=== PATIENT | female | born 1970 | race Caucasian/White ===

== ENCOUNTER 2016-10-04 16:19 | Emergency (ER) | payer OTHER ==
[2016-10-04 16:46] VITALS: BP 120/93
[2016-10-04] MEDS ORDERED: Ondansetron ODT TAB* 4 MG PO ONE (17:01)
--- NOTE | 2016-10-04 18:20 | UC ---
Aleksandar Henao Benjamin, scribed for Ian Salcedo MD on 10/04/16 at 1706 . Abdominal Pain Female HPI - HPI Summary HPI Summary: 45yo female c/o abdominal pain, vomiting, and diarrhea since 2 days ago. Pt reports symptoms initially starting as indigestion kind of pain, then pt started to diarrhea and vomiting. Pt describes having green BM and green vomits. Pt has hx of GERD but hasnt been taking his GERD meds in the last few days due to vomiting. Also reports diaphoresis, but denies any urinary symptoms. Abdominal surgical hx includes cholecystectomy. - History of Current Complaint Chief Complaint: UCAbdominalPain Stated Complaint: VOMITING/DIARRHEA Time Seen by Provider: 10/04/16 16:48 Hx Obtained From: Patient Hx Last Menstrual Period: now Onset/Duration: Lasting Days, Still Present Timing: Constant Severity Initially: Moderate Severity Currently: Moderate Pain Intensity: 6 Pain Scale Used: 0-10 Numeric Location: Diffuse Radiates: No Character: Other - indigestion like Aggravating Factor(s): Nothing Alleviating Factor(s): Nothing Associated Signs and Symptoms: Positive: Diaphoresis, Vomiting, Diarrhea. Negative: Blood in Stool, Urinary Symptoms Allergies/Adverse Reactions: Allergies Allergy/AdvReac Type Severity Reaction Status Date / Time No Known Allergies Allergy Verified 10/04/16 16:47 PMH/Surg Hx/FS Hx/Imm Hx GI/ History: Gastroesophageal Reflux Psychological History: Depression Other History Of: Negative For: Anticoagulant Therapy - Surgical History Surgical History: Yes Surgery Procedure, Year, and Place[place] [place] 16 [place] [facility] [place] [place] [place] - Family History Known Family History: Positive: Hypertension, Diabetes - Social History Occupation: Employed Full-time Lives: With Family Alcohol Use: Occasionally Substance Use Type: Prescribed Smoking Status (MU): Light Every Day Tobacco Smoker Type: Cigarettes Amount Used/How Often: 1/4-1/2 ppd X 20 YEARS Have You Smoked in the Last Year: Yes - Immunization History Most Recent Influenza Vaccination: unknown Most Recent Tetanus Shot: unknown Most Recent Pneumonia Vaccination: never Review of Systems Constitutional: Other - diaphoresis Skin: Negative Eyes: Negative ENT: Negative Respiratory: Negative Cardiovascular: Negative Gastrointestinal: Abdominal Pain, Vomiting, Diarrhea Genitourinary: Negative Motor: Negative Neurovascular: Negative Musculoskeletal: Negative Neurological: Negative Psychological: Negative All Other Systems Reviewed And Are Negative: Yes Physical Exam Triage Information Reviewed: Yes Appearance: Ill-Appearing - mildly Vital Signs: Initial Vital Signs Temp 99.1 F 10/04/16 16:43 Pulse 88 10/04/16 16:43 Resp 12 10/04/16 16:43 BP 120/93 10/04/16 16:43 Pulse Ox 97 10/04/16 16:43 Eyes: Positive: Conjunctiva Clear ENT: Positive: Normal ENT inspection, Hearing grossly normal Neck: Positive: Supple, Nontender Respiratory: Positive: Lungs clear, Normal breath sounds, No respiratory distress Cardiovascular: Positive: RRR, No Murmur Abdomen Description: Positive: No Organomegaly, Soft, Other: - mild gastric tenderess. Negative: CVA Tenderness (R), CVA Tenderness (L) Bowel Sounds: Positive: Present Musculoskeletal: Positive: Strength Intact, ROM Intact Psychological: Positive: Age Appropriate Behavior Skin: Negative: rashes Re-Evaluation - Re-Evaluation First Eval Re-Evaluation Time: 17:49 Change: Improved Comment: Rechecked pt's contidion. Pt states feeling better. She would like to be discharged now. Abd Pain Female Course/Dx - Course Course Of Treatment: Reviewed pts medication and allergy lists. Blood pressure noted. PATIENT IMPROVED IN THE CLINIC AFTER ZOFRAN 4MG PO. PATIENT IS NOT CLINICALLY OBSTRUCTED. ABD PAIN IS UPPER ABD AND MILD. PT HAS ALREADY HAS HER GALLBLADDER OUT. PATIENT TOLERATED WATER IN CLINIC AND WISHES TO GO HOME WITH ZOFRAN RX. I DISCUSSED GETTING TREATMENT IN THE EMERGENCY DEPARTMENT IF YOU DOES NOT FULLY IMPROVE OR SHE GETS WORSE; SHE AND HER AGREED. - Differential Dx/Diagnosis Provider Diagnoses: DEHYDRATION, NAUSEA, VOMITING AND ABDOMINAL PAIN. Discharge - Discharge Plan Condition: Stable Disposition: HOME Prescriptions: Ondansetron ODT TAB* [Zofran 4 MG Odt TAB*] 4 mg PO Q6H PRN #10 tab.odt PRN Reason: Nausea Patient Education Materials: Dehydration (ED), Acute Nausea and Vomiting (ED), Abdominal Pain (ED) Referrals: Lorenza Wheeler NP [Primary Care Provider] - Additional Instructions: FOLLOW UP WITH YOUR DOCTOR. GO TO THE EMERGENCY DEPARTMENT FOR ANY WORSENING OF YOUR CONDITION: PAIN, FEVER , DEHYDRATION, BLOOD IN YOUR STOOL, YOU DO NOT IMPROVE OR QUESTIONS OR CONCERNS. The documentation as recorded by the scribAleksandar garcia Benjamin accurately reflects the service I personally performed and the decisions made by me, Ian Salcedo MD.
== END 2016-10-04 17:57 | disposition home or self-care (01) ==
LOC: UCEAST 16:19
DX: E86.0 Dehydration (principal); R11.2 Nausea with vomiting, unspecified; R10.84 Generalized abdominal pain; K21.9 Gastro-esophageal reflux disease without esophagitis; F32.9 Major depressive disorder, single episode, unspecified; Z90.49 Acquired absence of other specified parts of digestive tract; F17.210 Nicotine dependence, cigarettes, uncomplicated
CPT/HCPCS: 99212; A9270-GY; G0463

== ENCOUNTER 2016-10-05 09:01 | Emergency (ER) | payer OTHER ==
[2016-10-05] MEDS ORDERED: NS 0.9% 1000 ML* 1,000 ML IV ONE ×2 (09:20→10:26)
[2016-10-05] MEDS ORDERED: Ondansetron INJ* 2 MG/ML VIAL IV ONE (09:20)
[2016-10-05] MEDS ORDERED: Ondansetron INJ* 2 MG/ML VIAL ONE (09:23)
[2016-10-05 09:54] LABS: Hematocrit 53 % (35-47); Hemoglobin 18.5 g/dl (12.0-16.0); Mean Corpuscular HGB Conc 35 g/dl (31-36); Mean Corpuscular Hemoglobin 31 pg (27-31); Mean Corpuscular Volume 87 fL (80-97); Mean Platelet Volume 8 um3 (7.4-10.4); Red Blood Count 6.07 10^6/ul (4.0-5.4); Red Cell Distribution Width 14 % (10.5-15); White Blood Count 8.1 10^3/ul (3.5-10.8)
[2016-10-05 09:55] LABS: Comments Flag Yes
[2016-10-05 09:56] LABS: Add Diff/Slide Review? Slide Review Added
[2016-10-05 10:10] LABS: Albumin 4.7 g/dL (3.2-5.2); Anion Gap 10 mmol/L (2-11); BUN/Creatinine Ratio 12.2 (8-20); Blood Urea Nitrogen 14 mg/dL (6-24); CO2 Carbon Dioxide 22 mmol/L (22-32); Calcium 8.8 mg/dL (8.6-10.3); Chloride 100 mmol/L (101-111); EGFR African American 65.6 (>60); Glucose 142 mg/dL (70-100); Potassium 3.1 mmol/L (3.5-5.0); Sodium 132 mmol/L (133-145); Total Protein 8.1 g/dL (6.4-8.9)
[2016-10-05 10:11] LABS: ALT 18 U/L (7-52); AST 21 U/L (13-39); Alkaline Phosphatase 80 U/L (34-104); C Reactive Protein 8.19 mg/L (< 5.00); Globulin 3.4 g/dL (2-4); Lipase 17 U/L (11.0-82.0)
[2016-10-05] MEDS ORDERED: NS 0.9% 1000 ML* 2,000 ML IV ONE (10:27)
[2016-10-05] MEDS ORDERED: Al Hydrox/Mg Hydrox/Simet LIQ* 30 ML UDC PO ONE (10:28)
[2016-10-05] MEDS ORDERED: PROCHLORPERAZINE INJ 5 MG/ML 2 ML VIAL IV ONE (10:29)
[2016-10-05] MEDS ORDERED: Lidocaine 2% VISCOUS* 15 ML UDC PO ONE (10:29)
[2016-10-05 10:41] LABS: Urine Bacteria Absent (Absent); Urine Bilirubin Negative (Negative); Urine Glucose Negative (Negative); Urine Nitrite Negative (Negative)
--- NOTE | 2016-10-05 10:51 | ED ---
Abdominal Pain/Female - HPI Summary HPI Summary: Patient presents with epigastric abdominal discomfort, N/V, diarrhea x 3 days. She was seen at yesterday and given Zofran. She has relief for short periods of time, then will return shortly before she is due for another dose. She ate some [employer] on Tuesday, but denies eating anything new. Denies allergies, takes no medications and is otherwise healthy. PSHx includes cholecystectomy. Diarrhea and emesis are both yellowish green in color. Raphael antibiotic use. She states she has not been able to keep any food or drink down and feels dehydrated. Denies sick contacts, medication changes, or travel. Denies chest pain, SOB or BENDER. - History of Current Complaint Chief Complaint: EDAbdPain Stated Complaint: VOMITING, Time Seen by Provider: 10/05/16 09:10 Hx Obtained From: Patient Hx Last Menstrual Period: now ?: No Onset/Duration: Sudden Onset Timing: Constant Severity Initially: Moderate Severity Currently: Moderate Pain Intensity: 4 Pain Scale Used: 0-10 Numeric Location: Epigastric Radiates: No Character: Cramping, Colicy Aggravating Factor(s): Nothing Alleviating Factor(s): Medications Associated Signs and Symptoms: Positive: Nausea, Vomiting, Diarrhea - Risk Factors Ectopic Risk Factor: Negative Ovarian Torsion Risk Factor: Negative Allergies/Adverse Reactions: Allergies Allergy/AdvReac Type Severity Reaction Status Date / Time No Known Allergies Allergy Verified 10/04/16 16:47 PMH/Surg Hx/FS Hx/Imm Hx Previously Healthy: Yes Endocrine/Hematology History: Denies: Hx Anticoagulant Therapy, Hx Diabetes, Hx Thyroid Disease Cardiovascular History: Reports: Hx Angina - 12/2013- STATES WAS ANXIETY RELATED Denies: Hx Coronary Artery Disease, Hx Hypercholesterolemia, Hx Hypertension , Hx Myocardial Infarction, Hx Pacemaker/ICD, Hx Valvular Heart Disease Respiratory History: Reports: Hx Asthma - PRN PROAIR, Other Respiratory Problems /Disorders - VOCAL CORD POLYPS Denies: Hx Chronic Obstructive Pulmonary Disease (COPD) GI History: Reports: Hx Gastroesophageal Reflux Disease - ROUTINE MEDICATION FOR Denies: Hx Ulcer History: Denies: Hx Renal Disease Sensory History: Reports: Hx Contacts or Glasses - GLASSES Denies: Hx Hearing Aid Opthamlomology History: Reports: Hx Contacts or Glasses - GLASSES Neurological History: Denies: Hx Dementia, Hx Seizures Psychiatric History: Reports: Hx Anxiety - MEDICATION FOR, Hx Depression - MEDICATION FOR Denies: Hx Substance Abuse - Surgical History Surgery Procedure, Year, and Place: [place] [place] 16 [place] [facility] [place] [place] [place] Hx Anesthesia Reactions: Yes - NAUSEA AND VOMITING - Immunization History Hx Pertussis Vaccination: No Immunizations Up to Date: Unable to Obtain/Confirm Infectious Disease History: No Infectious Disease History: Denies: Hx Clostridium Difficile, Hx Hepatitis, Hx Human Immunodeficiency Virus (HIV), History Other Infectious Disease, Traveled Outside the [place] in Last 30 Days - Family History Known Family History: Positive: Hypertension, Diabetes - Social History Occupation: Employed Full-time Lives: With Family Alcohol Use: Occasionally Hx Substance Use: Yes Substance Use Type: Reports: Prescribed Hx Tobacco Use: Yes Smoking Status (MU): Light Every Day Tobacco Smoker Type: Cigarettes Amount Used/How Often: 1/4-1/ ppd X 20 YEARS Have You Smoked in the Last Year: Yes Review of Systems Constitutional: Negative Eyes: Negative Cardiovascular: Negative Respiratory: Negative Positive: Abdominal Pain - epigastric, Vomiting, Diarrhea, Nausea Positive: no symptoms reported, see HPI Musculoskeletal: Negative Neurological: Negative Psychological: Normal All Other Systems Reviewed And Are Negative: Yes Physical Exam Triage Information Reviewed: Yes Vital Signs On Initial Exam: Initial Vitals Temp Pulse Resp BP Pulse Ox 97.7 F 100 17 128/90 98 10/05/16 09:02 10/05/16 09:02 10/05/16 09:02 10/05/16 09:02 10/05/16 09:02 Vital Signs Reviewed: Yes Appearance: Positive: Ill-Appearing Skin: Positive: Warm, Dry Eyes: Positive: Normal, MICA Neck: Positive: Supple, No Lymphadenopathy Respiratory/Lung Sounds: Positive: Clear to Auscultation, Breath Sounds Present Cardiovascular: Positive: RRR, Pulses are Symmetrical in both Upper and Lower Extremities Abdomen Description: Positive: Soft Bowel Sounds: Positive: Hyperactive Musculoskeletal: Positive: Normal, Strength/ROM Intact Neurological: Positive: Sensory/Motor Intact, Alert, Oriented to Person Place, Time - [place] Coma Scale Coma Scale Total: 15 Diagnostics - Vital Signs Vital Signs Temp Pulse Resp BP Pulse Ox 10/05/16 09:26 97.7 F 100 17 128/90 98 10/05/16 09:02 97.7 F 100 17 128/90 98 - Laboratory Lab Results: Lab Results 10/05/16 10/05/16 10/05/16 Range/Units 09:40 09:40 09:40 WBC 8.1 (3.5-10.8) 10^3/ul RBC 6.07 H (4.0-5.4) 10^6/ul Hgb 18.5 H (12.0-16.0) g/dl Hct 53 H (35-47) % MCV 87 (80-97) fL MCH 31 (27-31) pg MCHC 35 (31-36) g/dl RDW 14 (10.5-15) % Plt Count 362 (150-450) 10^3/ul MPV 8 (7.4-10.4) um3 Neut % (Auto) 80.2 (38-83) % Lymph % (Auto) 10.8 L (25-47) % [place] % (Auto) 7.9 (1-9) % Eos % (Auto) 0.8 (0-6) % Baso % (Auto) 0.3 (0-2) % Absolute Neuts (auto) 6.5 (1.5-7.7) 10^3/ul Absolute Lymphs (auto) 0.9 L (1.0-4.8) 10^3/ul Absolute Monos (auto) 0.6 (0-0.8) 10^3/ul Absolute Eos (auto) 0.1 (0-0.6) 10^3/ul Absolute Basos (auto) 0 (0-0.2) 10^3/ul Absolute Nucleated RBC 0.01 10^3/ul Nucleated RBC % 0.1 Sodium 132 L (133-145) mmol/L Potassium 3.1 L (3.5-5.0) mmol/L Chloride 100 L (101-111) mmol/L Carbon Dioxide 22 (22-32) mmol/L Anion Gap 10 (2-11) mmol/L BUN 14 (6-24) mg/dL Creatinine 1.15 H (0.51-0.95) mg/dL Est GFR ( Amer) 65.6 (>60) Est GFR (Non-Af Amer) 51.0 (>60) BUN/Creatinine Ratio 12.2 (8-20) Glucose 142 H (70-100) mg/dL Lactic Acid 2.4 H* (0.5-2.0) mmol/L Calcium 8.8 (8.6-10.3) mg/dL Total Bilirubin 0.50 (0.2-1.0) mg/dL AST 21 (13-39) U/L ALT 18 (7-52) U/L Alkaline Phosphatase 80 (34-104) U/L C-Reactive Protein 8.19 H (< 5.00) mg/L Total Protein 8.1 (6.4-8.9) g/dL Albumin 4.7 (3.2-5.2) g/dL Globulin 3.4 (2-4) g/dL Albumin/Globulin Ratio 1.4 (1-3) Lipase 17 (11.0-82.0) U/L Beta HCG, Quant < 0.60 mIU/mL Result Diagrams: 10/05/16 09:40 10/05/16 09:40 Lab Statement: Any lab studies that have been ordered have been reviewed, and results considered in the medical decision making process. Abdominal Pain Fem Course/Dx - Course Course Of Treatment: Patient given 3L fluid, zofran, compazine, maalox and viscous lidocaine 2% for relief of symptoms. Abdomen non-tender with abdominal pain located primarily in the epigastric region and not worse with palpation. Stool sample given. Will await results. test negative. Compazine prescribed. Patient feeling improved upon discharge. This is likely gastroenteritis given the symptoms. Not concerned with GB d/t cholecystectomy. No pain over the RLQ, rebound tenderness and negative mcburney's point or fever so little concern for appendicitis. No hx of diverticulitis or diverticulosis. She is dehydrated from vomiting and diarrhea. She was repleted with good effect. She is encouraged to follow up with PCP and return if symptoms become worse. Explained will defer at this time for the CT scan based on symptoms, and patient agrees. Medications were reveiwed with patient. Return precautions given. Patient understands and agrees with plan. Ok for discharge. - Diagnoses Differential Diagnosis: Positive: Diverticulitis, Pancreatitis, Urinary Tract Infection Provider Diagnoses: Gastroenteritis Discharge - Discharge Plan Condition: Stable Disposition: HOME Patient Education Materials: Acute Nausea and Vomiting (ED), Gastroenteritis ( ED) Additional Instructions: Dx. Nausea and vomiting from gastroenteritis If you are having episodes of vomiting, you may become dehydrated. Drink plenty of fluids. If you feel you cannot keep enough fluids down, you may supplement with drinks like Gatorade or V8 juice. This will help balance your electrolytes which are lost during dehydration. Take any medication prescribed to you as directed. Compazine: This medicine may make you dizzy. Do not drive or do anything else that could be dangerous until you know how this medicine affects you. Slowly introduce foods into your diet that you can tolerate. Examples of low reactive foods are crackers, soup, rice, and breads. See below. If you have any questions regarding your medications, you may call the office or your pharmacist. If your symptoms fail to improve or worsen, please call your primary care provider or seek other medical attention. Drink small amounts of fluid as tolerated When able to eat follow BRAT diet: Bananas, rice, applesauce, toast Symptoms likely due to viral gastroenteritis Follow up with primary within 5 days Return to ED if develop fever that does not respond to Tylenol or ibuprofen, severe abdominal pain, or any new or worsening symptoms
[2016-10-05 13:03] VITALS: BP 118/80
== END 2016-10-05 13:12 | disposition home or self-care (01) ==
LOC: ED 09:01
DX: K52.9 Noninfective gastroenteritis and colitis, unspecified (principal); R11.2 Nausea with vomiting, unspecified; R19.7 Diarrhea, unspecified; F17.210 Nicotine dependence, cigarettes, uncomplicated; R10.13 Epigastric pain
CPT/HCPCS: 36415; 80053; 81003; 81015; 82272; 83605; 83690; 84702; 85025; 86140; 87045; 87046; 87077; 87086; 87899; 96374; 96375; 99284; A9270-GY; J0780; J2405

== ENCOUNTER 2016-10-08 08:52 | Emergency (ER) | payer OTHER ==
--- NOTE | 2016-10-08 08:54 | PN ---
Progress Note - Progress Note Date of Service: 10/05/16 Note: negative shiga toxin in stool culture. positive for occult blood.
[2016-10-08] MEDS ORDERED: Ondansetron INJ* 2 MG/ML VIAL IV ONE (09:20)
[2016-10-08] MEDS ORDERED: Famotidine IV* 10 MG/ML 2 ML (20 mg) IV ONE (09:20)
[2016-10-08] MEDS ORDERED: NS 0.9% 1000 ML* 2,000 ML IV ONE (09:20)
--- NOTE | 2016-10-08 10:16 | RAD ---
Indication: Pain. Flat and upright views of the abdomen demonstrates no free air. There is air throughout the colon. No dilated loops of bowel are noted. Patient status post cholecystectomy. IMPRESSION: Patient is status post cholecystectomy with no free air or obstruction.
[2016-10-08 10:58] LABS: Hematocrit 49 % (35-47); Hemoglobin 17.3 g/dl (12.0-16.0); Mean Corpuscular HGB Conc 35 g/dl (31-36); Mean Corpuscular Hemoglobin 30 pg (27-31); Mean Corpuscular Volume 86 fL (80-97); Mean Platelet Volume 8 um3 (7.4-10.4); Red Blood Count 5.76 10^6/ul (4.0-5.4); Red Cell Distribution Width 13 % (10.5-15); White Blood Count 7.7 10^3/ul (3.5-10.8)
[2016-10-08 11:18] LABS: Albumin 4.4 g/dL (3.2-5.2); BUN/Creatinine Ratio 10.5 (8-20); C Reactive Protein 18.12 mg/L (< 5.00); Calcium 8.9 mg/dL (8.6-10.3); EGFR African American 81.8 (>60); EGFR Non-African American 63.6 (>60); Globulin 2.8 g/dL (2-4); Total Bilirubin 0.9 mg/dL (0.2-1.0); Total Protein 7.2 g/dL (6.4-8.9)
[2016-10-08 11:27] LABS: Potassium 2.7 mmol/L (3.5-5.0)
[2016-10-08] MEDS ORDERED: Potassium Chlor TAB* 20 MEQ TAB.ER PO ONE (11:33)
[2016-10-08 11:53] LABS: Urine Bacteria Absent (Absent); Urine Bilirubin Negative (Negative); Urine Glucose Negative (Negative); Urine Nitrite Negative (Negative)
[2016-10-08 12:02] LABS: Magnesium 1.8 mg/dL (1.9-2.7)
[2016-10-08] MEDS: KCL 10 MEQ/50 ML IVPREMIX* 10 MEQ/50 ML BAG IV SCH ×2 (12:43→13:43)
[2016-10-08] MEDS ORDERED: Magnesium Oxide TAB* 400 MG PO ONE (13:11)
--- NOTE | 2016-10-08 14:18 | RAD ---
INDICATION: Elevated liver function studies COMPARISON: None TECHNIQUE: Longitudinal and transverse scans of the right upper quadrant were obtained. Doppler interrogation of the hepatic and portal venous system was performed. FINDINGS: Liver: The liver is normal in size. There is hepatic steatosis. There is no focal mass. The liver measures 14.7 cm in cephalocaudal dimension. Vessels: There is normal hepatic and portal venous flow. Bile ducts: There is no evidence of intrahepatic or extrahepatic ductal dilatation. The common duct measures 0.5 cm. Gallbladder: Cholecystectomy. Pancreas: The visualized pancreas appears normal. Pancreatic tail is not well evaluated Right kidney: The right kidney is normal in size and echogenicity. There are no masses or calculi. There is no evidence of hydronephrosis. The right kidney measures 12.1 x 4.3 x 4.9 cm. IVC and aorta: The proximal aorta and superior vena cava appear normal. Fluid: There is no ascites. Other: None. IMPRESSION: HEPATIC STEATOSIS. CHOLECYSTECTOMY.
[2016-10-08 15:26] LABS: Urine Bilirubin Negative (Negative); Urine Glucose Negative (Negative); Urine Nitrite Negative (Negative)
[2016-10-08 15:37] VITALS: BP 115/84
--- NOTE | 2016-10-08 18:51 | ED ---
José Henao Angela, scribed for Kyaw Sahni MD on 10/08/16 at 0938 . GI/ HPI - HPI Summary HPI Summary: Pt is a 45 y/o female presenting to [facility] c/o nausea, vomiting, diarrhea x6 days. Pt reports she was seen in the ED yesterday and her urine culture revealed E. coli and was diagnosed with a UTI. She was prescribed Bactrim and has taken one dose yesterday and this morning. She is in the ED because she has nausea and vomiting, now with diarrhea unable to take her Bactrim dose. Pt denies abd pain, fever,chills, chest pain, SOB, palpitations. - History of Current Complaint Chief Complaint: EDNauseaVomitDiarrh Time Seen by Provider: 10/08/16 09:20 Stated Complaint: ABD PAIN,VOMITTING,NAUSEA Hx Obtained From: Patient Hx Last Menstrual Period: now Onset/Duration: Started Days Ago Timing: Lasting Days Pain Intensity: 6 Associated Signs and Symptoms: Positive: Nausea, Vomiting, Diarrhea - Allergy/Home Medications Allergies/Adverse Reactions: Allergies Allergy/AdvReac Type Severity Reaction Status Date / Time No Known Allergies Allergy Verified 10/08/16 09:14 PMH/Surg Hx/FS Hx/Imm Hx Endocrine/Hematology History: Denies: Hx Anticoagulant Therapy, Hx Diabetes, Hx Thyroid Disease Cardiovascular History: Reports: Hx Angina - 12/2013- STATES WAS ANXIETY RELATED Denies: Hx Coronary Artery Disease, Hx Hypercholesterolemia, Hx Hypertension , Hx Myocardial Infarction, Hx Pacemaker/ICD, Hx Valvular Heart Disease Respiratory History: Reports: Hx Asthma - PRN PROAIR, Other Respiratory Problems /Disorders - VOCAL CORD POLYPS Denies: Hx Chronic Obstructive Pulmonary Disease (COPD) GI History: Reports: Hx Gastroesophageal Reflux Disease - ROUTINE MEDICATION FOR Denies: Hx Ulcer History: Denies: Hx Renal Disease Sensory History: Reports: Hx Contacts or Glasses - GLASSES Denies: Hx Hearing Aid Opthamlomology History: Reports: Hx Contacts or Glasses - GLASSES Neurological History: Denies: Hx Dementia, Hx Seizures Psychiatric History: Reports: Hx Anxiety - MEDICATION FOR, Hx Depression - MEDICATION FOR Denies: Hx Substance Abuse - Surgical History Surgery Procedure, Year, and Place: tubal ligation-[facility]. breast reduction-AGE 16 - [facility]. cyst removed from thumb-[facility]. cholecystectomy-[facility] Hx Anesthesia Reactions: Yes - NAUSEA AND VOMITING Infectious Disease History: Denies: Hx Clostridium Difficile, Hx Hepatitis, Hx Human Immunodeficiency Virus (HIV), History Other Infectious Disease, Traveled Outside the [place] in Last 30 Days - Family History Known Family History: Positive: Hypertension, Diabetes - Social History Alcohol Use: Occasionally Hx Substance Use: Yes Substance Use Type: Reports: Prescribed Hx Tobacco Use: Yes Smoking Status (MU): Light Every Day Tobacco Smoker Type: Cigarettes Amount Used/How Often: 1/4-1/2 ppd X 20 YEARS Have You Smoked in the Last Year: Yes Review of Systems Negative: Fever, Chills Negative: Palpitations, Chest Pain Negative: Shortness Of Breath Positive: Vomiting, Diarrhea, Nausea. Negative: Abdominal Pain All Other Systems Reviewed And Are Negative: Yes Physical Exam - Summary Physical Exam Summary: VITAL SIGNS: Reviewed. GENERAL: Patient is a well-developed and nourished male who is lying comfortable in the stretcher. Patient is not in any acute respiratory distress. HEAD AND FACE: Normocephalic and atraumatic. EYES: PERRLA, EOMI x 2, No injected conjunctiva. EARS: Hearing grossly intact. Ear canals and tympanic membranes are WNL. MOUTH: Oropharynx within normal limits. NECK: Supple, trachea is midline, no adenopathy, no JVD. CHEST: Symmetric, no tenderness at palpation LUNGS: Clear to auscultation bilaterally. No wheezing or crackles. CVS: RRR, S1 and S2 present, no murmurs or gallops appreciated. ABDOMEN: Soft, non-tender. No signs of distention. Positive bowel sounds. No rebound no guarding, and no masses palpated. No abdominal bruit or pulsations. EXTREMITIES: FROM in all major joints, no edema, no cyanosis or clubbing. NEURO: Alert and oriented x 3. No acute neurological deficits. Speech is normal. SKIN: Dry and warm Triage Information Reviewed: Yes Vital Signs On Initial Exam: Initial Vitals Temp Pulse Resp BP Pulse Ox 96.7 F 100 16 132/89 97 10/08/16 09:14 10/08/16 09:14 10/08/16 09:14 10/08/16 09:14 10/08/16 09:14 Vital Signs Reviewed: Yes Diagnostics - Vital Signs Vital Signs Temp Pulse Resp BP Pulse Ox 10/08/16 09:14 96.7 F 100 16 132/89 97 - Laboratory Lab Results: Lab Results 10/08/16 10/08/16 10/08/16 Range/Units 10:39 10:39 10:39 WBC 7.7 (3.5-10.8) 10^3/ul RBC 5.76 H (4.0-5.4) 10^6/ul Hgb 17.3 H (12.0-16.0) g/dl Hct 49 H (35-47) % MCV 86 (80-97) fL MCH 30 (27-31) pg MCHC 35 (31-36) g/dl RDW 13 (10.5-15) % Plt Count 309 (150-450) 10^3/ul MPV 8 (7.4-10.4) um3 Neut % (Auto) 71.3 (38-83) % Lymph % (Auto) 14.0 L (25-47) % [place] % (Auto) 11.5 H (1-9) % Eos % (Auto) 2.2 (0-6) % Baso % (Auto) 1.0 (0-2) % Absolute Neuts (auto) 5.5 (1.5-7.7) 10^3/ul Absolute Lymphs (auto) 1.1 (1.0-4.8) 10^3/ul Absolute Monos (auto) 0.9 H (0-0.8) 10^3/ul Absolute Eos (auto) 0.2 (0-0.6) 10^3/ul Absolute Basos (auto) 0.1 (0-0.2) 10^3/ul Absolute Nucleated RBC 0.01 10^3/ul Nucleated RBC % 0.2 Sodium 130 L (133-145) mmol/L Potassium 2.7 L* (3.5-5.0) mmol/L Chloride 99 L (101-111) mmol/L Carbon Dioxide 20 L (22-32) mmol/L Anion Gap 11 (2-11) mmol/L BUN 10 (6-24) mg/dL Creatinine 0.95 (0.51-0.95) mg/dL Est GFR ( Amer) 81.8 (>60) Est GFR (Non-Af Amer) 63.6 (>60) BUN/Creatinine Ratio 10.5 (8-20) Glucose 128 H (70-100) mg/dL Lactic Acid 2.7 H* (0.5-2.0) mmol/L Calcium 8.9 (8.6-10.3) mg/dL Magnesium 1.8 L (1.9-2.7) mg/dL Total Bilirubin 0.90 (0.2-1.0) mg/dL AST 213 H (13-39) U/L ALT 199 H (7-52) U/L Alkaline Phosphatase 210 H (34-104) U/L Troponin I 0.00 (<0.04) ng/mL C-Reactive Protein 18.12 H (< 5.00) mg/L Total Protein 7.2 (6.4-8.9) g/dL Albumin 4.4 (3.2-5.2) g/dL Globulin 2.8 (2-4) g/dL Albumin/Globulin Ratio 1.6 (1-3) Amylase 20 L (29-103) U/L Lipase 20 (11.0-82.0) U/L Urine Color Urine Appearance Urine pH (5-9) Ur Specific Man (1.010-1.030) Urine Protein (Negative) Urine Ketones (Negative) Urine Blood (Negative) Urine Nitrate (Negative) Urine Bilirubin (Negative) Urine Urobilinogen (Negative) Ur Leukocyte Esterase (Negative) Urine WBC (Auto) (Absent) Urine RBC (Auto) (Absent) Ur Squamous Epith Cells (Absent) Urine Bacteria (Absent) Hyaline Casts (Absent) Urine Glucose (Negative) Hepatitis A IgM Ab (Nonreactive) Hep Bs Antigen (Nonreactive) Hep B Core IgM Ab (Nonreactive) Hepatitis C Antibody (Nonreactive) 10/08/16 10/08/16 10/08/16 Range/Units 10:39 11:32 14:43 WBC (3.5-10.8) 10^3/ul RBC (4.0-5.4) 10^6/ul Hgb (12.0-16.0) g/dl Hct (35-47) % MCV (80-97) fL MCH (27-31) pg MCHC (31-36) g/dl RDW (10.5-15) % Plt Count (150-450) 10^3/ul MPV (7.4-10.4) um3 Neut % (Auto) (38-83) % Lymph % (Auto) (25-47) % [place] % (Auto) (1-9) % Eos % (Auto) (0-6) % Baso % (Auto) (0-2) % Absolute Neuts (auto) (1.5-7.7) 10^3/ul Absolute Lymphs (auto) (1.0-4.8) 10^3/ul Absolute Monos (auto) (0-0.8) 10^3/ul Absolute Eos (auto) (0-0.6) 10^3/ul Absolute Basos (auto) (0-0.2) 10^3/ul Absolute Nucleated RBC 10^3/ul Nucleated RBC % Sodium (133-145) mmol/L Potassium (3.5-5.0) mmol/L Chloride (101-111) mmol/L Carbon Dioxide (22-32) mmol/L Anion Gap (2-11) mmol/L BUN (6-24) mg/dL Creatinine (0.51-0.95) mg/dL Est GFR ( Amer) (>60) Est GFR (Non-Af Amer) (>60) BUN/Creatinine Ratio (8-20) Glucose (70-100) mg/dL Lactic Acid (0.5-2.0) mmol/L Calcium (8.6-10.3) mg/dL Magnesium (1.9-2.7) mg/dL Total Bilirubin (0.2-1.0) mg/dL AST (13-39) U/L ALT (7-52) U/L Alkaline Phosphatase (34-104) U/L Troponin I (<0.04) ng/mL C-Reactive Protein (< 5.00) mg/L Total Protein (6.4-8.9) g/dL Albumin (3.2-5.2) g/dL Globulin (2-4) g/dL Albumin/Globulin Ratio (1-3) Amylase (29-103) U/L Lipase (11.0-82.0) U/L Urine Color Lillian Straw Urine Appearance Cloudy Clear Urine pH 6.0 7.0 (5-9) Ur Specific Man 1.017 1.003 L (1.010-1.030) Urine Protein 1+(30 mg/dl) H Negative (Negative) Urine Ketones Negative Negative (Negative) Urine Blood Negative Negative (Negative) Urine Nitrate Negative Negative (Negative) Urine Bilirubin Negative Negative (Negative) Urine Urobilinogen Positive H Negative (Negative) Ur Leukocyte Esterase Trace H Negative (Negative) Urine WBC (Auto) Trace(0-5/hpf) (Absent) Urine RBC (Auto) 2+(6-10/hpf) H (Absent) Ur Squamous Epith Cells Present H (Absent) Urine Bacteria Absent (Absent) Hyaline Casts Present H (Absent) Urine Glucose Negative Negative (Negative) Hepatitis A IgM Ab Nonreactive (Nonreactive) Hep Bs Antigen Nonreactive (Nonreactive) Hep B Core IgM Ab Nonreactive (Nonreactive) Hepatitis C Antibody Nonreactive (Nonreactive) Result Diagrams: 10/08/16 10:39 10/08/16 10:39 Lab Statement: Any lab studies that have been ordered have been reviewed, and results considered in the medical decision making process. - Radiology Abdomen XR Xray Interpretation: No Acute Changes - IMPRESSION: Patient is status post cholecystectomy with no free air or obstruction. Radiology Interpretation Completed By: Radiologist - Ultrasound No standard instances Ultrasound Interpretation: Positive (See Comments) - US Abdomen - IMPRESSION: Hepatic steatosis. Cholecystectomy Ultrasound Interpretation Completed By: Radiologist - EKG 10:12 Cardiac Rate: NL - 91 bpm EKG Rhythm: Sinus Rhythm EKG Interpretation: ST depression in I, II, V2, V3, V4, V5, and V6 GIGU Course/Dx - Course Course Of Treatment: Pt is a 45 y/o female presenting to [facility] c/o nausea, vomiting, diarrhea x6 days. Pt reports she was seen in the ED yesterday and her urine culture revealed E. coli and was diagnosed with a UTI. She was prescribed Bactrim and has taken one dose yesterday and this morning. She is in the ED because she has nausea and vomiting, now with diarrhea unable to take her Bactrim dose. Pt denies abd pain, fever,chills, chest pain, SOB, palpitations. Test results shows an increased H and H of 17.3/49, sodium of 130, potassium 2.7 , magnesium 1.8 (for which pt was given potassium chloride, IV run, and magnesium oxide), glucose of 128, AST 213, ALT 199, with a CRP of 18.12. Urinalysis is negative for UTI. Since the pt had increased LFTs, I decided to do a hepatic panel, which is non reactive. I also did an abdomen US, which shows hepatic steatosis and cholecystectomy. I did an X-ray of the abdomen which shows status post cholecystectomy with no free air or obstruction. The pt had a urine culture in the past that was negative for UTI, therefore I dont think she needs to take any type of antibiotics. In the ED course, she was hydrated with IV fluids and given Zofran for nausea and vomiting. After all these medications, the pts symptoms have resolved. The EKG is abnormal with ST depressions but the pt has no chest pain, SOB, epigastric pain or any signs for coronary syndrome. I also ordered a troponin, which resulted 0. Upon further discussion, she had a stress test a few years ago due to an abnormal EKG. The pt is feeling better, she only had 1 episode of diarrhea in the ED, and she is no longer nauseous. The pt was observed in the ED for 7 hours and half without any recurrent symptoms, so we will discharge her home and have her follow up with her PCP requesting repeat LFTs. She was also recommended that if she continues to have diarrhea she can return to the ED. She understands and agrees. She is hemodynamically stable, and alert and oriented x3. I discussed all the findings and test results with the patient. Patient was instructed to return to the emergency room immediately if any of the symptoms return or worsens. Plan of care was discussed with the patient and understands and agrees. All questions were answered at patient satisfaction. There were no further complaints or concerns. - Diagnoses Provider Diagnoses: Nausea, vomiting and diarrhea Discharge - Discharge Plan Condition: Stable Disposition: HOME Patient Education Materials: Acute Diarrhea (ED), Acute Nausea and Vomiting (ED ) Referrals: Lorenza Wheeler NP [Primary Care Provider] - Additional Instructions: Please follow up with your primary care physician to assure your symptoms are improving. The documentation as recorded by the José lopez Angela accurately reflects the service I personally performed and the decisions made by me, Kyaw Sahni MD.
== END 2016-10-08 16:18 | disposition home or self-care (01) ==
LOC: ED 08:52
DX: R11.2 Nausea with vomiting, unspecified (principal); R10.9 Unspecified abdominal pain; R19.7 Diarrhea, unspecified; F17.210 Nicotine dependence, cigarettes, uncomplicated
CPT/HCPCS: 36415; 74020; 76705; 80053; 80074; 81003; 81015; 82150; 83605; 83630; 83690; 83735; 84484; 85025; 86140; 87045; 87046; 87077; 87086; 87493; 87899; 93005; 96374; 96375; 99283; A9270-GY; J2405; J3480

== ENCOUNTER 2017-10-10 19:29 | Emergency (ER) | payer OTHER ==
--- NOTE | 2017-10-10 21:56 | RAD ---
EXAM: US Duplex Left Lower Extremity Veins EXAM DATE/TIME: Exam ordered 10/10/2017 9:21 PM CLINICAL HISTORY: 46 years old, female; Pain; Leg, lower; Left; Additional info: Redness swelling left ankle, distal lower leg TECHNIQUE: Real-time duplex ultrasound scan of the left lower extremity veins integrating B-mode two-dimensional vascular structure, Doppler spectral analysis, color flow Doppler imaging and compression. COMPARISON: US - LE VEIN L VL LOWER EXT VEINS LEFT 2012-07-08 10:42 FINDINGS: Deep veins: Unremarkable. No DVT in the visualized common femoral, femoral, proximal deep femoral or popliteal veins. The veins demonstrate normal color flow, are normally compressible, with normal phasic flow and/or augmentation response. Superficial veins: Unremarkable. No thrombus in the visualized great saphenous vein. Soft tissues: No acute findings. No popliteal cyst. IMPRESSION: Negative left lower extremity venous duplex exam without evidence of deep venous thrombosis.
[2017-10-10] MEDS ORDERED: Sulfamethox/Trimethoprim DS 800/160* TAB PO ONE (22:17)
--- NOTE | 2017-10-10 22:18 | ED ---
Lower Extremity - HPI Summary HPI Summary: Patient presents with redness, swelling, ecchymosis to left ankle and lateral posterior foot starting yesterday night. Patient is on brilinta, sent by PCP for evaluation of possible DVT. Denies trauma, fever, cough, sore throat, CP, SOB, N/V/D, abdominal pain, change in urine, change in BM. Medical history is cardiac stents, depression. - History of Current Complaint Chief Complaint: EDExtremityLower Stated Complaint: LT LEG SWOLLEN Time Seen by Provider: 10/10/17 20:31 Hx Obtained From: Patient Hx Last Menstrual Period: now Mechanism Of Injury: Unknown Onset of Pain: Hours Onset/Duration: Hours Severity Initially: Mild Severity Currently: Mild Pain Intensity: 0 Pain Scale Used: 0-10 Numeric Timing: Constant Location: Is Discrete @ Character Of Pain: Throbbing Associated Signs And Symptoms: Positive: Swelling, Bruising Aggravating Factor(s): Ambulation, Weight Bearing Able to Bear Weight: Yes - Allergies/Home Medications Allergies/Adverse Reactions: Allergies Allergy/AdvReac Type Severity Reaction Status Date / Time No Known Allergies Allergy Verified 10/10/17 19:37 PMH/Surg Hx/FS Hx/Imm Hx Endocrine/Hematology History: Denies: Hx Anticoagulant Therapy, Hx Diabetes, Hx Thyroid Disease Cardiovascular History: Reports: Hx Angina - 12/2013- STATES WAS ANXIETY RELATED Denies: Hx Coronary Artery Disease, Hx Hypercholesterolemia, Hx Hypertension , Hx Myocardial Infarction, Hx Pacemaker/ICD, Hx Valvular Heart Disease Respiratory History: Reports: Hx Asthma - PRN PROAIR, Other Respiratory Problems /Disorders - VOCAL CORD POLYPS Denies: Hx Chronic Obstructive Pulmonary Disease (COPD) GI History: Reports: Hx Gastroesophageal Reflux Disease - ROUTINE MEDICATION FOR Denies: Hx Ulcer History: Denies: Hx Renal Disease Sensory History: Reports: Hx Contacts or Glasses - GLASSES Denies: Hx Hearing Aid Opthamlomology History: Reports: Hx Contacts or Glasses - GLASSES Neurological History: Denies: Hx Dementia, Hx Seizures Psychiatric History: Reports: Hx Anxiety - MEDICATION FOR, Hx Depression - MEDICATION FOR Denies: Hx Substance Abuse - Surgical History Surgery Procedure, Year, and Place: tubal ligation-[facility]. breast reduction-AGE 16 - [facility]. [facility] [place] [place]ole[place]ectomy[place] [place] Hx Anesthesia Reactions: Yes - NAUSEA AND VOMITING Infectious Disease History: No Infectious Disease History: Denies: Hx Clostridium Difficile, Hx Hepatitis, Hx Human Immunodeficiency Virus (HIV), History Other Infectious Disease, Traveled Outside the [place] in Last 30 Days - Family History Known Family History: Positive: Hypertension, Diabetes - Social History Alcohol Use: Occasionally Hx Substance Use: Yes Substance Use Type: Reports: Prescribed Hx Tobacco Use: Yes Smoking Status (MU): Light Every Day Tobacco Smoker Type: Cigarettes Amount Used/How Often: 1/4-1/2 ppd X 20 YEARS Have You Smoked in the Last Year: Yes Review of Systems Constitutional: Negative Eyes: Negative ENT: Negative Cardiovascular: Negative Respiratory: Negative Gastrointestinal: Negative Genitourinary: Negative Musculoskeletal: Negative Skin: Other Neurological: Negative Psychological: Normal All Other Systems Reviewed And Are Negative: Yes Physical Exam - Summary Physical Exam Summary: Ecchymosis and swelling to left lateral foot. Area of erythema and extra warmth to distal do. Evidence of abrasion to distal anterior do erythema. Calf soft nontender. No deformity noted. PMS intact distally Triage Information Reviewed: Yes Vital Signs On Initial Exam: Initial Vitals Temp Pulse Resp BP Pulse Ox 97.6 F 115 18 138/93 96 10/10/17 19:33 10/10/17 19:33 10/10/17 19:33 10/10/17 19:33 10/10/17 19:33 Vital Signs Reviewed: Yes Appearance: Positive: Well-Appearing Skin: Positive: Warm Head/Face: Positive: Normal Head/Face Inspection Eyes: Positive: Normal Neck: Positive: Supple Respiratory/Lung Sounds: Positive: Clear to Auscultation Cardiovascular: Positive: Normal Abdomen Description: Positive: Nontender Musculoskeletal: Positive: Normal Neurological: Positive: Normal Psychiatric: Positive: Normal AVPU Assessment: Alert - Jovanny Coma Scale Best Eye Response: 4 - Spontaneous Best Motor Response: 6 - Obeys Commands Best Verbal Response: 5 - Oriented Coma Scale Total: 15 Diagnostics - Vital Signs Vital Signs Temp Pulse Resp BP Pulse Ox 10/10/17 19:33 97.6 F 115 18 138/93 96 - Laboratory Lab Statement: Any lab studies that have been ordered have been reviewed, and results considered in the medical decision making process. - Ultrasound No standard instances Ultrasound Interpretation: No Acute Changes - Negative for DVT. Ultrasound Interpretation Completed By: Radiologist Lower Extremity Course/Dx - Course Course Of Treatment: Patient presents with redness, swelling, ecchymosis to left ankle and lateral posterior foot starting yesterday night. Patient is on brilinta, sent by PCP for evaluation of possible DVT. Denies trauma, fever, cough, sore throat, CP, SOB, N/V/D, abdominal pain, change in urine, change in BM. Medical history is cardiac stents, depression. Physical exam:Ecchymosis and swelling to left lateral foot. Area of erythema and extra warmth to distal do. Evidence of abrasion to distal anterior do erythema. Calf soft nontender. No deformity noted. PMS intact distally. Ultrasound negative for DVT. Likely cellulitis. Rx for Bactrim. Follow-up with primary care - Diagnoses Provider Diagnoses: Cellulitis Discharge - Sign-Out/Discharge Documenting (check all that apply): Patient Departure - Discharge Plan Condition: Stable Disposition: HOME Prescriptions: Sulfamethox/Trimethoprim DS* [Bactrim DS 800/160 TAB*] 1 tab PO BID 10 Days #20 tab Patient Education Materials: Cellulitis (ED) Referrals: Lorenza Wheeler NP [Primary Care Provider] - - Billing Disposition and Condition Condition: STABLE Disposition: Home
[2017-10-10 23:03] VITALS: BP 135/95
== END 2017-10-10 23:02 | disposition home or self-care (01) ==
LOC: ED 19:29
DX: L03.116 Cellulitis of left lower limb (principal); K21.9 Gastro-esophageal reflux disease without esophagitis; F32.9 Major depressive disorder, single episode, unspecified; F41.9 Anxiety disorder, unspecified; J45.909 Unspecified asthma, uncomplicated
CPT/HCPCS: 99281; A9270-GY

== ENCOUNTER → 2017-10-31 21:47 | Emergency (ER) | payer OTHER ==
--- NOTE | 2017-10-31 23:02 | ED ---
Skin Complaint - HPI Summary HPI Summary: 46-year-old female presents with a rash since she will that this morning. She states the rash on her lower legs. she states the rash is not itchy. She has not tried anything. No fever or chills. no new products or soaps. She has never had this rash before. States it as a burning type pain. She denies any history of MRSA. She has history of stent placement. She is not diabetic. no chest pain or SOB. no recent illness. no history of ITP. - History of Current Complaint Chief Complaint: EDExtremityLower Time Seen by Provider: 10/31/17 22:43 Stated Complaint: LT AND RT LEG RASH Hx Last Menstrual Period: now Pain Intensity: 7 - Allergy/Home Medications Allergies/Adverse Reactions: Allergies Allergy/AdvReac Type Severity Reaction Status Date / Time No Known Allergies Allergy Verified 10/31/17 21:52 PMH/Surg Hx/FS Hx/Imm Hx Endocrine/Hematology History: Denies: Hx Anticoagulant Therapy, Hx Diabetes, Hx Thyroid Disease Cardiovascular History: Reports: Hx Angina - 12/2013- STATES WAS ANXIETY RELATED Denies: Hx Coronary Artery Disease, Hx Hypercholesterolemia, Hx Hypertension , Hx Myocardial Infarction, Hx Pacemaker/ICD, Hx Valvular Heart Disease Respiratory History: Reports: Hx Asthma - PRN PROAIR, Other Respiratory Problems /Disorders - VOCAL CORD POLYPS Denies: Hx Chronic Obstructive Pulmonary Disease (COPD) GI History: Reports: Hx Gastroesophageal Reflux Disease - ROUTINE MEDICATION FOR Denies: Hx Ulcer History: Denies: Hx Renal Disease Sensory History: Reports: Hx Contacts or Glasses - GLASSES Denies: Hx Hearing Aid Opthamlomology History: Reports: Hx Contacts or Glasses - GLASSES Neurological History: Denies: Hx Dementia, Hx Seizures Psychiatric History: Reports: Hx Anxiety - MEDICATION FOR, Hx Depression - MEDICATION FOR Denies: Hx Substance Abuse - Surgical History Surgery Procedure, Year, and Place: tubal ligation-[facility]. breast [place]AGE 16 [place] [facility] [place] from [place] [place] [place] Hx Anesthesia Reactions: Yes - NAUSEA AND VOMITING Infectious Disease History: No Infectious Disease History: Denies: Hx Clostridium Difficile, Hx Hepatitis, Hx Human Immunodeficiency Virus (HIV), History Other Infectious Disease, Traveled Outside the [place] in Last 30 Days - Family History Known Family History: Positive: Hypertension, Diabetes - Social History Alcohol Use: Occasionally Hx Substance Use: Yes Substance Use Type: Reports: Prescribed Hx Tobacco Use: Yes Smoking Status (MU): Light Every Day Tobacco Smoker Type: Cigarettes Amount Used/How Often: 1/4-1/2 ppd X 20 YEARS Have You Smoked in the Last Year: Yes Review of Systems Negative: Fever Negative: Chest Pain Negative: Shortness Of Breath Positive: Rash All Other Systems Reviewed And Are Negative: Yes Physical Exam Triage Information Reviewed: Yes Vital Signs On Initial Exam: Initial Vitals Temp Pulse Resp BP Pulse Ox 98.1 F 96 20 138/82 95 10/31/17 21:50 10/31/17 21:50 10/31/17 21:50 10/31/17 21:50 10/31/17 21:50 Vital Signs Reviewed: Yes Appearance: Positive: Well-Appearing Skin: Positive: Other - papules across legs, some petechia. Head/Face: Positive: Normal Head/Face Inspection Eyes: Positive: Normal, Conjunctiva Clear ENT: Positive: Pharynx normal Respiratory/Lung Sounds: Positive: Clear to Auscultation, Breath Sounds Present Cardiovascular: Positive: Normal, RRR Musculoskeletal: Positive: Normal Neurological: Positive: Normal Psychiatric: Positive: Normal Diagnostics - Vital Signs Vital Signs Temp Pulse Resp BP Pulse Ox 10/31/17 21:50 98.1 F 96 20 138/82 95 - Laboratory Result Diagrams: 10/31/17 22:59 Lab Statement: Any lab studies that have been ordered have been reviewed, and results considered in the medical decision making process. Course/Dx - Course Course Of Treatment: 46-year-old female presents with a rash since she will that this morning. She states the rash on her lower legs. she states the rash is not itchy. She has not tried anything. No fever or chills. no new products or soaps. She has never had this rash before. States it as a burning type pain. She denies any history of MRSA. She has history of stent placement. She is not diabetic. no chest pain or SOB. no recent illness. no history of ITP. on exam has papules across legs. some petechia. got lab work to make sure not ITP and platelets normal. wbc normal. no evidence of cellulitis. told to place hydrocoritsone on area. patient understand and agrees with plan. - Differential Diagnoses - Skin Complaint Differential Diagnoses: Contact Dermatitis, Urticaria, Other - itp, bug bites - Diagnoses Provider Diagnoses: Rash Discharge - Sign-Out/Discharge Documenting (check all that apply): Patient Departure - Discharge Plan Condition: Good Disposition: HOME Patient Education Materials: Acute Rash (ED) Referrals: Enmanuel Brar MD [Primary Care Provider] - Additional Instructions: can take Benadryl every 6 hours for any pain can apply hydrocortisone to area Follow up with primary within 5 days Return to ED if develop fever, any new or worsening symptoms - Billing Disposition and Condition Condition: GOOD Disposition: Home
[2017-10-31 23:09] LABS: ABS Basophils 0 10^3/ul (0-0.2); ABS Eosinophils 0.2 10^3/ul (0-0.6); ABS Lymphocytes 1.3 10^3/ul (1.0-4.8); ABS Monocytes 0.4 10^3/ul (0-0.8); ABS Neutrophils 3.1 10^3/ul (1.5-7.7); ABS Nucleated RBC 0 10^3/ul; Hematocrit 33 % (35-47); Hemoglobin 11.6 g/dl (12.0-16.0); Lymphocyte % 25.5 % (25-47); Mean Corpuscular HGB Conc 35 g/dl (31-36); Mean Corpuscular Hemoglobin 30 pg (27-31); Mean Corpuscular Volume 86 fL (80-97); Mean Platelet Volume 7.1 um3 (7.4-10.4); Nucleated Red Blood Cells % 0.1; Platelet Count 326 10^3/ul (150-450); Red Blood Count 3.88 10^6/ul (4.00-5.40); Red Cell Distribution Width 14 % (10.5-15)
[2017-11-01] VITALS: BP 124/69
== END | disposition home or self-care (01) ==
LOC: ED 21:47
DX: R21 Rash and other nonspecific skin eruption (principal); F17.210 Nicotine dependence, cigarettes, uncomplicated; Z96.9 Presence of functional implant, unspecified
CPT/HCPCS: 36415; 85025; 86140; 99282

== ENCOUNTER 2017-11-18 12:23 | Emergency (ER) | payer OTHER ==
[2017-11-18 13:08] VITALS: BP 120/80
--- NOTE | 2017-11-18 14:46 | UC ---
Lower Extremity/Ankle HPI - HPI Summary HPI Summary: 46-year-old male presents with one-week history of left leg tenderness and bruising after slipping and falling in her backyard one week ago. Patient is on Brillinta for acute coronary syndrome. Denies calf pain or tenderness, chest pain, shortness of breath, erythema, increased warmth, lower extremity edema, numbness, tingling, or extremity weakness. - History of Current Complaint Chief Complaint: UCLowerExtremity Stated Complaint: LEG INJURY Time Seen by Provider: 11/18/17 14:34 Hx Obtained From: Patient Hx Last Menstrual Period: 10/22/17 Onset/Duration: Sudden Onset, Lasting Weeks - 1 Severity Initially: Moderate Severity Currently: Moderate Pain Intensity: 7 Aggravating Factor(s): Other - touch Alleviating Factor(s): Rest, OTC Meds - ibuprofen Able to Bear Weight: Yes - Allergies/Home Medications Allergies/Adverse Reactions: Allergies Allergy/AdvReac Type Severity Reaction Status Date / Time No Known Allergies Allergy Verified 11/18/17 13:09 Home Medications: Home Medications Atorvastatin* [Lipitor 40 MG*] 40 mg PO DAILY 11/18/17 [History Confirmed ] DOXYcycline CAP(*) [DOXYcycline 100MG CAP(*)] 100 mg PO BID 11/18/17 [History Confirmed 11/18/17] Fexofenadine HCl 180 mg PO DAILY 11/18/17 [History Confirmed 11/18/17] Ticagrelor* [Brilinta 90 MG*] 11/18/17 [History] busPIRone TAB* 11/18/17 [History] PMH/Surg Hx/FS Hx/Imm Hx Endocrine History: Dyslipidemia Cardiovascular History: Cardiac Disease Respiratory History: Asthma Psychological History: Anxiety, Depression Other History Of: Negative For: Anticoagulant Therapy - Surgical History Surgical History: Yes Surgery Procedure, Year, and Place: tubal ligation-[facility]. breast reduction-AGE 16 - [facility]. cyst removed from thumb-[facility] [place]. cholecystectomy-[facility] - Family History Known Family History: Positive: Hypertension, Diabetes - Social History Occupation: Works From/At Home Lives: With Family Alcohol Use: Occasionally Substance Use Type: Prescribed Smoking Status (MU): Light Every Day Tobacco Smoker Type: Cigarettes Amount Used/How Often: 1/4-1/2 ppd X 20 YEARS Have You Smoked in the Last Year: Yes - Immunization History Most Recent Influenza Vaccination: unknown Most Recent Tetanus Shot: unknown Most Recent Pneumonia Vaccination: never Review of Systems Constitutional: Negative Skin: Bruising Respiratory: Negative Cardiovascular: Negative Motor: Negative Neurovascular: Negative Musculoskeletal: Negative Is Patient Immunocompromised?: No All Other Systems Reviewed And Are Negative: Yes Physical Exam Triage Information Reviewed: Yes Appearance: Well-Appearing, No Pain Distress, Obese Vital Signs: Initial Vital Signs Temp 98 F 11/18/17 13:03 Pulse 90 11/18/17 13:03 Resp 18 11/18/17 13:03 BP 120/80 11/18/17 13:03 Pulse Ox 100 11/18/17 13:03 Vital Signs Reviewed: Yes Neck: Positive: Supple, Nontender Respiratory: Positive: Lungs clear, Normal breath sounds, No respiratory distress Cardiovascular: Positive: RRR, No Murmur, Pulses Normal, Brisk Capillary Refill Musculoskeletal: Positive: Strength Intact, ROM Intact, No Edema, Other: - Mid calf circumference left=40.5 cm, right 40 cm. Bilateral calves supple and non- tender. Neurological: Positive: Alert, Other: - sensation intact distally Skin: Positive: Other - There is a palpable hematoma to her distal inner left thigh with significant bruising to the inner posterior thigh as well as left lower leg. Lower Extremity Course/Dx - Course Course Of Treatment: 46-year-old female with tenderness and bruising to her left leg after a slip and fall in her backyard one week ago. She is on Brilinta for ACS. Exam remarkable for hematoma with sigficant bruising to left leg. Calf supple and non-tender. No lower extremity edema. Recommend conservative treatment and follow up with PCP if no improvement. - Differential Dx/Diagnosis Provider Diagnoses: Hematoma of upper left leg Discharge - Sign-Out/Discharge Documenting (check all that apply): Patient Departure All imaging exams completed and their final reports reviewed: No Studies - Discharge Plan Condition: Stable Disposition: HOME Patient Education Materials: Hematoma (ED) Referrals: Enmanuel Brar MD [Primary Care Provider] - 7 Days (If no improvement in symptoms.) Additional Instructions: You have a hematoma (collection of blood in the soft tissues) of your leg with significant bruising which is related to the blood thinner you are taking. This is not dangerous but will take several weeks to resolve. Use acetaminophen (Tylenol) according to directions as needed for pain. You may apply ice, heat, or alternate ice then heat for 15-20 minutes 3-4 times a day to help with the discomfort. Follow up with your primary care provider in 7 days if no improvement in symptoms. Seek immediate medical attention if you develop fever greater than 100.5 F, have worsening of pain, redness that spreads, you have numbness or tingling in the lower leg or foot, increased swelling, or any worsening of symptoms. - Billing Disposition and Condition Condition: STABLE Disposition: Home - Attestation Statements Provider Attestation: Per institutional requirements, I have reviewed the chart, however, I was not consulted specifically or made aware of this patient by the midlevel provider. I did not personally evaluate, interact with , or disposition this patient.
== END 2017-11-18 14:48 | disposition home or self-care (01) ==
LOC: UCEAST 12:23
DX: S70.12XA Contusion of left thigh, initial encounter (principal); W01.0XXA Fall on same level from slipping, tripping and stumbling without subsequent striking against object, initial encounter; Y93.9 Activity, unspecified; Y92.096 Garden or yard of other non-institutional residence as the place of occurrence of the external cause; E78.5 Hyperlipidemia, unspecified; F41.9 Anxiety disorder, unspecified; Z79.02 Long term (current) use of antithrombotics/antiplatelets; Z82.49 Family history of ischemic heart disease and other diseases of the circulatory system; Z83.3 Family history of diabetes mellitus; F17.210 Nicotine dependence, cigarettes, uncomplicated
CPT/HCPCS: 99211; G0463

== ENCOUNTER 2018-04-09 06:29 | Inpatient (IN) | payer OTHER ==
--- NOTE | 2018-04-09 07:27 | ED ---
HPI Chest Pain - HPI Summary HPI Summary: This patient is a 47 year old female presenting to [facility] with a chief complaint of chest pain that began at 0615, when it woke her up. She rates the pain as 8/ 10 in severity and describes it as a vice in her chest. She states the pain was like a band that was around her whole upper body and is unsure if it is indigestion or CP. 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 She is not having abd pain. She states she has severe anxiety. No history of [place] or DM. She does smoke PPD, has HTN, CAD, and lymes. Pt has stents in place and sees Dr. Oscar. - History of Current Complaint Chief Complaint: EDChestPainROMI Time Seen by Provider: 04/09/18 07:17 Hx Obtained From: Patient Hx Last Menstrual Period: 10/22/17 Onset/Duration: Started Hours Ago, Still Present Time of Onset: 06:15 Timing: Constant Initial Severity: Moderate Current Severity: Moderate Pain Intensity: 8 Pain Scale Used: 0-10 Numeric Chest Pain Location: Diffuse Chest Pain Radiates: Yes Chest Pain Radiates To:: Other Character: Other: Associated Signs and Symptoms: Positive: Negative - abd pain, Chest Pain - Allergy/Home Medications Allergies/Adverse Reactions: Allergies Allergy/AdvReac Type Severity Reaction Status Date / Time No Known Allergies Allergy Verified 04/09/18 06:34 Home Medications: Home Medications Aspirin 81 mg CHEW TAB* 1 tab PO DAILY 04/09/18 [History Confirmed 04/09/18] Cholecalciferol TAB* [Vitamin D TAB*] 2,000 units PO DAILY 04/09/18 [History Confirmed 04/09/18] Fluticasone HFA 110 mcg(NF) [Flovent HFA 110 mcg(NF)] 2 puff INH BID 04/09/18 [ History Confirmed 04/09/18] Gabapentin CAP(*) [Neurontin 300 CAP(*)] 300 mg PO BID 04/09/18 [History Confirmed 04/09/18] Pantoprazole TAB * [Protonix TAB*] 40 mg PO DAILY 04/09/18 [History Confirmed ] busPIRone TAB* [Buspar TAB*] 15 mg PO BID 04/09/18 [History Confirmed 04/09/18] PMH/Surg Hx/FS Hx/Imm Hx Endocrine/Hematology History: Denies: Hx Anticoagulant Therapy, Hx Diabetes, Hx Thyroid Disease Cardiovascular History: Reports: Hx Angina - 12/2013- STATES WAS ANXIETY RELATED Denies: Hx Coronary Artery Disease, Hx Hypercholesterolemia, Hx Hypertension , Hx Myocardial Infarction, Hx Pacemaker/ICD, Hx Valvular Heart Disease Respiratory History: Reports: Hx Asthma - PRN PROAIR, Other Respiratory Problems /Disorders - VOCAL CORD POLYPS Denies: Hx Chronic Obstructive Pulmonary Disease (COPD) GI History: Reports: Hx Gastroesophageal Reflux Disease - ROUTINE MEDICATION FOR Denies: Hx Ulcer History: Denies: Hx Renal Disease Sensory History: Reports: Hx Contacts or Glasses - GLASSES Denies: Hx Hearing Aid Opthamlomology History: Reports: Hx Contacts or Glasses - GLASSES Neurological History: Denies: Hx Dementia, Hx Seizures Psychiatric History: Reports: Hx Anxiety - MEDICATION FOR, Hx Depression - MEDICATION FOR Denies: Hx Substance Abuse - Surgical History Surgery Procedure, Year, and Place[place] [place] 16 [place] [facility] [place]x Anesthesia Reactions: Yes - NAUSEA AND VOMITING Infectious Disease History: No Infectious Disease History: Denies: Hx Clostridium Difficile, Hx Hepatitis, Hx Human Immunodeficiency Virus (HIV), History Other Infectious Disease, Traveled Outside the [place] in Last 30 Days - Family History Known Family History: Positive: Hypertension, Diabetes - Social History Alcohol Use: Occasionally Hx Substance Use: Yes Substance Use Type: Reports: Prescribed Hx Tobacco Use: Yes Smoking Status (MU): Light Every Day Tobacco Smoker Type: Cigarettes Amount Used/How Often: 1/4-1/2 ppd X 20 YEARS Have You Smoked in the Last Year: Yes Review of Systems Negative: Fever Positive: Chest Pain Negative: Abdominal Pain All Other Systems Reviewed And Are Negative: Yes Physical Exam - Summary Physical Exam Summary: GENERAL: Patient is a well-developed and nourished F who is lying comfortable in the stretcher. Patient is not in any acute respiratory distress. HEAD AND FACE: Normocephalic EYES: PERRLA, EOMI x 2. EARS: Hearing grossly intact. MOUTH: Oropharynx within normal limits. NECK: Supple, trachea is midline, no adenopathy, no JVD, no carotid bruit. CHEST: Symmetric, no tenderness at palpation LUNGS: Clear to auscultation bilaterally. No wheezing or crackles. CVS: Regular rate and rhythm, S1 and S2 present, no murmurs or gallops appreciated. ABDOMEN: Soft, non-tender. Bowel sounds are normal. No abdominal abnormal pulsations. EXTREMITIES: Full ROM in all major joints, no edema, no cyanosis or clubbing. NEURO: Alert and oriented x 3. No acute neurological deficits. Speech is normal and follows commands. SKIN: Dry and warm Triage Information Reviewed: Yes Vital Signs On Initial Exam: Initial Vitals Temp Pulse Resp BP Pulse Ox 97.2 F 78 16 141/91 97 04/09/18 06:32 04/09/18 06:32 04/09/18 06:32 04/09/18 06:32 04/09/18 06:32 Vital Signs Reviewed: Yes Diagnostics - Vital Signs Vital Signs Temp Pulse Resp BP Pulse Ox 04/09/18 06:32 97.2 F 78 16 141/91 97 - Laboratory Result Diagrams: 04/09/18 07:45 04/09/18 07:45 Lab Statement: Any lab studies that have been ordered have been reviewed, and results considered in the medical decision making process. - Radiology cxr Radiology Interpretation Completed By: Radiologist Summary of Radiographic Findings: no active cardiopulmonary disease. ED physician has reviewed this report. - EKG 0632 Cardiac Rate: NL EKG Rhythm: Sinus Rhythm - at 70 Bpm Summary of EKG Findings: nml axis Chest Pain Course/Dx - Course Assessment/Plan: This patient is a 47 year old female presenting to [facility] with a chief complaint of chest pain that began at 0615, when it woke her up. CXR reveals, per radiology, no active cardiopulmonary disease. EKG shows NSR. Bloodwork showed an initial trop on 0.02. She was given NTG and ASA in the ED course .I discussed the case with the hospitalist, Dr Mccullough and he has accepted the patient for admission. I discussed results with patient. The patient agrees with this plan. - Diagnoses Provider Diagnoses: Chest pain - Provider Notifications Discussed Care Of Patient With: Cristian Mccullough Time Discussed With Above Provider: 09:39 Instructed by Provider To: Admit As Inpatient Discharge - Sign-Out/Discharge Documenting (check all that apply): Patient Departure - admitted Patient Received Moderate/Deep Sedation with Procedure: No - Discharge Plan Condition: Fair Disposition: ADMITTED TO [facility] - Billing Disposition and Condition Condition: FAIR Disposition: Admitted to [facility] - Attestation Statements Document Initiated by Miguelinaibradha: Yes Documenting Scribe: Breezy Fraser Provider For Whom Miguelinaibradha is Documenting (Include Credential): Callie Mccain MD Scribe Attestation: IBreezy , scribed for Callie Mccain MD on 04/10/18 at 1721. Scribe Documentation Reviewed: Yes Provider Attestation: The documentation as recorded by the Breezy lopez accurately reflects the service I personally performed and the decisions made by me, Callie Mccain MD Status of Scribe Document: Viewed
[2018-04-09 07:53] LABS: ABS Basophils 0.1 10^3/ul (0-0.2); ABS Eosinophils 0.3 10^3/ul (0-0.6); ABS Lymphocytes 1.3 10^3/ul (1.0-4.8); ABS Monocytes 0.4 10^3/ul (0-0.8); ABS Neutrophils 4.8 10^3/ul (1.5-7.7); ABS Nucleated RBC 0 10^3/ul; Eosinophil % 3.9 %; Hematocrit 38 % (35-47); Hemoglobin 12.8 g/dl (12.0-16.0); Lymphocyte % 19.1 %; Mean Corpuscular HGB Conc 34 g/dl (31-36); Mean Corpuscular Hemoglobin 28 pg (27-31); Mean Corpuscular Volume 84 fL (80-97); Mean Platelet Volume 7.3 fL (7.4-10.4); Nucleated Red Blood Cells % 0; Platelet Count 291 10^3/ul (150-450); Red Blood Count 4.57 10^6/ul (4.00-5.40); Red Cell Distribution Width 16 % (10.5-15); White Blood Count 6.9 10^3/ul (3.5-10.8)
[2018-04-09 08:01] LABS: Activated Partial Thrombo Time 26.7 seconds (26.0-36.3); INR 0.88 (0.77-1.02)
[2018-04-09 08:10] LABS: ALT 12 U/L (7-52); AST 12 U/L (13-39); Albumin 3.9 g/dL (3.2-5.2); Albumin/Globulin Ratio 1.3 (1-3); Alkaline Phosphatase 101 U/L (34-104); Anion Gap 7 mmol/L (2-11); BUN/Creatinine Ratio 13.3 (8-20); Blood Urea Nitrogen 10 mg/dL (6-24); CO2 Carbon Dioxide 23 mmol/L (22-32); Calcium 9.2 mg/dL (8.6-10.3); Chloride 107 mmol/L (101-111); EGFR African American 100.2 (>60); EGFR Non-African American 82.8 (>60); Globulin 2.9 g/dL (2-4); Glucose 105 mg/dL (70-100); Potassium 3.7 mmol/L (3.5-5.0); Sodium 137 mmol/L (135-145); Total Protein 6.8 g/dL (6.4-8.9)
[2018-04-09 08:12] LABS: Troponin I 0.02 ng/mL (<0.04)
[2018-04-09 08:18] LABS: HCG Pregnancy < 0.60 mIU/mL
[2018-04-09] MEDS ORDERED: Nitroglycerin TAB 0.4 MG* 0.4 MG TAB SL ONE (09:08)
[2018-04-09] MEDS ORDERED: Aspirin 81 mg CHEW TAB* 81 MG TAB.CHEW PO ONE (09:08)
[2018-04-09] MEDS ORDERED: Atorvastatin* 80 MG TAB PO ONE (10:01)
[2018-04-09 10:03] LABS: Cholesterol 122 mg/dL; HDL Cholesterol 30.4 mg/dL; LDL Cholesterol 64 mg/dL; Triglycerides 139 mg/dL
[2018-04-09] MEDS ORDERED: Albuterol HFA INHALER* 8 gm MDI INH PRN (11:33)
[2018-04-09] MEDS ORDERED: Ticagrelor* 90 MG TAB PO ONE (11:40)
[2018-04-09] MEDS: Pantoprazole TAB * 40 MG TAB PO SCH (12:43)
[2018-04-09] MEDS: ALPRAZolam TAB* 0.5 MG PO PRN ×2 (12:43→21:46)
[2018-04-09] MEDS: FLUoxetine CAP* 20 MG PO SCH (12:43)
[2018-04-09] MEDS: Metoprolol Tartrate TAB* 25 MG PO SCH ×2 (12:43→18:10)
[2018-04-09] MEDS: Nicotine PATCH 14 MG/24 HR* PATCH TRANSDERM SCH (13:32)
[2018-04-09] MEDS: Heparin VIAL(*) 5000 UNITS/ML VIAL (FIVE THOUSAND) SUBCUT SCH ×2 (13:33→21:47)
[2018-04-09] MEDS: busPIRone TAB* 15 MG PO SCH ×2 (13:33→21:46)
[2018-04-09] MEDS ORDERED: Al Hydrox/Mg Hydrox/Simet LIQ* 30 ML UDC PO ONE ×2 (15:41→15:43)
--- NOTE | 2018-04-09 15:46 | HP ---
HISTORY AND PHYSICAL: DATE OF ADMISSION: 04/09/18 ADMITTING PROVIDER: Cristian Mccullough MD PRIMARY CARE PROVIDER: Dr. Brar. OUTPATIENT FARM RANCHER: Dr. Sandy CHIEF COMPLAINT: Squeezing chest pressure like a vise, 9/10, shortness of breath. HISTORY OF PRESENT ILLNESS: Inga Casillas is a 47-year-old female with past medical history of multivessel coronary artery disease, status post stents to LAD, OM1, and OM2 in November 2016; current and longtime smoker; severe anxiety, on 3 anxiolytics; obesity. She was in her usual state of health when she woke up with severe chest tightness like a vise squeezing her entire chest, 9/10 intensity, along with shortness of breath. She had some pain radiating up to her neck and then she took a baby aspirin with some relief and she was hesitating whether or not to come in for medical evaluation. While sitting in her car outside the hospital deciding whether or not to come inside, she developed some pain radiating down her left arm. She has had intial negative troponin at 7:45 of 0.02. She got 2 more baby aspirin and was referred to hospitalist service for ACS rule out. Her EKG showed some diffuse ST depressions anterolaterally, improved from last EKGs in September 2016 when she also presented with chest pain. She says that she stopped smoking for about a month after her stents were put in and they were actually considering doing a CABG at that time. It is not clear why they did not do that. 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 She stopped her Brilinta at that time. She does not work out, sometimes gets short of breath and wheezy with walking , infrequently uses albuterol nebs for asthma. PAST MEDICAL HISTORY: 1. Multivessel coronary artery disease status post stents to LAD, OM1, OM2 in November 2016 with concern for potential need for CABG prior to this intervention 2. Current and longtime smoker, one-half pack per day currently, approximately 30-pack years. 3. Hyperlipidemia. 4. Obesity, BMI of 33. 5. GERD 6. asthma (?vs COPD) 7. anxiety 8. Vitamin D deficiency Of note she denies Hx of hypertension and is on no meds for that. PAST SURGICAL HISTORY: 1. Cholecystectomy. 2. Breast reduction. 3. Tubal ligation. MEDICATIONS: Include: 1. Aspirin 81 mg daily. 2. Protonix 40 mg daily. 3. Cholecalciferol 2000 units p.o. daily. 4. Flovent 2 puffs inhaled b.i.d. 5. Fexofenadine HCL at 100 mg p.o. daily. 6. Atorvastatin 40 mg daily. 7. Albuterol 2 puffs inhaled t.i.d. p.r.n. 8. Xanax 0.5 mg p.o. t.i.d. p.r.n. 9. Prozac 60 mg p.o. daily. 10. Gabapentin 300 mg p.o. b.i.d. 11. Buspirone 15mg p.o b.i.d. FAMILY HISTORY: Her father age 77 of prostate cancer. He had a CABG, diabetes, hypertension, hyperlipidemia. Her mother is alive in her 60s versus 70s, has glucose intolerance. SOCIAL HISTORY: Current half-pack per day smoker, approximately 25 to 30-pack years. Other than occasional alcohol use, denies drug use. Medical surrogate is her longtime significant other, Ted Jacome. She desires to be a full code. REVIEW OF SYSTEMS: A complete 14-point review of systems is negative except as per HPI. She denies fevers, chills. She currently is not expressing gassy sensation, is having bowel movements. Denies current chest pain. PHYSICAL EXAMINATION GENERAL APPEARANCE: No acute distress. VITAL SIGNS: Temperature 97.2, heart rate 75, respiratory rate 16 to 23, satting 94% to 98% on room air, blood pressure 141/91. HEENT: Normocephalic, atraumatic. Pupils are equal, round, and reactive to light. Extraocular motions are intact. No scleral icterus. LUNGS: Clear to auscultation bilaterally with no wheezing, rales, or rhonchi. CARDIOVASCULAR: Regular rate and rhythm. No murmurs, rubs, or gallops. ABDOMEN: Soft, nontender, obese. EXTREMITIES: Warm and well perfused. No peripheral edema. NEUROLOGIC: Moving all extremities. Cranial nerves II through XII intact. SKIN: No lesions or rashes. There are tattoos. DIAGNOSTIC STUDIES/LAB DATA: White count 6.9, hemoglobin 12.8, hematocrit 38, platelets 291. INR 0.88. Sodium 137, potassium 3.7, chloride 107, carbon dioxide 23, BUN 10, creatinine 0.75, A1c 5.5, glucose 105, lactic acid 1.0, magnesium 2.0. Total bili 0.5, AST 12, ALT 12, alk phos 101. Troponin 0.02, one only so far. BNP 68. Albumin 3.9. LDL 64, HDL 30. Imaging: None. EKG demonstrates normal sinus rhythm; ST depressions most prominent in V3 to V6 , normal axis, T wave inversion in V1, QTc is 439. ASSESSMENT AND PLAN: Inga Casillas is a 47-year-old female with past medical history of multivessel coronary artery disease, status post stents to left anterior descending, obtuse marginal 1, obtuse marginal 2 in November 2016, stopped Brilinta 4 months ago, and current smoker and obese with family history of coronary artery disease, presenting with acute vise-like chest pain, 9/10, waking her from sleep, largely improved after initial 81mg aspirin. The pain also radiated to her neck and down her left arm. Currently, she only has some feelings of indigestion. She has been admitted for ACS rule out with a concerning story and history. Trend troponins every 3 hours, repeat EKG now. She is chest pain free, though still with some indigestion. I am going to give her Lipitor 80mg now, metoprolol tartrate 25 q.6 hours, put her on telemetry. I am going to load her with Brilinta then continue. She actually states that she would greatly prefer to have any cardiac procedures done at [facility] in [place], [place] given that is where her other stents/LHC were done. We will have to cross that bridge, if it comes to that. Potentially she could get a stress test there if she is ruled out for ACS. For her severe anxiety, continue her Prozac, Xanax p.r.n., and BuSpar. Continue Protonix for her GERD. We will continue aspirin 81 mg daily. Continue Gabapentin. I will make her n.p.o. now. She is a full code. Medical surrogate is her significant other, Ted Jacome. [id number]/CPS #: [id number] [facility]
[2018-04-09] MEDS: Acetaminophen TAB* 325 MG PO PRN (16:45)
[2018-04-09] MEDS: Mometasone 220 MCG MDI INH SCH (20:03)
[2018-04-09] MEDS: Gabapentin CAP(*) 300 MG PO SCH (21:46)
[2018-04-09] MEDS: Nicotine Patch Removal NOTE FOLLOW UP SCH (21:48)
[2018-04-10] MEDS: Metoprolol Tartrate TAB* 25 MG PO SCH ×3 (00:38→22:14)
[2018-04-10] MEDS: Heparin VIAL(*) 5000 UNITS/ML VIAL (FIVE THOUSAND) SUBCUT SCH ×3 (05:42→22:15)
[2018-04-10] MEDS: Pantoprazole TAB * 40 MG TAB PO SCH (08:21)
[2018-04-10] MEDS: FLUoxetine CAP* 20 MG PO SCH (08:21)
[2018-04-10] MEDS: Cetirizine* 10 MG TAB PO SCH (08:21)
[2018-04-10] MEDS: Cholecalciferol TAB* 1000 UNITS PO SCH (08:21)
[2018-04-10] MEDS: busPIRone TAB* 15 MG PO SCH ×2 (08:21→22:14)
[2018-04-10] MEDS: Gabapentin CAP(*) 300 MG PO SCH ×2 (08:21→22:13)
[2018-04-10] MEDS: Nicotine PATCH 14 MG/24 HR* PATCH TRANSDERM SCH (08:21)
[2018-04-10] MEDS: Aspirin 81 mg CHEW TAB* 81 MG TAB.CHEW PO SCH (08:22)
[2018-04-10] MEDS: ALPRAZolam TAB* 0.5 MG PO PRN ×2 (08:30→17:41)
[2018-04-10] MEDS ORDERED: Regadenoson* 0.4 MG/5 ML SYRINGE ONE (09:46)
[2018-04-10] MEDS: Ticagrelor* 90 MG TAB PO SCH ×2 (12:14→22:14)
[2018-04-10] MEDS: Acetaminophen TAB* 325 MG PO PRN (12:14)
--- NOTE | 2018-04-10 13:01 | ECHO ---
Patient: REYES MCKNIGHT [facility] Rec#: [id number] : 1970 Date: 04/10/2018 Age: 47y Height: 165 cm / 65.0 in Weight: 109 kg / 240.2 lbs Sex: F BSA: 2.14 Room#: 444 Admit Date#: 04/09/2018 Type: Inpatient Referring: Cristian Mccullough Reading: Rodger Dover MD Oil Laboratory Analyst: Amanda Disla RDCS CC: Enmanuel Brar MD CC: Marlon Sandy Transthoracic Echocardiogram Indication: CP//SOB BP: 111/64 HR: 71 Rhythm: NSR Findings History: Multi vessle CAD,s/p PCI,smoker,obesity,HLD. Technical Comments: The study is technically limited due to the patient's history of COPD. Completed at 1145. Left Ventricle: The left ventricular chamber size is normal. Posterior wall hypertrophy is observed. Global left ventricular wall motion and contractility are within normal limits. There is normal left ventricular systolic function. The estimated ejection fraction is 55-60%. Abnormal left ventricular diastolic function is observed. Left Atrium: The left atrial chamber size is normal. Right Ventricle: The right ventricular cavity size is normal. The right ventricular global systolic function is normal. Right Atrium: The right atrial cavity size is normal. Aortic Valve: The aortic valve is trileaflet. There is no evidence of aortic valve thickening. There is no evidence of aortic regurgitation. There is no evidence of aortic stenosis. Mitral Valve: The mitral valve leaflets are mildly thickened. There is no evidence of mitral regurgitation. There is no evidence of mitral stenosis. Tricuspid Valve: The tricuspid valve leaflets are normal. There is no evidence of tricuspid valve regurgitation. Unable to estimate the right ventricular systolic pressure. There is no tricuspid stenosis. Pulmonic Valve: The pulmonic valve appears normal. There is no evidence of pulmonic regurgitation. There is no pulmonic stenosis. Pericardium: A pericardial fat pad is visualized. Aorta: The ascending aorta is not well visualized. There is no dilatation of the aortic arch. There is mild dilatation of the aortic root. Pulmonary Artery: The main pulmonary artery appears normal. Venous: The inferior vena cava appears normal in size. Summary: There was not any prior study for comparison. Conclusions Global left ventricular wall motion and contractility are within normal limits. There is normal left ventricular systolic function. The estimated ejection fraction is 55-60%. The right ventricular global systolic function is normal. There is no evidence of aortic stenosis. There is no evidence of mitral regurgitation. There is no evidence of tricuspid valve regurgitation. Unable to estimate the right ventricular systolic pressure. Measurements Name Value Normal Range RVIDd (AP) 2D 3 cm (0.9 - 2.6) RVDdMajor (2D) 2.7 cm (2.2 - 4.4) RAd ISD 4CH 3.6 cm (3.4 - 4.9) RA (A4C)W 3 cm (2.9 - 4.6) IVSd (2D) 0.8 cm (0.6 - 1) LVPWd (2D) 1.1 cm (0.6 - 1) LVIDd (2D) 5.2 cm (3.6 - 5.4) LVIDs (2D) 3.6 cm - LV FS (2D) 30 % (25 - 45) Aortic Annulus 2.6 cm (1.4 - 2.6) Ao root diameter (2D) 3.9 cm (2.1 - 3.5) Aortic arch 2.4 cm (1.8 - 3.4) Descending Ao 0.7 cm - LA dimension (AP) 2D 3 cm (2.3 - 3.8) LAd ISD 4CH 5.1 cm (2.9 - 5.3) LA ISD 4CH W 3.4 cm (2.5 - 4.5) Name Value Normal Range MV E-wave Vmax 0.8 m/sec - MV deceleration time 236 msec - MV A-wave Vmax 0.7 m/sec - MV E:A ratio 1.2 ratio - LV lateral e' Vmax 0.08 m/sec - Name Value Normal Range AV Vmax 1.2 m/sec - AV VTI 26.4 cm - AV peak gradient 5 mmHg - AV mean gradient 3 mmHg - LVOT Vmax 0.9 m/sec - LVOT VTI 21.1 cm - LVOT peak gradient 4 mmHg - LVOT mean gradient 2 mmHg - Name Value Normal Range PV Vmax 0.6 m/sec - PV peak gradient 2 mmHg -
[2018-04-10] MEDS ORDERED: diPHENhydraMINE PO* 25 MG PO PRN (13:26)
[2018-04-10] MEDS ORDERED: Diazepam TAB(*) 5 MG PO PRN (13:26)
[2018-04-10] MEDS ORDERED: NS 0.9% 1000 ML** 1,000 ML IV SCH (13:30)
[2018-04-10] MEDS ORDERED: Heparin(*) 1000 UNIT/ML 10 ML VIAL CATH LAB IV ONE (14:30)
[2018-04-10] MEDS ORDERED: nitroGLYCERIN DRIP* 25,000 MCG/250 ML BTL ONE (14:30)
[2018-04-10] MEDS ORDERED: Midazolam* 1 MG/ML 10 ML VIAL (10 MG) ONE (14:30)
[2018-04-10] MEDS ORDERED: Lidocaine 1% INJ* 10 MG/ML 30 ML SDV ONE (14:30)
[2018-04-10] MEDS ORDERED: VERAPAMIL 2.5 MG/ML 2 ML VIAL ** 5 mg/2 ml ONE (14:30)
[2018-04-10] MEDS ORDERED: fentaNYL* 50 MCG/ML 2 ML VIAL (100 MCG VIAL) ONE (14:30)
[2018-04-10] MEDS ORDERED: Iohexol 350 (CONTRAST) 200 ML MDV IV ONE (14:30)
[2018-04-10] MEDS ORDERED: Heparin 2 UNITS/ML IVPREMIX* 2,000 ML IV ONE (14:30)
--- NOTE | 2018-04-10 14:57 | CONS ---
CC: Dr. Enmanuel Brar; Dr. Troy Sandy * CARDIOLOGY CONSULTATION: DATE OF CONSULT: 04/10/18 INDICATION FOR CONSULTATION: Chest pain, coronary artery disease, abnormal stress test. HISTORY OF PRESENT ILLNESS: Patient is a 47-year-old female with a history of coronary artery disease, history of multiple-vessel stenting in November 2016. At that time, she received a stent to her LAD, OM1, and OM2. She has a history of smoking. Patient came to the emergency room because of severe chest pain yesterday. She described it as a crushing chest pain, a vise-like sensation on her chest. She rated it as a 9/10. Ultimately, she came to the emergency room. On arrival to the emergency room, her first troponin was unremarkable. EKG showed no obvious EKG changes. Patient was followed overnight. Her troponins went to a peak of 0.05. She underwent a chemical nuclear stress test earlier today, which showed a large area of ischemia to her anterolateral wall. Her ejection fraction was 43%. Her TID was normal. In speaking with her now, patient has been pain-free since yesterday. There was some discussion about doing bypass surgery at the time of her cardiac catheterization, but ultimately the decision was to have multivessel stenting. She does not have any history of diabetes. PAST MEDICAL HISTORY: Significant for coronary artery disease, long time smoking, hypertension, hyperlipidemia, obesity. PAST SURGICAL HISTORY: Cholecystectomy, breast reduction surgery, tubal ligation. OUTPATIENT MEDICATIONS: 1. Aspirin 81 mg a day. 2. Protonix 40 mg a day. 3. Calciferol 2000 units daily. 4. Flovent inhaler. 5. Fexofenadine 100 mg a day. 6. Atorvastatin 40 mg a day. 7. Xanax as needed. 8. Prozac 60 mg a day. 9. Gabapentin 300 mg b.i.d. 10. Buspirone. FAMILY HISTORY: Father of prostate cancer. He had a history of coronary bypass surgery and hypertension. Mother is alive and well with glucose intolerance. SOCIAL HISTORY: She smokes half a pack of cigarettes a day. She has rare alcohol intake. She lives with her significant other. REVIEW OF SYSTEMS: Negative for fevers and chills. Negative for changes in bowel or bladder habits. Negative for changes in weight. Other 12-point review is unremarkable. PHYSICAL EXAM: Height is 5 feet 5 inches, weight 242 pounds. Temperature 97.5 , heart rate is 60, blood pressure 107/62, respiratory rate is 20, oxygen saturation 97% on room air. Sclerae anicteric. Oropharynx is pink without erythema. Carotids are 2+ without bruits. JVD is normal. Thyroid is normal. Cardiac Exam: S1, S2 without any murmurs, rubs, or gallops. Lungs are clear to auscultation bilaterally. There is no dullness to percussion. Abdomen is obese , soft, nontender, nondistended with normoactive bowel sounds. Extremities show no edema. She has 2+ pulses throughout. Patient is awake, alert, and oriented. She moves all 4 extremities equally. DIAGNOSTIC STUDIES/LAB DATA: Chemistry is within normal limits. BUN 10, creatinine 0.75. Again, peak troponin 0.05. BNP is normal. Total cholesterol 122, LDL cholesterol of 64. AST and ALT are normal. EKG shows normal sinus rhythm with normal axis and intervals. IMPRESSION: This is a 47-year-old female with a history of coronary artery disease, history of multivessel stenting back in November 2016. She is admitted to the hospital with typical anginal-type symptoms at rest with elevated troponin levels. Her stress test shows a large area of ischemia to her anterolateral wall. For now, my recommendation is the patient undergo cardiac catheterization. The risks and benefits of this are described in great detail. Patient is willing to proceed. Patient was started on aspirin and Brilinta yesterday; these will be continued. Further recommendations pending results of her cardiac catheterization. [id number]/[facility] #: [id number] VALENTINO
[2018-04-10] MEDS ORDERED: Atorvastatin* 80 MG TAB PO SCH (17:00)
[2018-04-10] MEDS ORDERED: traMADol TAB* 50 MG PO ONE (17:47)
--- NOTE | 2018-04-10 19:21 | PN ---
Subjective Date of Service: 04/10/18 Interval History: chest pain free overnight went to [facility] today. troponins peaked at 0.05. OM1 was totally occluded and the LAD was 50% with a jailed diagnonal. Plan to observe overnight then refer to Dr. Navas at [facility] in [facility] of for further intervention BENDER. Objective Active Medications: Acetaminophen (Tylenol Tab*) 650 mg PO Q6H PRN PRN Reason: PAIN Last Admin: 04/10/18 12:14 Dose: 650 mg Albuterol (Ventolin Hfa Inhaler*) 2 puff INH TID PRN PRN Reason: SOB/WHEEZING Alprazolam (Xanax Tab*) 0.5 mg PO TID PRN PRN Reason: ANXIETY Last Admin: 04/10/18 17:41 Dose: 0.5 mg Aspirin (Aspirin 81 Mg Chew Tab*) 81 mg PO DAILY [facility] Last Admin: 04/10/18 08:22 Dose: 81 mg Atorvastatin Calcium (Lipitor*) 80 mg PO 1700 [facility] Last Admin: 04/10/18 17:35 Dose: 80 mg Buspirone HCl (Buspar Tab *) 15 mg PO BID [facility] Last Admin: 04/10/18 08:21 Dose: 15 mg Cetirizine HCl (Zyrtec*) 10 mg PO DAILY [facility]; Protocol Last Admin: 04/10/18 08:21 Dose: 10 mg Cholecalciferol (Vitamin D Tab*) 2,000 units PO DAILY [facility] Last Admin: 04/10/18 08:21 Dose: 2,000 units Diazepam (Valium Tab(*)) 5 mg PO ONCE PRN PRN Reason: 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 Diphenhydramine HCl (Benadryl Po*) 25 mg PO ONCE PRN PRN Reason: 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 Fluoxetine HCl (Prozac Cap*) 60 mg PO QAM [facility] Last Admin: 04/10/18 08:21 Dose: 60 mg Gabapentin (Neurontin Cap(*)) 300 mg PO BID [facility] Last Admin: 04/10/18 08:21 Dose: 300 mg Heparin Sodium (Porcine) (Heparin Vial(*)) 5,000 units SUBCUT Q8HR [facility] Last Admin: 04/10/18 13:40 Dose: Not Given Sodium Chloride (Ns 0.9% 1000 Ml) 1,000 mls @ 100 mls/hr IV .per rate [facility] Stop: 04/10/18 23:59 Last Admin: 04/10/18 13:38 Dose: 100 mls/hr Metoprolol Tartrate (Lopressor Tab*) 25 mg PO BID [facility] Last Admin: 04/10/18 08:22 Dose: Not Given Mometasone Furoate (Asmanex 220 Mcg Mdi *) 2 puff INH BEDTIME [facility] Last Admin: 04/09/18 20:03 Dose: 2 puff Nicotine (Nicotine Patch 14 Mg/24 Hr*) 1 patch TRANSDERM DAILY [facility] Last Admin: 04/10/18 08:21 Dose: 1 patch Pantoprazole Sodium (Protonix Tab*) 40 mg PO DAILY [facility] Last Admin: 04/10/18 08:21 Dose: 40 mg Pharmacy Profile Note (Nicotine Patch Removal Note*) 1 note FOLLOW UP 2100 [facility] Last Admin: 04/09/18 21:48 Dose: 1 note Ticagrelor (Brilinta*) 90 mg PO BID [facility] Last Admin: 04/10/18 12:14 Dose: 90 mg Vital Signs - 8 hr 04/10/18 04/10/18 04/10/18 11:41 15:53 15:54 Temperature 97.5 F Pulse Rate 59 61 62 Respiratory 20 11 13 Rate Blood Pressure 107/62 141/83 (mmHg) O2 Sat by Pulse 97 96 96 Oximetry 04/10/18 04/10/18 04/10/18 16:00 16:09 16:24 Temperature Pulse Rate 52 59 62 Respiratory 19 18 16 Rate Blood Pressure 120/92 132/82 (mmHg) O2 Sat by Pulse 97 96 97 Oximetry 04/10/18 04/10/18 04/10/18 16:39 16:54 17:00 Temperature Pulse Rate 61 58 55 Respiratory 17 16 18 Rate Blood Pressure 125/77 107/80 (mmHg) O2 Sat by Pulse 96 96 95 Oximetry 04/10/18 04/10/18 04/10/18 17:09 17:41 18:09 Temperature 97.4 F Pulse Rate 56 68 Respiratory 14 18 16 Rate Blood Pressure 129/83 130/76 (mmHg) O2 Sat by Pulse 95 98 Oximetry 04/10/18 18:17 Temperature Pulse Rate Respiratory 18 Rate Blood Pressure (mmHg) O2 Sat by Pulse Oximetry Oxygen Devices in Use Now: None Appearance: NAD Eyes: No Scleral Icterus Ears/Nose/Mouth/Throat: NL Teeth, Lips, Gums Neck: NL Appearance and Movements; NL JVP Respiratory: Symmetrical Chest Expansion and Respiratory Effort, Clear to Auscultation Cardiovascular: NL Sounds; No Murmurs; No JVD, RRR Abdominal: NL Sounds; No Tenderness; No Distention, No Hepatosplenomegaly Extremities: No Edema Skin: No Rash or Ulcers, No Nodules or Sclerosis Neurological: Alert and Oriented x 3, NL Sensation, NL Muscle Strength and Tone Nutrition: Taking PO's Result Diagrams: 04/09/18 07:45 04/09/18 07:45 Assess/Plan/Problems-Billing Assessment: 47 year old female PMH CAD w/ stents to LAD, OM1, OM2 Nov 2016, current smoker, HLD presents with acute vice like chest pain. NSTEMI. s/p C showing OM1 occlusion, and 50% LAD occlusion with jailed diagonal. - Patient Problems (1) NSTEMI (non-ST elevated myocardial infarction) Current Visit: Yes Status: Acute Code(s): I21.4 - NON-ST ELEVATION (NSTEMI) MYOCARDIAL INFARCTION SNOMED Code(s): 91129380 Comment: chest pain free overnight went to [facility] today. troponins peaked at 0.05. OM1 was totally occluded and the LAD was 50% with a jailed diagnonal. Plan to observe overnight then refer to Dr. Navas at [facility] in [facility] of for further intervention continue aspirin and brilinta that was restarted this admission. BB atorvastatin 80mg (from home 40mg) A1C 5.5 smoking cessation. (2) HLD (hyperlipidemia) Current Visit: Yes Status: Acute Code(s): E78.5 - HYPERLIPIDEMIA, UNSPECIFIED SNOMED Code(s): 51122153 Comment: atorvastatin 80mg from home 40mg LDL 64 HDL 30 (3) CAD (coronary artery disease) Current Visit: Yes Status: Acute Code(s): I25.10 - ATHSCL HEART DISEASE OF [place] CORONARY ARTERY W/O ANG PCTRS SNOMED Code(s): 88490449 Comment: plan as above with statin, bb, DAPT (4) HTN (hypertension) Current Visit: Yes Status: Acute Code(s): I10 - ESSENTIAL (PRIMARY) HYPERTENSION SNOMED Code(s): 06896417 Comment: BB (5) Tobacco abuse Current Visit: No Status: Chronic Code(s): Z72.0 - TOBACCO USE SNOMED Code (s): 134604578 Comment: nicotine patch Status and Disposition: medicine inpatient.
[2018-04-10] MEDS: Mometasone 220 MCG MDI INH SCH (21:00)
[2018-04-10] MEDS: Nicotine Patch Removal NOTE FOLLOW UP SCH (22:16)
[2018-04-11] MEDS: Heparin VIAL(*) 5000 UNITS/ML VIAL (FIVE THOUSAND) SUBCUT SCH ×2 (06:10→14:38)
[2018-04-11 08:22] LABS: BUN/Creatinine Ratio 15.5 (8-20); Calcium 9.1 mg/dL (8.6-10.3); EGFR African American 106.8 (>60); EGFR Non-African American 88.2 (>60); Potassium 4.1 mmol/L (3.5-5.0)
[2018-04-11] MEDS: Aspirin 81 mg CHEW TAB* 81 MG TAB.CHEW PO SCH (08:29)
[2018-04-11] MEDS: Cetirizine* 10 MG TAB PO SCH (08:30)
[2018-04-11] MEDS: Pantoprazole TAB * 40 MG TAB PO SCH (08:30)
[2018-04-11] MEDS: Cholecalciferol TAB* 1000 UNITS PO SCH (08:30)
[2018-04-11] MEDS: Metoprolol Tartrate TAB* 25 MG PO SCH (08:30)
[2018-04-11] MEDS: Gabapentin CAP(*) 300 MG PO SCH (08:30)
[2018-04-11] MEDS: FLUoxetine CAP* 20 MG PO SCH (08:30)
[2018-04-11] MEDS: Ticagrelor* 90 MG TAB PO SCH (08:30)
[2018-04-11] MEDS: Nicotine PATCH 14 MG/24 HR* PATCH TRANSDERM SCH (08:31)
[2018-04-11] MEDS ORDERED: Nitroglycerin TAB 0.4 MG* 0.4 MG TAB SL PRN (08:36)
[2018-04-11] MEDS: busPIRone TAB* 15 MG PO SCH (08:43)
[2018-04-11] MEDS: Acetaminophen TAB* 325 MG PO PRN (08:43)
[2018-04-11 09:02] LABS: Troponin I 0.03 ng/mL (<0.04)
--- NOTE | 2018-04-11 09:34 | CATH ---
CC: Dr. Enmanuel Brar; Dr. Troy Sandy CARDIAC CATHETERIZATION REPORT: DATE OF SERVICE: 04/10/18 PROCEDURE: Cardiac catheterization including coronary angiography. INDICATION: Coronary artery disease, markedly abnormal stress test. Patient is a 47-year-old female with a history of hypertension, history of smoking, and history of co ronary artery disease. Patient had multiple stenting done in November 2016. At that time, she had a stent to her LAD, a stent to her OM1 vessel, and a stent to a branch off of the OM1 vessel. In her L AD, she has a 2.5 x 12 mm Synergy stent. In her branch vessel off of her OM1, she had a 2.75 x 12 mm Synergy stent. In her proximal OM, she received a 3.0 x 15 Synergy stent. Patient was admitted to the hospital with unstable angina. She had a stress test, which showed a large area of ischemia to h er anterior wall. Cardiac catheterization was recommended. PROCEDURE IN DETAIL: Patient was brought to the cardiac labor operator in a fasting state. Informed conse nt had been obtained prior to the procedure. All labs had been reviewed. Patient was placed supine on the catheterization table. Her radial area was prepped and draped in the usual fashion. 1% lidoc roderick was used for local anesthesia. The radial artery was entered by Seldinger technique and a 6-[facility] hydrophilic sheath was placed. An infusion of heparin, nitroglycerin, and verapamil was infused into the sheath. Patient underwent coronary angiography using a 6-Khmer AR1 catheter, a 6-Khmer AL 2 catheter, and a 5-Khmer Ikari guide catheter, AL3 7.5. At the end of the procedure, all sheaths a nd catheters were removed. Patient tolerated the procedure well with no complications. A total of 1 25 cc of Omnipaque dye was given. A total of 15 minutes of fluoro time was used. Central aortic blood pressure 109/75 with a mean of 90, left ventricular pressure 109/3 with an end d iastolic pressure of 9. CORONARY ARTERIES: 1. Right coronary artery: The right coronary artery was a small nondominant vessel and had a mid 50 % stenosis. Patient had dual ostia and no evidence of left main artery. 2. Left anterior descending artery: The LAD was a small vessel. The stent in the proximal portion had a 50% restenosis. There was a jailed diagonal vessel off the stented portion of the LAD. The re mainder of the LAD had mild diffuse disease. The diagonal vessel had mild diffuse disease. 3. Left circumflex artery: The circumflex artery was a large dominant vessel giving off 2 obtuse ma rginal branches and a PDA. The left circumflex distal PDA and distal OM vessels were without disease. The OM1 vessel with multi ple stenting was occluded at its proximal portion. There was evidence of faint collaterals to the di stal OM. IMPRESSION: 1. Occluded obtuse marginal off of the left circumflex artery at the stenting portion of the vessel itself. 2. A 50% restenosis of the proximal left anterior descending with a jailed diagonal vessel with 99% ostial stenosis of the diagonal vessel. RECOMMENDATION: Patient may benefit from coronary artery bypass surgery; however, it may be difficul t to apply bypass to the OM vessel. Patient will be referred for complex intervention to [facility] ty. [id number]/[facility] #: [id number]
[2018-04-11] MEDS ORDERED: Al Hydrox/Mg Hydrox/Simet LIQ* 30 ML UDC PO PRN (11:38)
[2018-04-11] MEDS: ALPRAZolam TAB* 0.5 MG PO PRN (13:00)
[2018-04-11 13:58] VITALS: BP 115/78
--- NOTE | 2018-04-11 14:04 | DS ---
DISCHARGE SUMMARY: DATE OF ADMISSION: 04/09/18 DATE OF DISCHARGE: 04/11/18 ADMITTING PROVIDER: Cristian Mccullough MD. PRIMARY CARE PROVIDER: Dr. Brar. OUTPATIENT JOINERY SETTER OUT: Dr. Troy Sandy. CONSULTING JOINERY SETTER OUT: Dr. Rodger Dover. ATTENDING PHYSICIAN ON DAY OF DISCHARGE: Cristian Mccullough MD. CHIEF COMPLAINT: Acute onset chest pressure and tightness. PRINCIPAL DIAGNOSES: [id number] myocardial infarction; multivessel coronary artery disease with 50% stenosis of the right coronary artery, in- stent 50% restenosis of the left anterior descending with a jailed diagonal ( 99 % ostial stenosis) and occlusion of the previously stented OM1 vessel HISTORY OF PRESENT ILLNESS/HOSPITAL COURSE: Inga Casillas is a 47-year-old female with a past medical history of multivessel coronary artery disease, status post stents to the LAD, OM1, and OM2 in November 2016; current and longtime smoker; severe anxiety; obesity, asthma, GERD. Please see H&P for full details, but briefly she woke up with severe vice-like squeezing chest tightness, 9/10 intensity on the morning of admission along with shortness of breath. Pain radiated up to her neck. She took a baby aspirin and had pain relief down to 1/10 but would later have some pain radiating down her left arm. She initially had troponin of 0.02 and it peaked at 0.05. She had some diffuse ST depressions anterolaterally, but actually improved from prior EKGs of September 2016. She gets all of her cardiac care through [facility] and her last catheterization was at [facility]. Of note, she did have a A1c of 5.5, LDL of 64, HDL of 30. Her nuclear stress test on hospital day #2 showed a large reversible perfusion defect involving the lateral and anterior blanca, new compared to the prior exam of 2013, global hypokinesis, and moderately abnormal estimated LV ejection fraction with EF of 43%. The impression was high risk based on the nuclear portion. She had a transthoracic echocardiogram which demonstrated an EF of 55% to 60%, abnormal left ventricular diastolic dysfunction and posterior wall hypertrophy. Dr. Rodger Dover, Cardiology, consulted on the case and recommended a left heart catheterization. This was performed on hospital day #2 and demonstrated 50% stenosis of the mid RCA, 50% restenosis of the LAD proximal portion. There was a jailed diagonal of the stented portion of the LAD with 99% ostial stenosis of the diagonal. The OM1 vessel had multiple previous stents and had the occlusion at the proximal portion. There was evidence of faint collaterals to the distal OM. The patient was recommended to have complex revascularization intervention with Dr. Andrew Navas of [facility] in [place], [place]. The patient had additional chest pain on hospital day #3, was given nitroglycerin tab with relief, is being discharged with nitro patch. She had no EKG changes and troponin on reevaluation was 0.03. She was advised not to have any exertion until this repeat procedure later this week. She was loaded with Brilinta on hospital day #1 and this was continued throughout hospitalization and upon discharge DISPO: home, guarded DISCHARGE MEDICATIONS: Include: 1. Albuterol 2 puffs inhaled t.i.d. p.r.n. 2. Alprazolam 0.5 mg p.o. t.i.d. p.r.n. 3. Aspirin 81 mg daily. 4. BuSpar 15 mg p.o. b.i.d. 5. Cholecalciferol 2000 units p.o. daily. 6. Fexofenadine 100 mg p.o. daily. 7. Fluoxetine 60 mg p.o. q.a.m. 8. Fluticasone 2 puffs inhaled b.i.d. 9. Gabapentin 300 mg p.o. b.i.d. 10. Nicotine patch 14 mg per 24 hours (new). 11. Metoprolol succinate 50 mg once daily. 12. Protonix 40 mg p.o. daily. 13. Lipitor 80 mg increased from 40 mg prior. 14. Nitroglycerin tabs 0.4 mg sublingual q.5 minutes p.r.n. to be used in the future, initially she will be on the patch. 15. Brilinta 90 mg p.o. b.i.d. (new). FOLLOWUP: The patient should follow up with Dr. Enmanuel Brar within [address] Sandy within 7 to 14 days after her additional procedure and later this week (Addendum 04/13/18) with Dr. Andrew Navas, ceramics technician of [facility]. It is very important the patient cease smoking. TIME SPENT: Time spent on this discharge 45 minutes. [id number]/[facility] #: [id number] MTDD
== END 2018-04-11 15:18 | disposition home or self-care (01) | DRG 190 ==
LOC: ED 06:29 → MEDTELE 10:00 → OBSVTOIN 04-10 19:47
PROVIDERS: ADMIT Internal Medicine; ATTEND Internal Medicine
PROC: B211YZZ Fluoroscopy of Multiple Coronary Arteries using Other Contrast (ICD-10-PCS; 2018-04-10)
PROC: 4A023N7 Measurement of Cardiac Sampling and Pressure, Left Heart, Percutaneous Approach (ICD-10-PCS; principal; 2018-04-10 14:00)
DX: I21.4 Non-ST elevation (NSTEMI) myocardial infarction (principal); Z68.41 Body mass index [BMI] 40.0-44.9, adult; I25.10 Atherosclerotic heart disease of native coronary artery without angina pectoris; F17.210 Nicotine dependence, cigarettes, uncomplicated; I11.9 Hypertensive heart disease without heart failure; F41.9 Anxiety disorder, unspecified; E66.9 Obesity, unspecified; K21.9 Gastro-esophageal reflux disease without esophagitis; J45.909 Unspecified asthma, uncomplicated; E55.9 Vitamin D deficiency, unspecified; E78.5 Hyperlipidemia, unspecified; Z95.5 Presence of coronary angioplasty implant and graft; Z79.82 Long term (current) use of aspirin; Z79.51 Long term (current) use of inhaled steroids; Z79.899 Other long term (current) drug therapy; Z80.42 Family history of malignant neoplasm of prostate; Z83.3 Family history of diabetes mellitus; Z82.49 Family history of ischemic heart disease and other diseases of the circulatory system; Z83.438 Family history of other disorder of lipoprotein metabolism and other lipidemia
CPT/HCPCS: 36415; 71045; 78452; 80048; 80053; 80061; 83036; 83605; 83735; 83880; 84484; 84702; 85025; 85379; 85610; 85730; 93005; 93017; 93306; 93458; 94640; 99156; 99157; 99283; 99406; A9270-GY; A9502; G0378; J1644; J2250; J2785; J3010

== ENCOUNTER 2018-07-03 09:07 | Inpatient (IN) | payer OTHER ==
[2018-07-03 09:39] LABS: ABS Eosinophils 0.2 10^3/ul (0-0.6); ABS Lymphocytes 1.2 10^3/ul (1.0-4.8); ABS Monocytes 0.5 10^3/ul (0-0.8); ABS Neutrophils 3.7 10^3/ul (1.5-7.7); Eosinophil % 3.8 %; Hematocrit 38 % (35-47); Hemoglobin 12.5 g/dL (12.0-16.0); Lymphocyte % 21.2 %; Mean Corpuscular HGB Conc 33 g/dL (31-36); Mean Corpuscular Hemoglobin 28 pg (27-31); Mean Corpuscular Volume 83 fL (80-97); Mean Platelet Volume 7.4 fL (7.4-10.4); Platelet Count 334 10^3/uL (150-450); Red Blood Count 4.53 10^6 /uL (3.70-4.87); Red Cell Distribution Width 15 % (10.5-15); White Blood Count 5.6 10^3/uL (3.5-10.8)
[2018-07-03 09:49] LABS: INR 0.89 (0.82-1.09)
[2018-07-03 09:59] LABS: Albumin 4.2 g/dL (3.2-5.2); Albumin/Globulin Ratio 1.4 (1-3); Calcium 9.1 mg/dL (8.6-10.3); EGFR African American 83.3 (>60); EGFR Non-African American 68.9 (>60); Potassium 3.9 mmol/L (3.5-5.0); Total Bilirubin 0.4 mg/dL (0.2-1.0); Total Protein 7.2 g/dL (6.4-8.9)
[2018-07-03 10:04] LABS: Myoglobin 25.5 ng/mL (14.3-65.8)
[2018-07-03 10:05] LABS: CKMB ng/mL 3.2 ng/mL (0.6-6.3)
--- NOTE | 2018-07-03 11:04 | ED ---
HPI Chest Pain - HPI Summary HPI Summary: The patient is a 47 year old F presenting to [facility] with a chief complaint of L anterior chest pain since 0730 this morning. Per triage the pain was a 9/10. The pain radiated up her neck and down her L arm. Patient reports taking nitro with no effect at 0800. Patient also reports taking two 1 mg Xanax pills at 0800 which resolved her chest pain. Patient's chest pain resolved by the time she was placed in a room. Patient stated she has been having chest pain everyday with exertion and used all of her available nitro. Patient reported it was too soon to refill her nitro script. Patient reports her symptoms are aggravated by exertion. Patient reports her symptoms are alleviated by Xanax. Patient also reported having 2 stents placed at [facility] 6 weeks ago and her 3rd stent could not be placed. - History of Current Complaint Chief Complaint: EDChestPainROMI Time Seen by Provider: 07/03/18 09:16 Hx Obtained From: Patient Onset/Duration: Started Hours Ago, Resolved Time of Onset: 07:30 Timing: Constant, Lasting Minutes - 30 minutes Initial Severity: Severe Current Severity: None Pain Intensity: 9 Pain Scale Used: 0-10 Numeric Chest Pain Location: Left Anterior Chest Pain Radiates: Yes Chest Pain Radiates To:: Arm - L, Neck - L side Aggravating Factor(s): Exertion Alleviating Factor(s): Other: - Xanax Associated Signs and Symptoms: Positive: Chest Pain, Other: - Radiated pain in upper neck and down the L arm - Additional Pertinent History Primary Care Physician: [id number] - Allergy/Home Medications Allergies/Adverse Reactions: Allergies Allergy/AdvReac Type Severity Reaction Status Date / Time No Known Allergies Allergy Verified 04/09/18 06:34 Home Medications: Home Medications ALPRAZolam TAB* [Xanax TAB*] 1 mg PO TID PRN 07/03/18 [History Confirmed ] Albuterol HFA INHALER* [Ventolin HFA Inhaler*] 2 puff INH Q4H PRN 07/03/18 [ History Confirmed 07/03/18] FLUoxetine CAP* [PROzac CAP*] 60 mg PO DAILY 07/03/18 [History Confirmed ] Isosorbide Mononitrate ER TAB* [Imdur ER TAB*] 60 mg PO DAILY 07/03/18 [History Confirmed 07/03/18] Metoprolol Succinate XL TAB* [Toprol XL TAB*] 50 mg PO DAILY 07/03/18 [History Confirmed 07/03/18] amLODIPine TAB* [Norvasc 5 mg TAB*] 5 mg PO DAILY 07/03/18 [History Confirmed ] PMH/Surg Hx/FS Hx/Imm Hx Previously Healthy: No Endocrine/Hematology History: Denies: Hx Anticoagulant Therapy, Hx Diabetes, Hx Thyroid Disease Cardiovascular History: Reports: Hx Angina - 12/2013- STATES WAS ANXIETY RELATED Denies: Hx Coronary Artery Disease, Hx Hypercholesterolemia, Hx Hypertension , Hx Myocardial Infarction, Hx Pacemaker/ICD, Hx Valvular Heart Disease Respiratory History: Reports: Hx Asthma - PRN PROAIR, Other Respiratory Problems /Disorders - VOCAL CORD POLYPS Denies: Hx Chronic Obstructive Pulmonary Disease (COPD) GI History: Reports: Hx Gastroesophageal Reflux Disease - ROUTINE MEDICATION FOR Denies: Hx Ulcer History: Denies: Hx Renal Disease Sensory History: Reports: Hx Contacts or Glasses - GLASSES Denies: Hx Hearing Aid Opthamlomology History: Reports: Hx Contacts or Glasses - GLASSES Neurological History: Denies: Hx Dementia, Hx Seizures, Hx Spinal Cord Injury, Hx Transient Ischemic Attacks (TIA) Psychiatric History: Reports: Hx Anxiety - MEDICATION FOR, Hx Depression - MEDICATION FOR Denies: Hx Substance Abuse - Surgical History Surgery Procedure, Year, and Place: tubal ligation-[facility]. breast reduction-AGE 16 - [facility]. cyst removed from thumb-[facility] [place]. cholecystectomy-[facility] [place] Hx Anesthesia Reactions: Yes - NAUSEA AND VOMITING Infectious Disease History: No Infectious Disease History: Denies: Hx Clostridium Difficile, Hx Hepatitis, Hx Human Immunodeficiency Virus (HIV), History Other Infectious Disease, Traveled Outside the [place] in Last 30 Days - Family History Known Family History: Positive: Hypertension, Diabetes - Social History Alcohol Use: Occasionally Hx Substance Use: Yes Substance Use Type: Reports: Prescribed Hx Tobacco Use: Yes Smoking Status (MU): Light Every Day Tobacco Smoker Type: Cigarettes Amount Used/How Often: 1/4-1/2 ppd X 20 YEARS Have You Smoked in the Last Year: Yes Review of Systems Negative: Fever - on vitals, temp is 97.3 F Positive: Chest Pain - L anterior Positive: Other - Radiated pain: upper neck and down the L arm All Other Systems Reviewed And Are Negative: Yes Physical Exam - Summary Physical Exam Summary: Appearance: The patient is well-nourished in no acute distress and in no acute pain. Skin: The skin is warm and dry and skin color reflects adequate perfusion. HEENT: The head is normocephalic and atraumatic. The pupils are equal and reactive. The conjunctivae are clear and without drainage. Nares are patent and without drainage. Mouth reveals moist mucous membranes and the throat is without erythema and exudate. The external ears are intact. The ear canals are patent and without drainage. The tympanic membranes are intact. Neck: The neck is supple with full range of motion and non-tender. There are no carotid bruits. There is no neck vein distension. Respiratory: Chest is non-tender. Lungs have rare expiatory wheezing. Cardiovascular: Heart is regular rate and rhythm. There is no murmur or rub auscultated. There is no peripheral edema and pulses are symmetrical and equal. Abdomen: The abdomen is soft and non-tender. There are normal bowel sounds heard in all four quadrants and there is no organomegaly palpated. Musculoskeletal: There is no back tenderness noted. Extremities are non-tender with full range of motion. There is good capillary refill. There is no peripheral edema or calf tenderness elicited. Neurological: Patient is alert and oriented to person, place and time. The patient has symmetrical motor strength in all four extremities. Cranial nerves are grossly intact. Deep tendon reflexes are symmetrical and equal in all four extremities. Triage Information Reviewed: Yes Vital Signs On Initial Exam: Initial Vitals Temp Pulse Resp BP Pulse Ox 97.3 F 72 18 143/103 97 07/03/18 09:15 07/03/18 09:15 07/03/18 09:15 07/03/18 09:15 07/03/18 09:15 Vital Signs Reviewed: Yes - Jovanny Coma Scale Best Eye Response: 4 - Spontaneous Best Motor Response: 6 - Obeys Commands Best Verbal Response: 5 - Oriented Coma Scale Total: 15 Diagnostics - Vital Signs Vital Signs Temp Pulse Resp BP Pulse Ox 07/03/18 09:15 97.3 F 72 18 143/103 97 - Laboratory Lab Results: Lab Results 07/03/18 07/03/18 07/03/18 Range/Units 09:27 09:27 09:27 WBC 5.6 (3.5-10.8) 10^3/uL RBC 4.53 (3.70-4.87) 10^6 /uL Hgb 12.5 (12.0-16.0) g/dL Hct 38 (35-47) % MCV 83 (80-97) fL MCH 28 (27-31) pg MCHC 33 (31-36) g/dL RDW 15 (10.5-15) % Plt Count 334 (150-450) 10^3/uL MPV 7.4 (7.4-10.4) fL Neut % (Auto) 64.9 % Lymph % (Auto) 21.2 % Tyler % (Auto) 9.4 % Eos % (Auto) 3.8 % Baso % (Auto) 0.7 % Absolute Neuts (auto) 3.7 (1.5-7.7) 10^3/ul Absolute Lymphs (auto) 1.2 (1.0-4.8) 10^3/ul Absolute Monos (auto) 0.5 (0-0.8) 10^3/ul Absolute Eos (auto) 0.2 (0-0.6) 10^3/ul Absolute Basos (auto) 0.0 (0-0.2) 10^3/ul Absolute Nucleated RBC 0.0 10^3/ul Nucleated RBC % 0.0 INR (Anticoag Therapy) 0.89 (0.82-1.09) Sodium 138 (135-145) mmol/L Potassium 3.9 (3.5-5.0) mmol/L Chloride 103 (101-111) mmol/L Carbon Dioxide 26 (22-32) mmol/L Anion Gap 9 (2-11) mmol/L BUN 15 (6-24) mg/dL Creatinine 0.88 (0.51-0.95) mg/dL Est GFR ( Amer) 83.3 (>60) Est GFR (Non-Af Amer) 68.9 (>60) BUN/Creatinine Ratio 17.0 (8-20) Glucose 115 H (70-100) mg/dL Lactic Acid (0.5-2.0) mmol/L Calcium 9.1 (8.6-10.3) mg/dL Total Bilirubin 0.40 (0.2-1.0) mg/dL AST 15 (13-39) U/L ALT 18 (7-52) U/L Alkaline Phosphatase 119 H (34-104) U/L Total Creatine Kinase 134 (10-223) U/L CK-MB (CK-2) 3.2 (0.6-6.3) ng/mL Myoglobin 25.5 (14.3-65.8) ng/mL Troponin I 0.00 (<0.04) ng/mL Total Protein 7.2 (6.4-8.9) g/dL Albumin 4.2 (3.2-5.2) g/dL Globulin 3.0 (2-4) g/dL Albumin/Globulin Ratio 1.4 (1-3) Blood Type Antibody Screen 07/03/18 07/03/18 Range/Units 09:27 09:27 WBC (3.5-10.8) 10^3/uL RBC (3.70-4.87) 10^6 /uL Hgb (12.0-16.0) g/dL Hct (35-47) % MCV (80-97) fL MCH (27-31) pg MCHC (31-36) g/dL RDW (10.5-15) % Plt Count (150-450) 10^3/uL MPV (7.4-10.4) fL Neut % (Auto) % Lymph % (Auto) % Tyler % (Auto) % Eos % (Auto) % Baso % (Auto) % Absolute Neuts (auto) (1.5-7.7) 10^3/ul Absolute Lymphs (auto) (1.0-4.8) 10^3/ul Absolute Monos (auto) (0-0.8) 10^3/ul Absolute Eos (auto) (0-0.6) 10^3/ul Absolute Basos (auto) (0-0.2) 10^3/ul Absolute Nucleated RBC 10^3/ul Nucleated RBC % INR (Anticoag Therapy) (0.82-1.09) Sodium (135-145) mmol/L Potassium (3.5-5.0) mmol/L Chloride (101-111) mmol/L Carbon Dioxide (22-32) mmol/L Anion Gap (2-11) mmol/L BUN (6-24) mg/dL Creatinine (0.51-0.95) mg/dL Est GFR ( Amer) (>60) Est GFR (Non-Af Amer) (>60) BUN/Creatinine Ratio (8-20) Glucose (70-100) mg/dL Lactic Acid 1.6 (0.5-2.0) mmol/L Calcium (8.6-10.3) mg/dL Total Bilirubin (0.2-1.0) mg/dL AST (13-39) U/L ALT (7-52) U/L Alkaline Phosphatase (34-104) U/L Total Creatine Kinase (10-223) U/L CK-MB (CK-2) (0.6-6.3) ng/mL Myoglobin (14.3-65.8) ng/mL Troponin I (<0.04) ng/mL Total Protein (6.4-8.9) g/dL Albumin (3.2-5.2) g/dL Globulin (2-4) g/dL Albumin/Globulin Ratio (1-3) Blood Type B Negative Antibody Screen Negative Result Diagrams: 07/03/18 09:27 07/03/18 09:27 Lab Statement: Any lab studies that have been ordered have been reviewed, and results considered in the medical decision making process. - Radiology CXR Radiology Interpretation Completed By: Radiologist Summary of Radiographic Findings: NO ACTIVE CARDIOPULMONARY DISEASE IS NOTED. ED physician has reviewed this report. - EKG 09:15 Cardiac Rate: NL - rate of 70 BPM EKG Rhythm: Sinus Rhythm Summary of EKG Findings: Normal sinus rhythm, normal ST, no ectopy, no STEMI Chest Pain Course/Dx - Course Course Of Treatment: Ms. Casillas has known coronary artery disease. Apparently she was cathetered and found to have 3 lesions. She got referred to [place] [facility] the [facility] where they were able to stent 2 of the 3 lesions. This morning about she started with chest pain while dropping her partner off at work. She went home and took a nitroglycerin about a quarter 8. It didn't do anything so shortly after 8:00 she took 2 Xanax. She comes in pain free it's unclear exactly when the pain resolved but she she seems to only had it for less than an hour. It was not associated with any other symptoms and there are no other exacerbating or relieving factors. She was placed on a monitor, was nontoxic in appearance and her vitals are stable. Initial EKG showed no acute ischemic changes. Initial troponin returned at 0. A repeat troponin obtained 3 hours later was 0.13. I spoke with Dr. Dover recommended admission to medical treatment at this time. I spoke with the hospitalist. - Diagnoses Provider Diagnoses: Chest pain - Provider Notifications Discussed Care Of Patient With: Scarlett Rosen Time Discussed With Above Provider: 13:54 Instructed by Provider To: Admit As Inpatient - Discussed patient with Dr. Rosen, hospitalist and Dr. Dover, physicians and surgeons. Dr. Rosen is agreeable to admittance. - Critical Care Time Critical Care Time: 30-74 min - 30 Discharge - Sign-Out/Discharge Documenting (check all that apply): Patient Departure - admitted Patient Received Moderate/Deep Sedation with Procedure: No - Discharge Plan Condition: Stable Disposition: ADMITTED TO [facility] Referrals: Enmanuel Brar MD [Primary Care Provider] - - Billing Disposition and Condition Condition: STABLE Disposition: Admitted to [facility] - Attestation Statements Document Initiated by Scribe: Yes Documenting Scribe: Sixto Ambriz Provider For Whom Miguelinaibe is Documenting (Include Credential): Abilio Lugo MD Scribe Attestation: I, Sixto Ambriz, scribed for Abilio Lugo MD on 07/03/18 at 1604. Scribe Documentation Reviewed: Yes Provider Attestation: The documentation as recorded by the scribe, Sixto Ambriz accurately reflects the service I personally performed and the decisions made by me, Abilio Lugo MD Status of Scribe Document: Viewed
[2018-07-03 12:56] LABS: Troponin I 0.13 ng/mL (<0.04)
[2018-07-03] MEDS ORDERED: Albuterol HFA INHALER* 8 gm MDI INH PRN (15:37)
[2018-07-03 16:37] LABS: TSH (Thyroid Stimulating Horm) 7.5 mcIU/mL (0.34-5.60)
[2018-07-03 16:56] LABS: Troponin I 0.39 ng/mL (<0.04)
--- NOTE | 2018-07-03 17:14 | HP ---
HISTORY AND PHYSICAL: DATE OF ADMISSION: 07/03/18 PROVIDER: Flor Garcia NP ATTENDING PHYSICIAN: Dr. Scarlett Lovell * (dictated by Flor Garcia NP). PRIMARY CARE PROVIDER: Dr. Brar. PRIMARY OUTPATIENT PROP SETTER: Dr. Sandy. CHIEF COMPLAINT: Squeezing chest pain. HISTORY OF PRESENT ILLNESS: Ms. Casillas is a 47-year-old female with a past medical history significant for multivessel coronary artery disease, status post stenting in March and April of 2018 at [facility], who has a long-term smoking history, who presented to the emergency room with development of chest pain that started at approximately 7 a.m. The patient reports that she recently had cardiac catheterization with stent placement at [facility] in March and again on 05/11/18. She does report at that time there was one vessel they were unable to stent that was totally occluded and told the patient at that time that she may require open heart surgery or bypass surgery in the future. The patient reports that she walked up a wheelchair ramp into the house. She became very short of breath with exertion and developed squeezing, crushing chest pressure that radiated to her left neck. She was nauseated and sweaty. She reports that she took nitro with minimal relief and as the nitro wore off the chest pain came back and was worse than initial, so she presented to the emergency room for further evaluation. The patient reports that she took aspirin and Xanax at home prior to arrival. She reports that exertion makes the chest pain worse, rest does improve the chest pain. She does report that minimal activity does produce chest pain. She reports that she takes nitro sublingual 4 to 5 times a week for chest pain. The patient also reports that in the past 4 to 6 weeks she has gained approximately 75 pounds. She reports that she is feeling bloated and lower extremities feel swollen. While in the emergency room, the patient had routine lab work drawn. She had an EKG that did not show any acute changes. Her initial troponin was 0.00 and second troponin was 0.13. Due to her history of coronary artery disease and positive troponin, we were asked to see and evaluate her for admission. PAST MEDICAL HISTORY: 1. Multivessel coronary artery disease, status post stenting. 2. History of tobacco abuse, quit approximately 14 weeks ago. 3. Hyperlipidemia. 4. Obesity with a BMI of 46.6. 5. GERD. 6. Asthma. 7. Anxiety. 8. Vitamin D deficiency. 9. Hypertension. 10. Lyme disease. 11. Depression. PAST SURGICAL HISTORY: 1. Cholecystectomy. 2. Breast reduction. 3. Tubal ligation. 4. Cyst removed from her thumb. 5. Cardiac stents in March and April of 2018 at [facility]. HOME MEDICATIONS: 1. Isosorbide mononitrate 60 mg p.o. daily. 2. Fluoxetine 60 mg p.o. daily. 3. Pantoprazole 40 mg p.o. daily. 4. Nitroglycerin 0.4 mg patch. The patient reports she is not using. 5. Metoprolol 50 mg p.o. daily. 6. BuSpar 15 mg p.o. b.i.d. 7. Gabapentin 300 mg p.o. b.i.d. 8. Fluticasone HFA 110 mcg 2 puffs b.i.d. 9. Fexofenadine 180 mg p.o. daily. 10. Brilinta 90 mg p.o. b.i.d. 11. Atorvastatin 80 mg daily. 12. Aspirin 81 mg p.o. daily. 13. Albuterol HFA inhaler 2 puffs q.4 hours as needed. 14. Amlodipine 5 mg p.o. daily. 15. Xanax 1 mg p.o. t.i.d. p.r.n. anxiety. FAMILY HISTORY: Father at the age of 77 from prostate cancer. He had a CABG, diabetes, hypertension, and hyperlipidemia. Mother is alive. SOCIAL HISTORY: The patient is a former smoker. She quit approximately 14 weeks ago. Prior to that, she smoked half-a-pack a day for approximately 20 years. She reports occasional alcohol use. Denies any illicit drug use. She is not currently employed. She lives with her significant other, Ted. Surrogate decision maker in the event she is unable to make her own decisions is her mother or her significant other, Ted. She is a full code. REVIEW OF SYSTEMS: The patient does report chills. Denies any fever or unintended weight loss. She does report a 75-pound approximate weight gain in the last 4 to 6 weeks. She does report chest pain that radiated to her left neck. She does report some lower extremity swelling. She denies any cough, hemoptysis. She does report shortness of breath with exertion. She does report nausea with chest pain. She does report chronic diarrhea. Denies any abdominal pain, hematuria, dysuria, focal weakness, or sensory loss. Denies any visual complaints, dysphagia, arthralgias, myalgias, rashes, lesions, or open sores. She denies any psychosis. She does report her anxiety is worse. She has difficulty sleeping at night as she worries that she may not wake up. PHYSICAL EXAMINATION GENERAL: At this time, Ms. Casillas is a 47-year-old female. She is resting comfortably on the stretcher in the emergency room. She is alert and oriented x3. VITAL SIGNS: Blood pressure 113/67, heart rate is 62, respirations 18, O2 saturation 98%, temperature was 97.3. HEENT: Head is atraumatic, normocephalic. Eyes: EOMs are intact. Sclerae anicteric and not pale. Oral mucosa appeared to be moist. NECK: Supple. LUNGS: Clear to auscultation bilaterally. No wheezes, rales, or rhonchi. CARDIAC: S1, S2. Regular rate and rhythm. No murmurs, rubs, or gallops. ABDOMEN: Soft and nontender. Bowel sounds are present x4. She is obese. EXTREMITIES: She is able to move all 4 extremities with 5/5 strength. Pedal pulses are +2 bilaterally. NEUROLOGIC: She is awake, alert, oriented x3. Speech is clear. Thought process is intact. There are no gross focal deficits. PSYCH: She is alert and oriented x3. She is calm and cooperative. DIAGNOSTIC STUDIES/LAB DATA: WBCs are 5.6, RBCs 4.53, hemoglobin 12.5, hematocrit 38, platelet count is 334. INR was 0.89. Sodium was 138, potassium 3.9, chloride 103, carbon dioxide was 26, anion gap of 9, BUN was 15, creatinine 0.88, glucose was 115, lactic acid 1.6, calcium 9.1. ASTs were 15, ALTs were 18, alkaline phosphatase 119. Total CK was 134, myoglobin was 25.5. Troponin was 0.00, repeat was 0.13. She had a chest x-ray, radiologist's impression: No active cardiopulmonary disease. She had an electrocardiogram, which showed sinus rhythm at a rate of 70. She has T- wave inversions in V1, V2, which is consistent with prior EKG. ASSESSMENT AND PLAN: Ms. Casillas is a 47-year-old female with past medical history significant for coronary artery disease, status post stenting, last in April of 2018; hyperlipidemia; obesity; gastroesophageal reflux disease; and anxiety, who presented to the emergency room with complaints of crushing chest pain. She will be admitted under observation for: 1. Chest pain. Suspect this is related to non-stemi. The patient does have known cardiac history, status post stenting with a known occlusion that was unable to be stented. She has an elevated troponin. We will monitor on telemetry. I will continue her Imdur, metoprolol, aspirin, Lipitor, Brilinta as previously prescribed. I have spoken to Dr. Dover from Cardiology, who will consult on the patient. We will repeat an EKG in the a.m. and continue to trend her troponins. 2. Hyperlipidemia. She will continue on atorvastatin as previously prescribed. 3. Gastroesophageal reflux disease. She will continue on omeprazole as previously prescribed. 4. Asthma. She will continue on Flovent and albuterol inhaler as needed for shortness of breath. 5. Anxiety. She will continue her Xanax as previously prescribed. 6. History of tobacco abuse. The patient has currently quit smoking, was offered nicotine patch and inhalers and reports she does not need them at this time. 7. FEN: She can have a heart-healthy, decaf okay diet. 8. Code status: She is a full code. 9. DVT prophylaxis: I will place her on Lovenox subcu. TIME SPENT: Time spent on this admission was 60 minutes, greater than half that time was spent at the bedside reviewing events leading thus far to her hospitalization, performing my physical exam, and reviewing my plan of care. I have discussed this with my attending, Dr. Scarlett Lovell; she is in agreement with my plan. FLOR GARCIA, EMERGENCY DEPARTMENT PHYSICIAN [id number]/[facility] #: [id number] VALENTINO
[2018-07-03] MEDS: Atorvastatin* 80 MG TAB PO SCH (17:51)
[2018-07-03] MEDS: Enoxaparin(*) 40 MG/0.4 ML SYR SUBCUT SCH (17:51)
[2018-07-03] MEDS: Mometasone 220 MCG MDI INH SCH (18:12)
[2018-07-03 19:05] LABS: Troponin I 0.47 ng/mL (<0.04)
[2018-07-03] MEDS: Gabapentin CAP(*) 300 MG PO SCH (20:59)
[2018-07-03] MEDS: Ticagrelor* 90 MG TAB PO SCH (20:59)
[2018-07-03] MEDS: busPIRone TAB* 15 MG PO SCH (20:59)
[2018-07-03] MEDS: Acetaminophen TAB* 325 MG PO PRN (21:00)
[2018-07-03] MEDS: ALPRAZolam TAB* 0.5 MG PO PRN (21:03)
--- NOTE | 2018-07-03 21:03 | CONS ---
CC: Dr. Enmanuel Brar; Dr. Marlon Sandy * CARDIOLOGY CONSULTATION: DATE OF CONSULT: 07/03/18 REASON FOR CONSULT: Coronary artery disease, chest pain. HISTORY OF PRESENT ILLNESS: The patient is a 47-year-old female with a history of coronary artery disease, history of 3-vessel stenting in November of 2016. The patient was admitted to the hospital in March with unstable angina. A stress test at that time showed a larger ischemia to her lateral wall. Cardiac catheterization showed critical stenosis to her diagonal vessel at her LAD stent , also an occluded OM1 vessel where her stent previously was. The patient was evaluated down in [facility] and underwent high-risk stenting to her diagonal vessel and attempted opening of her chronic OM. They were unable to open her chronic OM. They did put a stent in her OM2 vessel but not in her OM1 vessel. The patient states that last night and this morning, she was having increasing chest pain. This morning, she had an episode of severe chest pain, the worse she has had in quite some time. She came to the emergency room. Her initial troponin level was 0.13. In speaking with her now, she denies any chest pain. PAST MEDICAL HISTORY: Significant for coronary artery disease, hypertension, hyperlipidemia, obesity. She is a long time smoker but has quit since her last admission here. OUTPATIENT MEDICATIONS: 1. Fexofenadine 180 mg a day. 2. Pantoprazole 40 mg a day. 3. Gabapentin 300 mg b.i.d. 4. Aspirin 81 mg a day. 5. BuSpar 15 mg b.i.d. 6. Atorvastatin 80 mg a day. 7. Nitroglycerin patch. 8. Brilinta 90 mg b.i.d. 9. Alprazolam. 10. Fluoxetine 60 mg a day. 11. Metoprolol succinate 50 mg daily. 12. Amlodipine 5 mg a day. 13. Isosorbide 60 mg a day. ALLERGIES: No known drug allergies. FAMILY HISTORY: Positive for early coronary artery disease and diabetes. SOCIAL HISTORY: She lives with her boyfriend. Her son is a tremendous stress on her because of his drug addiction. She denies tobacco use. Rare alcohol use. She does not get any regular exercise. REVIEW OF SYSTEMS: Positive for chest pain. Positive for shortness of breath. Negative for changes in bowel or bladder habits, negative for change in weight. Other 12-point review was unremarkable. PHYSICAL EXAM: Height is 5 feet 5 inches, weight 259 pounds, temperature 98.3, blood pressure 104/66, respiratory rate is 16, heart rate is 79, oxygen saturation 97% on room air. Sclerae anicteric. Oropharynx is pink without erythema. Carotids are 2+ without bruits. JVD is normal. Thyroid is normal. Cardiac Exam: S1, S2 without any murmurs, rubs, or gallops. Lungs are clear to auscultation bilaterally with no dullness to percussion. Abdomen is soft, nontender, nondistended with normoactive bowel sounds. Extremities show no edema. She has 2+ pulses throughout. The patient is awake, alert, and oriented. She moves all 4 extremities equally. DIAGNOSTIC STUDIES/LAB DATA: CBC within normal limits. Chemistries within normal limits. Troponins initially 0.0, second troponin 0.1, third troponin 0.4. TSH is abnormal at 7.5. IMPRESSION AND PLAN: This is a 47-year-old female with a history of 3-vessel coronary artery disease, who was admitted to the hospital with an acute coronary syndrome, non-ST elevation myocardial infarction. The patient is currently pain free. For now, my recommendation is that the patient continue to be observed overnight. The patient likely needs bypass surgery at this point. She has failed multiple stenting. I will discuss with the patient whether she needs to be transferred to an institution that offers bypass surgery or whether she can be discharged home and have an outpatient consultation. [id number]/[facility] #: [id number] VAL[place]
[2018-07-03 21:45] LABS: Troponin I 0.42 ng/mL (<0.04)
[2018-07-04 00:51] LABS: Troponin I 0.42 ng/mL (<0.04)
[2018-07-04 06:31] LABS: Urine Appearance Clear; Urine Bilirubin Negative (Negative); Urine Blood Negative (Negative); Urine Color Straw; Urine Glucose Negative (Negative); Urine Ketones Negative (Negative); Urine Nitrite Negative (Negative); Urine Protein Negative (Negative); Urine Specific Gravity 1.009 (1.010-1.030); Urine Urobilinogen Negative (Negative)
[2018-07-04 06:47] LABS: HDL Cholesterol 34.5 mg/dL
[2018-07-04] MEDS: Ticagrelor* 90 MG TAB PO SCH (08:07)
[2018-07-04] MEDS: busPIRone TAB* 15 MG PO SCH ×2 (08:07→20:58)
[2018-07-04] MEDS: Gabapentin CAP(*) 300 MG PO SCH ×2 (08:07→20:59)
[2018-07-04] MEDS ORDERED: FLUoxetine CAP* 20 MG PO SCH (09:00)
[2018-07-04] MEDS ORDERED: Pantoprazole TAB * 40 MG TAB PO SCH (09:00)
[2018-07-04] MEDS ORDERED: amLODIPine TAB* 5 MG PO SCH (09:00)
[2018-07-04] MEDS ORDERED: Aspirin 81 mg CHEW TAB* 81 MG TAB.CHEW PO SCH (09:00)
[2018-07-04] MEDS ORDERED: Metoprolol Succinate XL TAB* 50 MG PO SCH (09:00)
[2018-07-04] MEDS ORDERED: Isosorbide Mononitrate ER TAB* 60 MG PO SCH (09:00)
--- NOTE | 2018-07-04 09:00 | PN ---
Subjective Date of Service: 07/04/18 Interval History: Ms. Casillas reports that she is feeling well this morning. She has had no chest pain since admission. She is awaiting further discussions between her mom, Dr Dover and herself to decide how she will be transported to [facility] for anticipated cardiac bypass surgery. Objective Active Medications: Acetaminophen (Tylenol Tab*) 650 mg PO Q4H PRN Albuterol (Ventolin Hfa Inhaler*) 2 puff INH Q4H PRN Alprazolam (Xanax Tab*) 1 mg PO TID PRN Amlodipine Besylate (Norvasc Tab*) 5 mg PO DAILY KYREE Aspirin (Aspirin 81 Mg Chew Tab*) 81 mg PO DAILY KYREE Atorvastatin Calcium (Lipitor*) 80 mg PO 1700 KYREE Buspirone HCl (Buspar Tab *) 15 mg PO BID KYREE Enoxaparin Sodium (Lovenox(*)) 40 mg SUBCUT Q24H KYREE Fluoxetine HCl (Prozac Cap*) 60 mg PO DAILY KYREE Gabapentin (Neurontin Cap(*)) 300 mg PO BID KYREE Isosorbide Mononitrate (Imdur Er Tab*) 60 mg PO DAILY KYREE Metoprolol Succinate (Toprol Xl Tab*) 50 mg PO DAILY KYREE Mometasone Furoate (Asmanex 220 Mcg Mdi *) 2 puff INH QPM KYREE Pantoprazole Sodium (Protonix Tab*) 40 mg PO DAILY KYREE Ticagrelor (Brilinta*) 90 mg PO BID [facility] Vital Signs: Temp Pulse Resp BP Pulse Ox 98.0 F 66 16 106/85 98 07/04/18 07:16 07/04/18 07:16 07/04/18 08:07 07/04/18 07:16 07/04/18 07:16 Oxygen Devices in Use Now: None Appearance: Female sitting up in chair in NAD Eyes: No Scleral Icterus Ears/Nose/Mouth/Throat: Mucous Membranes Moist Neck: Trachea Midline Respiratory: Symmetrical Chest Expansion and Respiratory Effort, Clear to Auscultation Cardiovascular: NL Sounds; No Murmurs; No JVD, No Edema Abdominal: NL Sounds; No Tenderness; No Distention Extremities: No Edema Skin: No Rash or Ulcers Neurological: Alert and Oriented x 3, NL Muscle Strength and Tone Nutrition: Taking PO's Result Diagrams: 07/03/18 09:27 07/03/18 09:27 Additional Lab and Data: . Assess/Plan/Problems-Billing Assessment: Ms. Casillas is a 47 yo F with a PMH of cardiac stent placement in 2017 and again in Mar and April 2018 who was admitted on 07/03/18 with chest pain with exertion. - Patient Problems (1) NSTEMI (non-ST elevated myocardial infarction) Comment: - Chest pain free at rest. - Trops peaked at 0.47. - Complex hx of multiple stent placements, appreciate cardiology consultation. Cardiac bypass surgery recommended in [facility], awaiting further input from cardiology regarding plan for transfer. - Continue aspirin, isosorbide, ticagrelor, metoprolol, and atorvastatin (2) HLD (hyperlipidemia) Comment: - Continue atorvastatin. (3) HTN (hypertension) Comment: - SBP 110s - Continue amlodipine and metoprolol. (4) DVT prophylaxis Comment: - Lovenox (5) Full code status Comment: Status and Disposition: OBV. Anticipate transfer to [facility] for cardiac bypass today.
[2018-07-04] MEDS: Acetaminophen TAB* 325 MG PO PRN (11:21)
[2018-07-04] MEDS: ALPRAZolam TAB* 0.5 MG PO PRN ×2 (11:22→20:59)
[2018-07-04] MEDS: Atorvastatin* 80 MG TAB PO SCH (17:11)
[2018-07-04] MEDS ORDERED: Heparin VIAL(*) 5000 UNITS/ML VIAL (FIVE THOUSAND) SUBCUT SCH (18:00)
[2018-07-04] MEDS: Enoxaparin(*) 40 MG/0.4 ML SYR SUBCUT SCH (18:09)
[2018-07-04] MEDS: Mometasone 220 MCG MDI INH SCH (18:17)
[2018-07-05 04:50] VITALS: BP 119/78
[2018-07-05] MEDS: ALPRAZolam TAB* 0.5 MG PO PRN (05:49)
== END 2018-07-05 06:00 | disposition short-term general hospital (02) | DRG 190 ==
LOC: ED 09:07 → MEDTELE 15:33 → OBSVTOIN 07-04 15:12
PROVIDERS: ADMIT Internal Medicine; ATTEND Internal Medicine
DX: I21.4 Non-ST elevation (NSTEMI) myocardial infarction (principal); Z68.41 Body mass index [BMI] 40.0-44.9, adult; J45.909 Unspecified asthma, uncomplicated; K21.9 Gastro-esophageal reflux disease without esophagitis; F41.9 Anxiety disorder, unspecified; I10 Essential (primary) hypertension; F32.9 Major depressive disorder, single episode, unspecified; R40.2142 Coma scale, eyes open, spontaneous, at arrival to emergency department; R40.2362 Coma scale, best motor response, obeys commands, at arrival to emergency department; R40.2252 Coma scale, best verbal response, oriented, at arrival to emergency department; I25.10 Atherosclerotic heart disease of native coronary artery without angina pectoris; E78.5 Hyperlipidemia, unspecified; E66.9 Obesity, unspecified; Z90.49 Acquired absence of other specified parts of digestive tract; Z98.51 Tubal ligation status; Z82.49 Family history of ischemic heart disease and other diseases of the circulatory system; Z83.3 Family history of diabetes mellitus; Z72.89 Other problems related to lifestyle; Z95.5 Presence of coronary angioplasty implant and graft; Z87.891 Personal history of nicotine dependence
CPT/HCPCS: 36415; 71045; 80053; 80061; 81003; 82550; 82553; 83036; 83605; 83874; 84443; 84484; 85025; 85610; 86850; 86900; 86901; 93005; 99285; A9270-GY; G0378; J1644; J1650

== ENCOUNTER 2018-07-23 15:50 | Emergency (ER) | payer OTHER ==
--- NOTE | 2018-07-23 16:44 | ED ---
HPI Chest Pain - HPI Summary HPI Summary: This patient is a 47 year old F presenting to [facility] with a chief complaint of pain at the site of a CABG performed two weeks ago. Pain rated 7/10 in severity , but has not worsened since the surgery. She reports yellow discharge from the wound after showering and a temperature of 99F at home. Patient denies any other symptoms at this time. - History of Current Complaint Chief Complaint: EDChestWallPain Time Seen by Provider: 07/23/18 16:24 Hx Obtained From: Patient Hx Last Menstrual Period: 10/22/17 Onset/Duration: Started Weeks Ago Timing: Constant Initial Severity: Moderate Current Severity: Moderate Pain Intensity: 7 Pain Scale Used: 0-10 Numeric Chest Pain Location: Mid Sternal Chest Pain Radiates: No Aggravating Factor(s): Nothing Alleviating Factor(s): Nothing Associated Signs and Symptoms: Positive: Negative, Fever - reports 99 - Additional Pertinent History Primary Care Physician: MARIEL - Allergy/Home Medications Allergies/Adverse Reactions: Allergies Allergy/AdvReac Type Severity Reaction Status Date / Time No Known Allergies Allergy Verified 04/09/18 06:34 PMH/Surg Hx/FS Hx/Imm Hx Endocrine/Hematology History: Denies: Hx Anticoagulant Therapy, Hx Diabetes, Hx Thyroid Disease Cardiovascular History: Reports: Hx Angina - 12/2013- STATES WAS ANXIETY RELATED , Hx Coronary Artery Disease, Other Cardiovascular Problems/Disorders - CABG Denies: Hx Hypercholesterolemia, Hx Hypertension, Hx Myocardial Infarction, Hx Pacemaker/ICD, Hx Valvular Heart Disease Respiratory History: Reports: Hx Asthma - PRN PROAIR, Other Respiratory Problems /Disorders - VOCAL CORD POLYPS Denies: Hx Chronic Obstructive Pulmonary Disease (COPD) GI History: Reports: Hx Gastroesophageal Reflux Disease - ROUTINE MEDICATION FOR Denies: Hx Ulcer History: Denies: Hx Renal Disease Sensory History: Reports: Hx Contacts or Glasses - GLASSES Denies: Hx Hearing Aid Opthamlomology History: Reports: Hx Contacts or Glasses - GLASSES Neurological History: Denies: Hx Dementia, Hx Seizures, Hx Spinal Cord Injury, Hx Transient Ischemic Attacks (TIA) Psychiatric History: Reports: Hx Anxiety - MEDICATION FOR, Hx Depression - MEDICATION FOR Denies: Hx Substance Abuse - Surgical History Surgery Procedure, Year, and Place: [place] [place] 16 [place] [facility] [place] from [place] [place] [place] CABG- [place] Hx Anesthesia Reactions: Yes - NAUSEA AND VOMITING Infectious Disease History: No Infectious Disease History: Denies: Hx Clostridium Difficile, Hx Hepatitis, Hx Human Immunodeficiency Virus (HIV), History Other Infectious Disease, Traveled Outside the US in Last 30 Days - Family History Known Family History: Positive: Hypertension, Diabetes - Social History Alcohol Use: Occasionally Hx Substance Use: Yes Substance Use Type: Reports: Prescribed Hx Tobacco Use: Yes Smoking Status (MU): Former Smoker Type: Cigarettes Amount Used/How Often: 1/4-1/ ppd X 20 YEARS Have You Smoked in the Last Year: Yes Review of Systems Positive: Fever - 99 per patient Positive: Chest Pain Positive: Other - oozing at surgical site All Other Systems Reviewed And Are Negative: Yes Physical Exam - Summary Physical Exam Summary: VITAL SIGNS: Reviewed. GENERAL: Patient is an obese female who is lying comfortable in the stretcher who is in no acute distress Patient is not in any acute respiratory distress. HEAD AND FACE: No signs of trauma. No ecchymosis, hematomas or skull depressions. No sinus tenderness. EYES: PERRLA, EOMI x 2, No injected conjunctiva, no nystagmus. EARS: Hearing grossly intact. Ear canals and tympanic membranes are within normal limits. MOUTH: Oropharynx within normal limits. NECK: Supple, trachea is midline, no adenopathy, no JVD, no carotid bruit, no c- spine tenderness, neck with full ROM. CHEST: Symmetric, no tenderness at palpation Wound is dry with mild erythema surrounding wound, no discharge, mild tenderness to palpation around incision LUNGS: Clear to auscultation bilaterally. No wheezing or crackles. CVS: Regular rate and rhythm, S1 and S2 present, no murmurs or gallops appreciated. ABDOMEN: Soft, non-tender. No signs of distention. No rebound no guarding, and no masses palpated. Bowel sounds are normal. EXTREMITIES: FROM in all major joints, no edema, no cyanosis or clubbing. NEURO: Alert and oriented x 3. No acute neurological deficits. Speech is normal and follows commands. SKIN: Dry and warm. Triage Information Reviewed: Yes Vital Signs On Initial Exam: Initial Vitals Temp Pulse Resp BP Pulse Ox 98.0 F 70 18 115/61 97 07/23/18 15:57 07/23/18 15:57 07/23/18 15:57 07/23/18 15:57 07/23/18 15:57 Vital Signs Reviewed: Yes Diagnostics - Vital Signs Vital Signs Temp Pulse Resp BP Pulse Ox 07/23/18 15:57 98.0 F 70 18 115/61 97 - Laboratory Result Diagrams: 07/23/18 17:00 07/23/18 17:00 Lab Statement: Any lab studies that have been ordered have been reviewed, and results considered in the medical decision making process. - Radiology CXR Radiology Interpretation Completed By: Radiologist Summary of Radiographic Findings: POSTSURGICAL CHANGES DESCRIBED ABOVE WITHOUT X-RAY APPARENT ACUTE CARDIOPULMONARY. ABNORMALITY. ED Physician has reviewed this report. - EKG 1606 Cardiac Rate: Bradycardia - 57 Bpm EKG Rhythm: Sinus Bradycardia EKG Comparison: No Significant Change - 07/04/18 Summary of EKG Findings: T wave inversion v2. no ST elevations. Chest Pain Course/Dx - Course Assessment/Plan: This patient is a 47 year old F presenting to [facility] with a chief complaint of pain at the site of a CABG performed two weeks ago. Pain rated 7/10 in severity, but has not worsened since the surgery. She reports yellow discharge from the wound after showering and a temperature of 99F at home. Patient denies any other symptoms at this time. Blood test results shows an slight anemia with a hemoglobin 8.8 and hematocrit 27 possibly secondary to her open heart surgery. CRP is only 11 possibly can secondary to her open heart surgery. Since there is no significant discharge from the wound and the wound looks clean dry and intact the patient will be discharged home with follow -up with her thoracic surgeon. However, the patient was giving a specific instructions that if she develops any fever, the wound is having any type of discharge and is opening she immediately should return to the restroom for further workup and management. The patient understands and agrees. - Diagnoses Provider Diagnoses: Atypical chest pain Discharge - Sign-Out/Discharge Documenting (check all that apply): Patient Departure - discharge Patient Received Moderate/Deep Sedation with Procedure: No - Discharge Plan Condition: Stable Disposition: HOME Patient Education Materials: Chest Pain (ED), Surgical Site Infections (ED) Referrals: Enmanuel Brar MD [Primary Care Provider] - 2 Days Additional Instructions: RETURN TO THE EMERGENCY DEPARTMENT FOR CHANGING OR WORSENING SYMPTOMS. - Billing Disposition and Condition Condition: STABLE Disposition: Home - Attestation Statements Document Initiated by Scribe: Yes Documenting Scribe: Brittni Garcia Provider For Whom Scribe is Documenting (Include Credential): Kyaw Sahni MD Scribe Attestation: I, Brittni Garcia, scribed for Kyaw Sahni MD on 07/23/18 at 1858. Scribe Documentation Reviewed: Yes Provider Attestation: The documentation as recorded by the cassieibe, Brittni Garcia accurately reflects the service I personally performed and the decisions made by me, Kyaw Sahni MD Status of Scribe Document: Viewed
[2018-07-23 17:11] LABS: ABS Basophils 0.1 10^3/ul (0-0.2); ABS Eosinophils 0.4 10^3/ul (0-0.6); ABS Lymphocytes 1.6 10^3/ul (1.0-4.8); ABS Monocytes 0.3 10^3/ul (0-0.8); ABS Neutrophils 2.9 10^3/ul (1.5-7.7); Hematocrit 27 % (35-47); Hemoglobin 8.8 g/dL (12.0-16.0); Lymphocyte % 29.9 %; Mean Corpuscular HGB Conc 33 g/dL (31-36); Mean Corpuscular Hemoglobin 27 pg (27-31); Mean Corpuscular Volume 81 fL (80-97); Mean Platelet Volume 7.4 fL (7.4-10.4); Nucleated Red Blood Cells % 0.2; Platelet Count 385 10^3/uL (150-450); Red Blood Count 3.27 10^6 /uL (3.70-4.87); Red Cell Distribution Width 15 % (10.5-15); White Blood Count 5.3 10^3/uL (3.5-10.8)
[2018-07-23 17:28] LABS: Albumin 3.4 g/dL (3.2-5.2); Albumin/Globulin Ratio 1.2 (1-3); BUN/Creatinine Ratio 11.6 (8-20); C Reactive Protein 11.04 mg/L (<8.01); Calcium 8.6 mg/dL (8.6-10.3); EGFR African American 110.3 (>60); EGFR Non-African American 91.2 (>60); Globulin 2.8 g/dL (2-4); Potassium 3.6 mmol/L (3.5-5.0); Total Bilirubin 0.3 mg/dL (0.2-1.0); Total Protein 6.2 g/dL (6.4-8.9)
[2018-07-23 18:31] VITALS: BP 132/94
== END 2018-07-23 18:29 | disposition home or self-care (01) ==
LOC: ED 15:50
DX: R07.89 Other chest pain (principal); R50.9 Fever, unspecified; K21.9 Gastro-esophageal reflux disease without esophagitis; Z87.891 Personal history of nicotine dependence
CPT/HCPCS: 36415; 71046; 80053; 82550; 85025; 86140; 87070; 87205; 87640; 87641; 93005; 99283

== ENCOUNTER 2018-09-30 06:35 | Emergency (ER) | payer OTHER ==
--- OUTSIDE RECORDS SUMMARY | 2018-09-30 07:27 | XMS REPORT | Continuity of Care Document ---
:1970 External Reference #:[id number] Author Name Jayne Kovacs Care Team Providers Name Role Phone Enmanuel Brar MD Primary Care Physician Unavailable Payers Date Identification Numbers Payment Provider Subscriber Policy Number: [id number] Tanvir Casillas PayID: [id number] [address] [place] [address] Expires: 2018 Policy Number: [id number] [employer] Inga Casillas PayID: [id number] [address] [address] [place] [address] Problems Active Problems Provider Date Sprain of knee and leg Annmarie Jacques MD Onset: 09/08/2018 Knee joint effusion Annmarie Jacques MD Onset: 09/08/2018 Family History Date Family Member(s) Observation Comments General Diabetes General Heart Disease General Hypertension General Stroke General Cancer Social History Type Date Description Comments Sex Unknown Marital Status Single Lives With Male Partner Occupation Unemployed ETOH Use Denies alcohol use Tobacco Use Start: Unknown End: Patient is a former quit 4 months ago Unknown smoker Recreational Drug Use Denies Drug Use Smoking Status Reviewed: 09/08/18 Patient is a former quit 4 months ago smoker Exercise Type/Frequency Exercises regularly walking daily Allergies, Adverse Reactions, Alerts Description No Known Drug Allergies Medications Active Medications SIG Qnty Indications Ordering Provider Date Fexofenadine HCL 1 by mouth every Unknown 180mg day Tablets Pantoprazole Sodium 1 by mouth every Unknown 40mg day Tablets DR Gabapentin 1 by mouth three Unknown 300mg Capsules times a day Aspir-Low 1 by mouth every Unknown 81mg Tablets DR day Atorvastatin Calcium 1 by mouth every Unknown 80mg day Tablets Brilinta 1 tab by mouth Unknown 90mg Tablets twice a day Alprazolam 1 tab as needed Unknown 0.25mg Tablets Fluoxetine HCL 1 by mouth every Unknown 60mg Tablets day Metoprolol Succinate ER 1 by mouth every Unknown day 50mg Tablets ER 24HR Amlodipine Besylate 1 by mouth every Unknown 5mg day Tablets Isosorbide Mononitrate 1 by mouth every Unknown ER day 60mg Tablets ER 24HR History Medications Nitroglycerin 1 patch 12 hours on Unknown - 09/07/2018 0.4mg/HR Patches 24HR and 12 hours off Vital Signs Date Vital Result Comment 09/08/2018 11:16am Height 65 inches 5'5" Weight 242.00 lb BP Systolic 124 mmHg BP Diastolic 70 mmHg Respiratory Rate 18 /min Pain Level 10 BMI (Body Mass Index) 40.3 kg/m2 08/02/2018 9:40am Height 65 inches 5'5" Weight 242.00 lb per pt at home w/o shoes/clothes BP Systolic Sitting 112 mmHg Lue lg cuff BP Diastolic Sitting 68 mmHg Lue lg cuff BP Systolic Standing 108 mmHg Lue lg cuff BP Diastolic Standing 66 mmHg Lue lg cuff Respiratory Rate 17 /min BMI (Body Mass Index) 40.3 kg/m2 Procedures Date Code Description Status 08/02/2018 65859 EKG Tracing & Interpretation Completed 04/11/2018 62501 EKG, Interpretation Only Completed 04/10/2018 64734 Cath PLMT&NJX L Ventriculog Img S&I Completed 04/10/2018 29170 ECHO Transthorasic Realtime 2D W Doppler & Color Flow Hosp Completed 04/10/2018 04766 Treadmill Interp/Report Only Completed 04/10/2018 58933 Stress Test Supervsn W/Out I/R Completed 04/10/2018 53442 EKG, Interpretation Only Completed 04/09/2018 61537 EKG, Interpretation Only Completed 12/29/2013 48613 EKG, Interpretation Only Completed 12/28/2013 37700 Treadmill Interp/Report Only Completed 12/28/2013 14830 Stress Test Supervsn W/Out I/R Completed 12/28/2013 03065 EKG, Interpretation Only Completed Encounters Type Date Location Provider Dx Diagnosis Office Visit 09/08/2018 Orthopedic Annmarie Jacques MD M25.461 Effusion, right 11:00a [facility] knee S83.91xA Sprain of unspecified site of right knee, initial encounter Office Visit 08/02/2018 9:45a [facility] Rodger Wilkes I10 Essential (primary) Of Jurgen Dover M.D. hypertension I25.10 Athscl heart disease of [place] coronary artery w/o ang pctrs Z98.61 Coronary angioplasty status Office Visit 07/04/2018 9:54a [facility] Vesta Simons, I21.4 Non-St elevation Assoc,pc N.P. ([facility]) Hospitalists myocardial infarction E78.5 Hyperlipidemia, unspecified I10 Essential (primary) hypertension Office Visit 07/03/2018 [facility] Flor R07.9 Chest pain, 9:53a Assoc,pc JANENE Garcia unspecified Hospitalists E78.5 Hyperlipidemia, unspecified K21.9 Gastro-esophageal reflux disease without esophagitis J45.909 Unspecified asthma, uncomplicated F41.9 Anxiety disorder, unspecified Z87.891 Personal history of nicotine dependence Office Visit 07/03/2018 2:14p [facility] Rodger Wilkes I21.4 Non-St elevation Of Jurgen Dover M.D. ([facility]) myocardial infarction I25.10 Athscl heart disease of [place] coronary artery w/o ang pctrs Office Visit 04/11/2018 8:50a [facility] Cristian Mccullough MD I21.4 Non-St elevation Assoc,pc ([facility]) Hospitalists myocardial infarction Office Visit 04/11/2018 12:54p [facility] Rodger Wilkes I25.10 Athscl heart Of Jurgen Dover M.D. disease of [place] coronary artery w/o ang pctrs Office Visit 04/10/2018 8:49a [facility] Cristian Mccullough MD I21.4 Non-St elevation Assoc,pc ([facility]) Hospitalists myocardial infarction E78.5 Hyperlipidemia, unspecified I25.10 Athscl heart disease of [place] coronary artery w/o ang pctrs I10 Essential (primary) hypertension Office Visit 04/10/2018 2:35p [facility] Rodger Wilkes I25.10 Athscl heart Of Jurgen Dover M.D. disease of [place] coronary artery w/o ang pctrs R07.9 Chest pain, unspecified R94.39 Abnormal result of other cardiovascular function study Office Visit 04/09/2018 8:49a [facility] Cristian Mccullough, R07.9 Chest pain, Assoc,pc unspecified Hospitalists R06.02 Shortness of breath M79.602 Pain in left arm Office Visit 12/29/2013 4:10p [facility] Rohan Mckeon, 786.50 Pain Chest Assoc,blaze Wade Unspec Hospitalists 784.42 Dysphonia 305.1 Tobacco Use Disorder Office Visit 12/28/2013 [facility] Mitch Kern, 786.05 Shortness Of 12:11p M.D. Breath Office Visit 12/28/2013 [facility] Manuel Walls 786.50 Pain Chest 4:09p Assoc,pc JUAN, MMaye Unspec Hospitalists 784.42 Dysphonia 305.1 Tobacco Use Disorder Plan of Treatment Future Appointment(s):10/04/2018 8:15 am - Rodger Dover M.D. at [facility]09/22/2018 9:30 am - Rodger Dover M.D. at [facility]09/08/2018 - Annmarie Georgie, MDM25.461 Effusion, right kneeS83.91xA Sprain of unspecified site of right knee, initial encounterNew Xrays:MRI Knee Right W/O, Ordered: 09/08/18Follow up:Follow up: after MRI
[2018-09-30 08:12] VITALS: BP 101/85
--- NOTE | 2018-10-01 06:32 | ED ---
Lower Extremity - HPI Summary HPI Summary: Pt. is a 47 y.o female who presents to the ER for worsening right knee pain. Pt. states about 4 weeks ago she fell onto her right knee and has been having pain since. Pt. recently had outpt. MRI of knee per PCP. Pt. has an apt. with ortho next week. Pt. has been taking tylenol and motrin without relief. Pt. denies any new injuries. Pt. states knee pain was too severe to sleep last night. Otherwise denies fever, cp, sob, leg swelling. sxs are mild in severity. - History of Current Complaint Chief Complaint: EDExtremityLower Stated Complaint: RIGHT KNEE PAIN PER PT Time Seen by Provider: 09/30/18 07:13 Hx Obtained From: Patient Hx Last Menstrual Period: 10/22/17 Pain Intensity: 10 Pain Scale Used: 0-10 Numeric - Allergies/Home Medications Allergies/Adverse Reactions: Allergies Allergy/AdvReac Type Severity Reaction Status Date / Time No Known Allergies Allergy Verified 09/30/18 06:46 PMH/Surg Hx/FS Hx/Imm Hx Previously Healthy: Yes Endocrine/Hematology History: Denies: Hx Anticoagulant Therapy, Hx Diabetes, Hx Thyroid Disease Cardiovascular History: Reports: Hx Angina - 12/2013- STATES WAS ANXIETY RELATED , Hx Coronary Artery Disease, Other Cardiovascular Problems/Disorders - CABG Denies: Hx Hypercholesterolemia, Hx Hypertension, Hx Myocardial Infarction, Hx Pacemaker/ICD, Hx Valvular Heart Disease Respiratory History: Reports: Hx Asthma - PRN PROAIR, Other Respiratory Problems /Disorders - VOCAL CORD POLYPS Denies: Hx Chronic Obstructive Pulmonary Disease (COPD) GI History: Reports: Hx Gastroesophageal Reflux Disease - ROUTINE MEDICATION FOR Denies: Hx Ulcer History: Denies: Hx Renal Disease Sensory History: Reports: Hx Contacts or Glasses - GLASSES Denies: Hx Hearing Aid Opthamlomology History: Reports: Hx Contacts or Glasses - GLASSES Neurological History: Denies: Hx Dementia, Hx Seizures, Hx Spinal Cord Injury, Hx Transient Ischemic Attacks (TIA) Psychiatric History: Reports: Hx Anxiety - MEDICATION FOR, Hx Depression - MEDICATION FOR Denies: Hx Panic Disorder, Hx Substance Abuse - Surgical History Surgery Procedure, Year, and Place: tubal ligation[place] [place]. breast reduction-AGE 16 - [facility] [place] cyst removed from thumb[place] [place]. [place]olecystectomy[place] [place]. 06/2018 - CABG- [facility] [place] Hx Anesthesia Reactions: Yes - NAUSEA AND VOMITING Infectious Disease History: No Infectious Disease History: Denies: Hx Clostridium Difficile, Hx Hepatitis, Hx Human Immunodeficiency Virus (HIV), History Other Infectious Disease, Traveled Outside the [place] in Last 30 Days - Family History Known Family History: Positive: Hypertension, Diabetes, Non-Contributory - Social History Occupation: Unemployed Lives: With Family Alcohol Use: None Hx Substance Use: Yes Substance Use Type: Reports: None Hx Tobacco Use: Yes Smoking Status (MU): Former Smoker Type: Cigarettes Amount Used/How Often: 1/-1/ ppd X 20 YEARS Have You Smoked in the Last Year: Yes Review of Systems Constitutional: Negative Negative: Fever Cardiovascular: Negative Respiratory: Negative Positive: Other - right knee pain Skin: Negative Neurological: Negative All Other Systems Reviewed And Are Negative: Yes Physical Exam Triage Information Reviewed: Yes Vital Signs On Initial Exam: Initial Vitals Temp Pulse Resp BP Pulse Ox 98.4 F 71 18 112/79 96 09/30/18 06:43 09/30/18 06:43 09/30/18 06:43 09/30/18 06:43 09/30/18 06:43 Vital Signs Reviewed: Yes Appearance: Positive: Well-Appearing - Pt. lying in bed in NAD. present. Obese. Skin: Positive: Warm, Dry Head/Face: Positive: Normal Head/Face Inspection Eyes: Positive: Normal, EOMI Neck: Positive: Supple Musculoskeletal: Positive: Other - Effusion noted to right knee. Able to flex and extend with pain. No overlying erythema or increased warmth. No calf swelling or pain. Good pedal pulse. Neurological: Positive: Normal, CN Intact II-III Psychiatric: Positive: Affect/Mood Appropriate Diagnostics - Vital Signs Vital Signs Temp Pulse Resp BP Pulse Ox 09/30/18 08:11 98.3 F 71 20 101/85 98 09/30/18 06:43 98.4 F 71 18 112/79 96 - Laboratory Lab Statement: Any lab studies that have been ordered have been reviewed, and results considered in the medical decision making process. Lower Extremity Course/Dx - Course Assessment/Plan: Knee MRI from last week shows large effusion and degenerative changes per radiology. Will rx a few days of pain medication. NURSE ADMINISTRATOR reviewed. Advised to continue clare wrap, ice and elevation. Will f.u with ortho as scheduled for further care. Pt. understands and agrees with plan. - Diagnoses Differential Diagnosis/HQI/PQRI: Positive: Fracture (Closed), Gout, Sprain, Strain Provider Diagnoses: Knee effusion Discharge - Sign-Out/Discharge Documenting (check all that apply): Patient Departure Patient Received Moderate/Deep Sedation with Procedure: No - Discharge Plan Condition: Good Disposition: HOME Prescriptions: Hydrocodone/Acetaminophen [Hydrocodone-Acetamin 5-325 mg] 1 each PO Q6H #12 tablet MDD 4 Patient Education Materials: Swollen Knee Joint (ED) Referrals: Enmanuel Brar MD [Primary Care Provider] - Annmarie Jacques MD [Medical Doctor] - Additional Instructions: Follow up with Dr. Jacques next week as scheduled Continue ice, elevation, and wrap Pain medication as directed Return to ER if symptoms change or worsen - Billing Disposition and Condition Condition: GOOD Disposition: Home
== END 2018-09-30 08:11 | disposition home or self-care (01) ==
LOC: ED 06:35
DX: M25.461 Effusion, right knee (principal); J45.909 Unspecified asthma, uncomplicated; K21.9 Gastro-esophageal reflux disease without esophagitis; F41.9 Anxiety disorder, unspecified; F32.9 Major depressive disorder, single episode, unspecified; Z87.891 Personal history of nicotine dependence; Z79.899 Other long term (current) drug therapy
CPT/HCPCS: 99282

== ENCOUNTER 2018-10-29 10:19 | Emergency (ER) | payer OTHER ==
--- OUTSIDE RECORDS SUMMARY | 2018-10-29 10:32 | XMS REPORT | Continuity of Care Document ---
:1970 External Reference #:[id number] Author Name Rodger Dover M.D. (transmitted by agent of provider Dana Kovacs) Address [address] [place] [id number] Care Team Providers Name Role Phone Enmanuel Brar MD - Internal Care Team Information Tool Smith Medicine Problems Active Problems Provider Date Knee joint effusion Annmarie Jacques MD Onset: 09/08/2018 Sprain of knee and leg Annmarie Jacques MD Onset: 09/08/2018 Social History Type Date Description Comments Sex Unknown ETOH Use Denies alcohol use Tobacco Use Start: Unknown End: Patient is a former quit 4 months ago Unknown smoker Recreational Drug Use Denies Drug Use Smoking Status Reviewed: 10/04/18 Patient is a former quit 4 months [...] Unknown ER day 60mg Tablets ER 24HR Medications Administered in Office Medication SIG Qnty Indications Ordering Provider Date Inj, Regadenoson, 0.1 MG Rodger Dover M.D. 09/22/2018 Injection Technetium TC 99M TetrofosmRodger rodríguez M.D. 09/22/2018 Per Unit Dose Up To 40 Millicuries Injection Technetium TC 99M TetrofosminRodger M.D. 09/22/2018 Per Unit Dose Up To 40 Millicuries Injection Immunizations Description No Information Available Vital Signs Date Vital Result Comment 10/04/2018 8:20am Height 65 inches 5'5" Weight 234.00 lb with shoes Heart Rate 66 /min BP Systolic Sitting 125 mmHg Lue BP Diastolic Sitting 70 mmHg Lue BP Systolic Standing 130 mmHg Lue BP Diastolic Standing 72 mmHg Lue BMI (Body Mass Index) 38.9 kg/m2 Ejection Fraction 55-60% Echo 04/10/18 09/08/2018 11:16am Height 65 inches 5'5" Weight 242.00 lb BP Systolic 124 mmHg BP Diastolic 70 mmHg Respiratory Rate 18 /min Pain Level 10 BMI (Body Mass Index) 40.3 kg/m2 Results Description No Information Available Procedures Date Code Description Status 09/22/2018 71654 Stress Test Completed 09/22/2018 73821 Myocardial Perfusion Imaging Tomographic (Spect) Multiple Completed Studies 08/02/2018 15083 EKG Tracing & Interpretation Completed 07/04/2018 76230 EKG, Interpretation Only Completed 04/11/2018 71437 EKG, Interpretation Only Completed 04/10/2018 84312 Cath PLMT&NJX L Ventriculog Img S&I Completed 04/10/2018 73290 ECHO Transthorasic Realtime 2D W Doppler & Color Flow Hosp Completed 04/10/2018 15321 Treadmill Interp/Report Only Completed 04/10/2018 40368 Stress Test Supervsn W/Out I/R Completed 04/10/2018 94384 EKG, Interpretation Only Completed 04/09/2018 34081 EKG, Interpretation Only Completed Medical Devices Description No Information Available Encounters Type Date Location Provider Dx Diagnosis Office Visit 09/08/2018 [facility] Annmarie Jacques MD M25.461 Effusion, right 11:00a [facility] knee S83.91xA Sprain of unspecified site of right knee, initial encounter M25.562 Pain in left knee M25.462 Effusion, left knee Office Visit 08/02/2018 9:45a [facility] Rodger Wilkes I10 Essential (primary) Of Jurgen Dover M.D. hypertension I25.10 Athscl heart disease of [place] coronary artery w/o ang pctrs Z98.61 Coronary angioplasty status Office Visit 07/04/2018 9:54a [facility] Vesta Simons, I21.4 Non-St elevation Assoc,pc N.P. ([facility]) Hospitalists myocardial infarction E78.5 Hyperlipidemia, unspecified I10 Essential (primary) hypertension Office Visit 07/03/2018 [facility] Flor R07.9 Chest pain, 9:53a Assoc,pc JANENE Garcia unspecified Hospitalists E78.5 Hyperlipidemia, unspecified K21.9 Gastro-esophageal reflux disease without esophagitis J45.909 Unspecified asthma, uncomplicated F41.9 Anxiety disorder, unspecified Z87.891 Personal history of nicotine dependence Office Visit 07/03/2018 2:14p [facility] Rodger Wilkes I21.4 Non-St elevation Of Jurgen Dover M.D. ([facility]) myocardial infarction I25.10 Athscl heart disease of [place] coronary artery w/o ang pctrs Office Visit 04/11/2018 8:50a [facility] Cristian Mccullough MD I21.4 Non-St elevation Assoc,pc ([facility]) Hospitalists myocardial infarction Office Visit 04/11/2018 12:54p [facility] Rodger Wilkes I25.10 Athscl heart Of Jurgen Dover M.D. disease of [place] coronary artery w/o ang pctrs Office Visit 04/10/2018 8:49a [facility] Cristian Mccullough MD I21.4 Non-St elevation Assoc,pc ([facility]) Hospitalists myocardial infarction E78.5 Hyperlipidemia, unspecified I25.10 Athscl heart disease of [place] coronary artery w/o ang pctrs I10 Essential (primary) hypertension Office Visit 04/10/2018 2:35p [facility] Rodger Wilkes I25.10 Athscl heart Of Jurgen Dover M.D. 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 08/02/2018 I25.10 Atherosclerotic heart disease of Rodger Dover M.D. [place] coronary artery with 08/02/2018 Z98.61 Coronary angioplasty status Rodger Dover M.D. 07/04/2018 R07.9 Chest pain, unspecified Julian Dash M.D. 07/04/2018 I21.4 Non-St elevation ([facility]) myocardial Vesta Simons, N.P. infarction 07/04/2018 E78.5 Hyperlipidemia, unspecified Vesta Simons, N.P. 07/04/2018 I10 Essential (primary) hypertension Vesta Simons, N.P. 07/03/2018 R07.9 Chest pain, unspecified Flor Garcia, PRICER 07/03/2018 I21.4 Non-St elevation ([facility]) myocardial Rodger Dover M.D. infarction 07/03/2018 E78.5 Hyperlipidemia, unspecified Flor Garcia, PRICER 07/03/2018 I25.10 Atherosclerotic heart disease of Rodger Dover M.D. [place] coronary artery with 07/03/2018 K21.9 Gastro-esophageal reflux disease Flor Garcia, PRICER without esophagitis 07/03/2018 J45.909 Unspecified asthma, uncomplicated Flor Garcia, PRICER 07/03/2018 F41.9 Anxiety disorder, unspecified Flor Garcia, PRICER 07/03/2018 Z87.891 Personal history of nicotine Flor Garcia, PRICER dependence 04/11/2018 R07.89 Other chest pain Ted Werner DO [facility] 04/11/2018 I21.4 Non-St elevation ([facility]) myocardial Cristian Mccullough MD infarction 04/11/2018 I25.10 Atherosclerotic heart disease of Rodger Dover M.D. [place] coronary artery with 04/10/2018 I21.4 Non-St elevation ([facility]) myocardial Ted Werner DO [facility]ACC infarction 04/10/2018 I21.4 Non-St elevation ([facility]) myocardial Cristian Mccullough MD infarction 04/10/2018 R07.9 Chest pain, unspecified Raf Stein MD, [facility] 04/10/2018 E78.5 Hyperlipidemia, unspecified Cristian Mccullough MD 04/10/2018 I25.10 Atherosclerotic heart disease of Rodger Dover M.D. [place] coronary artery with 04/10/2018 I25.10 Athscl heart disease of [place] Cristian Mccullough MD coronary artery w/o ang pctrs 04/10/2018 R07.9 Chest pain, unspecified Rodger Dover M.D. 04/10/2018 I10 Essential (primary) hypertension Cristian Mccullough MD 04/10/2018 R94.39 Abnormal result of other Rodger Dover M.D. cardiovascular function study 04/09/2018 R94.31 Abnormal electrocardiogram [ECG] Ted Werner DO [facility] [EKG] 04/09/2018 R07.9 Chest pain, unspecified Cristian Mccullough MD 04/09/2018 R06.02 Shortness of breath Cristian Mccullough MD 04/09/2018 M79.602 Pain in left arm Cristian Mccullough MD Plan of Treatment Future Appointment(s):10/06/2018 8:30 am - [facility]10/04/2018 - Rodger Dover M.D.I25.10 Atherosclerotic heart disease of [place] coronary artery without angina pectorisFollow up:6 months Functional Status Description No Information Available Mental Status Description No Information Available Referrals Description No Information Available
--- OUTSIDE RECORDS SUMMARY | 2018-10-29 10:32 | XMS REPORT | Continuity of Care Document ---
:1970 External Reference #:[id number] Author Name Annmarie Jacques MD (transmitted by agent of provider Chetna Nair) Address [address] [place] [address], [facility] [place] [address] Care Team Providers Name Role Phone Enmanuel Brar MD - Internal Care Team Information Line Tester Medicine Problems Active Problems Provider Date Knee joint effusion Annmarie Jacques MD Onset: 09/08/2018 Sprain of knee and leg Annmarie Jacques MD Onset: 09/08/2018 Social History Type Date Description Comments Sex Unknown ETOH Use Denies alcohol use Tobacco Use Start: Unknown End: Patient is a former quit 4 months ago Unknown smoker Recreational Drug Use Denies Drug Use Smoking Status Reviewed: 10/06/18 Patient is a former quit 4 months [...] Dover M.D. 09/22/2018 Injection Technetium TC 99M Tetrofosmin, Rodger Dover M.D. 09/22/2018 Per Unit Dose Up To 40 Millicuries Injection Technetium TC 99M TetrofosminRodger M.D. 09/22/2018 Per Unit Dose Up To 40 Millicuries Injection Immunizations Description No Information Available Vital Signs Date Vital Result Comment 10/06/2018 8:14am Height 65 inches 5'5" Weight 242.00 lb BP Systolic 124 mmHg BP Diastolic 78 mmHg Respiratory Rate 18 /min Pain Level 10 BMI (Body Mass Index) 40.3 kg/m2 10/04/2018 8:20am Height 65 inches 5'5" Weight 234.00 lb with shoes Heart Rate 66 /min BP Systolic Sitting 125 mmHg Lue BP Diastolic Sitting 70 mmHg Lue BP Systolic Standing 130 mmHg Lue BP Diastolic Standing 72 mmHg Lue BMI (Body Mass Index) 38.9 kg/m2 Ejection Fraction 55-60% Echo 04/10/18 Results Description No Information Available Procedures Date Code Description Status 09/22/2018 94140 Stress Test Completed 09/22/2018 66072 Myocardial Perfusion Imaging Tomographic (Spect) Multiple Completed Studies 08/02/2018 55464 EKG Tracing & Interpretation Completed 07/04/2018 24354 EKG, Interpretation Only Completed 04/11/2018 96564 EKG, Interpretation Only Completed 04/10/2018 34721 Cath PLMT&NJX L Ventriculog Img S&I Completed 04/10/2018 15947 ECHO Transthorasic Realtime 2D W Doppler & Color Flow Hosp Completed 04/10/2018 48504 Treadmill Interp/Report Only Completed 04/10/2018 04651 Stress Test Supervsn W/Out I/R Completed 04/10/2018 74697 EKG, Interpretation Only Completed 04/09/2018 42592 EKG, Interpretation Only Completed Medical Devices Description No Information Available Encounters Type Date Location Provider Dx Diagnosis Office Visit 09/08/2018 Orth[facility] Annmarie Jacques MD M25.461 Effusion, right 11:00a [facility] knee S83.91xA Sprain of unspecified site of right knee, initial encounter M25.562 Pain in left knee M25.462 Effusion, left knee Office Visit 08/02/2018 9:45a [facility] Rodger Wilkes I10 Essential (primary) Of Jurgen Dover M.D. hypertension I25.10 Athscl heart disease of [place] coronary artery w/o ang pctrs Z98.61 Coronary angioplasty status Office Visit 07/04/2018 9:54a [facility] Vesta Simons, I21.4 Non-St elevation Assoc,pc N.P. ([facility]) Hospitalists myocardial infarction E78.5 Hyperlipidemia, unspecified I10 Essential (primary) hypertension Office Visit 07/03/2018 [facility] Flor R07.9 Chest pain, 9:53a Assoc,pc JANENE Garcia unspecified Hospitalists E78.5 Hyperlipidemia, unspecified K21.9 Gastro-esophageal reflux disease without esophagitis J45.909 Unspecified asthma, uncomplicated F41.9 Anxiety disorder, unspecified Z87.891 Personal history of nicotine dependence Office Visit 07/03/2018 2:14p [facility] Rodger Wilkes I21.4 Non-St elevation Of Jurgen Dover M.D. ([facility]) myocardial infarction I25.10 Athscl heart disease of [place] coronary artery w/o ang pctrs Office Visit 04/11/2018 8:50a [facility] Cristian Mccullough MD I21.4 Non-St elevation Assoc,pc ([facility]) Hospitalists myocardial infarction Office Visit 04/11/2018 12:54p [facility] Rodger Wilkes I25.10 Athscl heart Of Jurgen Dover M.D. disease of [place] coronary artery w/o ang pctrs Office Visit 04/10/2018 8:49a [facility] Cristian Mccullough MD I21.4 Non-St elevation Assoc,pc ([facility]) Hospitalists myocardial infarction E78.5 Hyperlipidemia, unspecified I25.10 Athscl heart disease of [place] coronary artery w/o ang pctrs I10 Essential (primary) hypertension Office Visit 04/10/2018 2:35p [facility] Rodger Wilkes I25.10 Athscl heart Of Jurgen Dover M.D. 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 08/02/2018 I25.10 Atherosclerotic heart disease of Rodger Dover M.D. [place] coronary artery with 08/02/2018 Z98.61 Coronary angioplasty status Rodger Dover M.D. 07/04/2018 R07.9 Chest pain, unspecified Julian Dash M.D. 07/04/2018 I21.4 Non-St elevation ([facility]stemi) myocardial Vesta Simons, N.P. infarction 07/04/2018 E78.5 Hyperlipidemia, unspecified Vesta Simons, N.P. 07/04/2018 I10 Essential (primary) hypertension Vesta Simons, N.P. 07/03/2018 R07.9 Chest pain, unspecified Flor Radha, [employer] 07/03/2018 I21.4 Non-St elevation ([facility]stemi) myocardial Rodger Dover M.D. infarction 07/03/2018 E78.5 Hyperlipidemia, unspecified Flor Garcia, [employer] 07/03/2018 I25.10 Atherosclerotic heart disease of Rodger Dover M.D. [place] coronary artery with 07/03/2018 K21.9 Gastro-esophageal reflux disease Flor Garcia, [employer] without esophagitis 07/03/2018 J45.909 Unspecified asthma, uncomplicated Flor Garcia, [employer] 07/03/2018 F41.9 Anxiety disorder, unspecified Flor Cheraw, [employer] 07/03/2018 Z87.891 Personal history of nicotine Flor Garcia, [employer] dependence 04/11/2018 R07.89 Other chest pain Ted Werner DO [facility] 04/11/2018 I21.4 Non-St elevation ([facility]stemi) myocardial Cristian Mccullough MD infarction 04/11/2018 I25.10 Atherosclerotic heart disease of Rodger Dover M.D. [place] coronary artery with 04/10/2018 I21.4 Non-St elevation ([facility]stemi) myocardial Ted Werner DO [facility] infarction 04/10/2018 I21.4 Non-St elevation (Nstemi) myocardial Cristian Mccullough MD infarction 04/10/2018 R07.9 Chest pain, unspecified Raf Stein MD, [facility], [facility] 04/10/2018 E78.5 Hyperlipidemia, unspecified Cristian Mccullough MD 04/10/2018 I25.10 Atherosclerotic heart disease of Rodger Dover M.D. [place] coronary artery with 04/10/2018 I25.10 Athscl heart disease of [place] Cristian Mccullough MD coronary artery w/o ang pctrs 04/10/2018 R07.9 Chest pain, unspecified Rodger Dover M.D. 04/10/2018 I10 Essential (primary) hypertension Cristian Mccullough MD 04/10/2018 R94.39 Abnormal result of other Rodger Dover M.D. cardiovascular function study 04/09/2018 R94.31 Abnormal electrocardiogram [ECG] Ted Werner DO [facility] [EKG] 04/09/2018 R07.9 Chest pain, unspecified Cristian Mccullough MD 04/09/2018 R06.02 Shortness of breath Cristian Mccullough MD 04/09/2018 M79.602 Pain in left arm Cristian Mccullough MD Plan of Treatment 10/06/2018 - Annmarie Jacques, MDM25.461 Effusion, right kneeFollow up:As [id number] Unilateral primary osteoarthritis, right knee Functional Status Description No Information Available Mental Status Description No Information Available Referrals Description No Information Available
[2018-10-29] MEDS ORDERED: oxyCODONE/Acetamin 5/325 MG* TAB PO ONE (10:47)
--- NOTE | 2018-10-29 10:51 | ED ---
Complex/Multi-Sys Presentation - HPI Summary HPI Summary: This patient is a 47 year old F presenting to ED with a chief complaint of body aches since 09/29/18. Patient was diagnosed with Lyme disease and completed doxycycline (three week treatment) yesterday. Patient was referred to Dr. Ayers for follow-up care, but has been unable to schedule an appointment. Patient stated Tylenol has not helped with her body aches and pains. She reports edema and being unable to walk 2/2 the pain. Patient had quadruple bypass in June and states her chest scar is sore. She feels that the wires are poking her. The patient rates the pain 10/10 in severity. Symptoms aggravated by nothing. Symptoms alleviated by nothing. - History Of Current Complaint Chief Complaint: EDGeneral Hx Obtained From: Patient Onset/Duration: Lasting Weeks - 3 weeks ago, Still Present Timing: Constant Severity Currently: Severe Severity Initially: Severe Location: Pain At: - Everywhere Aggravating Factor(s): Nothing Alleviating Factor(s): Nothing Associated Signs And Symptoms: Positive: Other - Body aches - Allergies/Home Medications Allergies/Adverse Reactions: Allergies Allergy/AdvReac Type Severity Reaction Status Date / Time No Known Allergies Allergy Verified 09/30/18 06:46 PMH/Surg Hx/FS Hx/Imm Hx Previously Healthy: No Endocrine/Hematology History: Denies: Hx Anticoagulant Therapy, Hx Diabetes, Hx Thyroid Disease Cardiovascular History: Reports: Hx Angina - 12/2013- STATES WAS ANXIETY RELATED , Hx Coronary Artery Disease, Hx Hypertension, Other Cardiovascular Problems/ Disorders - CABG Denies: Hx Hypercholesterolemia, Hx Myocardial Infarction, Hx Pacemaker/ICD, Hx Valvular Heart Disease Respiratory History: Reports: Hx Asthma - PRN PROAIR, Other Respiratory Problems /Disorders - VOCAL CORD POLYPS Denies: Hx Chronic Obstructive Pulmonary Disease (COPD) GI History: Reports: Hx Gastroesophageal Reflux Disease - ROUTINE MEDICATION FOR Denies: Hx Ulcer History: Denies: Hx Renal Disease Sensory History: Reports: Hx Contacts or Glasses - GLASSES Denies: Hx Hearing Aid Opthamlomology History: Reports: Hx Contacts or Glasses - GLASSES Neurological History: Denies: Hx Dementia, Hx Seizures, Hx Spinal Cord Injury, Hx Transient Ischemic Attacks (TIA) Psychiatric History: Reports: Hx Anxiety - MEDICATION FOR, Hx Depression - MEDICATION FOR Denies: Hx Panic Disorder, Hx Substance Abuse - Surgical History Surgery Procedure, Year, and Place: tubal ligation-[facility]. breast reduction-AGE 16 - [facility]. cyst removed from thumb-[facility]. cholecystectomy-[facility]. 06/2018 - CABG- QUADRUPLE BYPASS [facility] Anesthesia Reactions: Yes - NAUSEA AND VOMITING Infectious Disease History: No Infectious Disease History: Denies: Hx Clostridium Difficile, Hx Hepatitis, Hx Human Immunodeficiency Virus (HIV), History Other Infectious Disease, Traveled Outside the [place] in Last 30 Days - Family History Known Family History: Positive: Hypertension, Diabetes - Social History Alcohol Use: None Hx Substance Use: No Substance Use Type: Reports: None Hx Tobacco Use: Yes Smoking Status (MU): Former Smoker Type: Cigarettes Amount Used/How Often: 1/-02/22 ppd X 20 YEARS Have You Smoked in the Last Year: Yes Review of Systems Positive: Chest Pain - Chest scar soreness Positive: Arthralgia, Myalgia, Edema All Other Systems Reviewed And Are Negative: Yes Physical Exam - Summary Physical Exam Summary: GENERAL: Patient is a well-developed and nourished F who is lying comfortable in the stretcher. Patient is not in any acute respiratory distress. HEAD AND FACE: Normocephalic EYES: PERRLA, EOMI x 2. EARS: Hearing grossly intact. MOUTH: Oropharynx within normal limits. NECK: Supple, trachea is midline, no adenopathy, no JVD, no carotid bruit. CHEST: Surgical incision in the chest is clean, dry, and intact. Minimal tenderness to palpation in the chest area. LUNGS: Clear to auscultation bilaterally. No wheezing or crackles. CVS: Regular rate and rhythm, S1 and S2 present, no murmurs or gallops appreciated. ABDOMEN: Soft, non-tender. Bowel sounds are normal. No abnormal abdominal pulsations. EXTREMITIES: Full ROM in all major joints, no edema, no cyanosis or clubbing. NEURO: Alert and oriented x 3. No acute neurological deficits. Speech is normal and follows commands. SKIN: Dry and warm Triage Information Reviewed: Yes Vital Signs On Initial Exam: Initial Vitals Temp Pulse Resp BP Pulse Ox 97.5 F 81 16 132/87 96 10/29/18 10:21 10/29/18 10:21 10/29/18 10:21 10/29/18 10:21 10/29/18 10:21 Vital Signs Reviewed: Yes Diagnostics - Vital Signs Vital Signs Temp Pulse Resp BP Pulse Ox 10/29/18 10:21 97.5 F 81 16 132/87 96 - Laboratory Result Diagrams: 10/29/18 11:19 10/29/18 11:19 Lab Statement: Any lab studies that have been ordered have been reviewed, and results considered in the medical decision making process. - EKG 1055 Cardiac Rate: NL - 68 BPM EKG Rhythm: Sinus Rhythm Summary of EKG Findings: NSR at 68 BPM, minimal ST depressions in lateral leads , similar to EKG done 07/23/18. 1236 Cardiac Rate: NL - 67 BPM EKG Rhythm: Sinus Rhythm Summary of EKG Findings: EKG at 1236 reveals NSR at 67 BPM, inverted T-waves in anterior leads with same minimal ST depressions in lateral leads. Re-Evaluation - Re-Evaluation First Eval Re-Evaluation Time: 12:29 Change: Worse Comment: Patient is having new epigastric chest pain that radiates to the back. She states she feels like she needs a nitro. Morphine did not help the pain. The last time patient needed nitro was before her bypass surgery on 07/10/18. Second Eval Re-Evaluation Time: 12:40 Change: Improved Comment: Patient agrees to be admitted for observation. BP is 98/54. Patient reports taking all of her medications today, including medication for HTN. Pain is improving without the nitro. Complex Multi-Symp Course/Dx Course Of Treatment: This patient is a 47 year old F recently diagnosed with Lyme's disease presenting to ED with a chief complaint of body aches and unable to walk 2/2 pain since 09/29/18. Patient just finished a three week course of doxycycline yesterday. Patient also recently had a quadruple bypass surgery in June and is complaining of chest soreness. EKG at 1055 revealed NSR at 68 BPM, minimal ST depressions in lateral leads, similar to EKG done 07/23/18. In the ED course, patient received Percocet, Morphine, Zofran, Rocephin. Blood work revealed Hgb 9.8, Hct 30, MCV 74, MCH 24, RDW 17, MPV 7.1, potassium 3.4, glucose 114, CRP 11.05, total protein 5.9. While in the ED, patient developed new onset chest pain that radiates to the back. Therefore I repeated an EKG. EKG at 1236 reveals NSR at 67 BPM, inverted T-waves in anterior leads with same minimal ST depressions in lateral leads. Case discussed with hospitalist Dr. Gambino, who stated she will evaluate the patient in the ED. Dr. Gambino reviewed that patient's case and found that she had a complete cardiac work-up two weeks ago including a stress test. Her work-up was completely normal. Dr. Gambino stated she will discharge the patient from a cardiac standpoint and have her follow-up with her striper and with Dr. Ayers. Patient understands and agrees with this plan. - Diagnoses Provider Diagnoses: Chest pain - Physician Notifications Discussed Care Of Patient With: Norm Ayers MD Time Discussed With Above Provider: 10:57 Instructed by Provider To: Other - Discussed patient case with Dr. Ayers, infectious disease, who recommended a dose of Rocephin and to have the patient call the office for an appointment. He states the patient had an appointment previously but missed it. At 1245 discussed patient case with Dr. Rosalinda Gambino , who accepted the patient for observation admission to [facility]. At 0152 Case discussed with hospitalist Dr. Gambino, who stated she will evaluate the patient in the ED. Dr. Gambino reviewed that patient's case and found that she had a complete cardiac work-up two weeks ago including a stress test. Her work-up was completely normal. Dr. Gambino stated she will discharge the patient from a cardiac standpoint and have her follow-up with her striper and with Dr. Ayers. Discharge ED - Sign-Out/Discharge Documenting (check all that apply): Patient Departure - Discharge Patient Received Moderate/Deep Sedation with Procedure: No - Discharge Plan Condition: Stable Disposition: HOME Prescriptions: traMADol TAB* [Ultram*] 50 mg PO Q6HR PRN #12 tab MDD 4 tabs PRN Reason: Pain - Moderate Referrals: Armen BERNABE,Norm Wilkes [Medical Doctor] - (Follow up this week) Enmanuel Brar MD [Primary Care Provider] - (Follow up in 4-7 days) Additional Instructions: 1. Activity as tolerated. 2. Return to the ER for any concerning issues. - Billing Disposition and Condition Condition: STABLE Disposition: Home - Attestation Statements Document Initiated by Scribe: Yes Documenting Scribe: Enmanuel Bustamante Provider For Whom Scribe is Documenting (Include Credential): Callie Mccain MD Scribe Attestation: I, Enmanuel Bustamante, scribed for Callie Mccain MD on 10/29/18 at 1806. Scribe Documentation Reviewed: Yes Provider Attestation: The documentation as recorded by the scribe, Enmanuel Bustamante accurately reflects the service I personally performed and the decisions made by me, Callie Mccain MD Status of Scribe Document: Viewed
[2018-10-29] MEDS ORDERED: cefTRIAXone(*) 2 GM in NS 0.9% 100 ML* 100 ML IVPB ONE (10:57)
[2018-10-29] MEDS ORDERED: Ondansetron INJ* 2 MG/ML VIAL IV ONE (10:57)
[2018-10-29] MEDS ORDERED: Morphine 4 MG/ML VIAL (1 ml) 4 MG/ML VIAL IV ONE (10:57)
[2018-10-29 11:36] LABS: Hematocrit 30 % (35-47); Hemoglobin 9.8 g/dL (12.0-16.0); Mean Corpuscular HGB Conc 33 g/dL (31-36); Mean Corpuscular Hemoglobin 24 pg (27-31); Mean Corpuscular Volume 74 fL (80-97); Mean Platelet Volume 7.1 fL (7.4-10.4); Platelet Count 274 10^3/uL (150-450); Red Blood Count 4.09 10^6 /uL (3.70-4.87); Red Cell Distribution Width 17 % (10-15); White Blood Count 4.8 10^3/uL (3.5-10.8)
[2018-10-29 11:45] LABS: ALT 18 U/L (7-52); AST 14 U/L (13-39); Albumin 3.5 g/dL (3.2-5.2); Albumin/Globulin Ratio 1.5 (1-3); Alkaline Phosphatase 95 U/L (34-104); Anion Gap 7 mmol/L (2-11); BUN/Creatinine Ratio 13.5 (8-20); Blood Urea Nitrogen 10 mg/dL (6-24); CO2 Carbon Dioxide 24 mmol/L (22-32); CRP High Sensitivity 11.05 mg/L (<2.00); Calcium 8.9 mg/dL (8.6-10.3); Chloride 106 mmol/L (101-111); EGFR African American 101.8 (>60); EGFR Non-African American 84.1 (>60); Globulin 2.4 g/dL (2-4); Glucose 114 mg/dL (70-100); Potassium 3.4 mmol/L (3.5-5.0); Sodium 137 mmol/L (135-145); Total Protein 5.9 g/dL (6.4-8.9)
[2018-10-29 12:30] LABS: ABS Eosinophils 0.1 10^3/ul (0-0.6); ABS Lymphocytes 1.2 10^3/ul (1.0-4.8); ABS Monocytes 0.3 10^3/ul (0-0.8); ABS Neutrophils 3.2 10^3/ul (1.5-7.7); Eosinophil % 2.2 %; Lymphocyte % 24.2 %; Nucleated Red Blood Cells % 0.1
[2018-10-29] MEDS ORDERED: Nitroglycerin TAB 0.4 MG* 0.4 MG TAB SL ONE (12:32)
[2018-10-29] MEDS ORDERED: NS 0.9% 1000 ML** 1,000 ML IV ONE (12:33)
[2018-10-29 15:11] VITALS: BP 119/82
--- NOTE | 2018-10-29 16:52 | CONS ---
CC: Dr. Brar; Dr. Ayers * CONSULTATION REPORT: DATE OF CONSULTATION: 10/29/18 - EMERGENCY DEPT PRIMARY CARE PROVIDER: Dr. Brar. HOUSE DESIGNER: Dr. Dover. CHIEF COMPLAINT: Diffuse body aches. HISTORY OF PRESENT ILLNESS: Ms. Casillas is a 47-year-old female who states that she was diagnosed with Lyme disease approximately 3 weeks ago. She completed a full course of doxycycline. She states that she took it for 3 weeks. Despite taking the doxycycline, she has had diffuse aches and pains. She describes having pain in her neck, in her knees, and ankles. She notes that her left leg is swollen. She thinks swelling may be related to the Lyme disease; however, there is a note from Dr. Dover in mid September, where he noted the left leg was swollen and it was felt to be secondary to having vein removed for her bypass surgery. The patient denies any fevers or chills. She does state also in the last several days, she has been trying to move; however, she felt quite fatigued and not been able to do as much as had wanted to help her partner. Once in the emergency room, the patient was also developed chest discomfort. She states it has been present for approximately 30 minutes at the time of my evaluation. She describes it as a band- like sensation. She thought perhaps initially it was related to the severe indigestion that she was having and she had only had a banana to eat today. She tried some crackers that did not make it any better. This has made her worried as it feels similar to what she had prior to her bypass surgery. The patient, of note, had a 4-vessel bypass surgery in June 2018. The patient also complains of headache and diarrhea but was told that the diarrhea was from the doxycycline. PAST MEDICAL HISTORY: 1. Coronary artery disease. 2. Anxiety and depression. PAST SURGICAL HISTORY: 1. A 4-vessel bypass. 2. Tubal ligation. 3. Cholecystectomy. 4. Removal of a cyst on her thumb. 5. Breast reduction surgery. MEDICATIONS: 1. Mary 180 mg p.o. daily. 2. Prozac 60 mg p.o. daily. 3. Lipitor 80 mg p.o. daily. 4. Aspirin 81 mg p.o. daily. 5. Albuterol 2 puffs inhaled q.4 hours p.r.n. shortness of breath. 6. Xanax 1 mg p.o. t.i.d. p.r.n. anxiety. 7. Metoprolol XL 50 mg p.o. daily. 8. Imdur 60 mg p.o. daily. 9. Gabapentin 300 mg p.o. b.i.d. 10. Flovent 2 puffs inhaled twice daily. 11. BuSpar 15 mg p.o. b.i.d. 12. Amlodipine 5 mg p.o. daily. 13. Brilinta 90 mg p.o. b.i.d. 14. Protonix 40 mg p.o. daily. ALLERGIES: No known drug allergies. FAMILY HISTORY: Mom is living, she is 70, she has diabetes. Dad is at the age of 75, he had coronary disease, hypertension, diabetes, past stroke, and ultimately of pancreatic cancer. SOCIAL HISTORY: The patient is a former smoker. She quit approximately 6 months ago. She previously smoked 1 half packs a day for 30 years. She drinks alcohol rarely. She states that she has not been working over the last 5 years due to her anxiety and depression. She is not , though she has been living with her long-term partner, Deepak. He is her healthcare proxy. They have 2 children. REVIEW OF SYSTEMS: A complete 11-system review of systems is obtained. Pertinent positive and negative are as per HPI and otherwise negative. PHYSICAL EXAM: Blood pressure 97/60, pulse 65, respirations 15, temp 97.5, O2 sat 97% on room air. In general, the patient is a well-developed, morbidly obese middle-aged female, seen lying in the stretcher in no acute distress. HEENT: Pupils equal, round. Extraocular muscles were intact. Oropharynx is clear. Oral mucosa is moist. There is no submandibular, cervical, or supraclavicular adenopathy. Cardiac: Normal S1, S2. Regular rate and rhythm. I do not appreciate any murmurs. There is 1+ left lower extremity pitting edema. Pulmonary: Lungs are clear to auscultation bilaterally. Abdomen: Bowel sounds present. Abdomen is soft, nontender, nondistended. Musculoskeletal: There is no cyanosis or clubbing of the digits. There is full active range of motion of all 4 extremities. There is no obvious joint effusion. Neuro: Cranial nerves II through XII are grossly intact. Sensation is intact to light touch throughout. Strength is 5/5 and symmetric in both upper and lower extremities bilaterally. Psych: The patient is alert. She is oriented x3. Affect appears appropriate. DIAGNOSTIC STUDIES/LAB DATA: WBC 4.8, hemoglobin 9.8, hematocrit 30, platelets 274. Sodium 137, potassium 3.4, chloride 106, CO2 of 24, BUN 10, creatinine 0.74, glucose 114, lactic acid 1.5. Calcium 8.9, bilirubin 0.4, AST 14, ALT 18 , alk phos 95. Troponin 0. Albumin 3.5, lipase 25. EKG reveals normal sinus rhythm with inverted T-waves in the anterior leads. This is unchanged from EKG done in July 2018. ASSESSMENT AND PLAN: Ms. Casillas is a 47-year-old female with history of coronary artery disease, hypertension, depression, and anxiety, who presents to the emergency room with complaints of diffuse body aches and while in the emergency room, developed chest pain. 1. Diffuse body aches. My suspicion is the patient's symptoms are secondary to post Lyme syndrome. We reviewed the fact that she does not have chronic Lyme infection, but likely is suffering from the after effects of having an infection. We discussed that she does not need any further antibiotic therapy. The patient will be getting in to see Dr. Ayers in the very near future. A referral has already been sent from her PCP's office. The patient did receive a dose of ceftriaxone in the emergency room. In terms of the aches and pains, she notes that this is limiting her ability to get around as well she had been previously. Because of this impacting her ability to ambulate, I did discuss this with her that I will send a prescription for tramadol to be used as needed. I sent 3 days' worth or 12 tablets. 2. Chest pain. At this point, my suspicion is incredibly low the pain the patient developed in the emergency room while at rest was in fact cardiac in nature. She underwent quadruple bypass in June of this year and had a negative stress test at the beginning of September in Dr. Dover's office. At this point, the patient will have a followup troponin to ensure that it remains negative; however, from a cardiac standpoint, she can resume her usual medications. 3. Hypertension. The patient's blood pressure in the emergency room did go quite soft. She received a dose of morphine which likely has contributed to her drop in blood pressure. As she did go somewhat low, I am going to ask her to hold her amlodipine until she sees her PCP in followup to ensure that her blood pressure returns back up to a normal range. She is asymptomatic with her blood pressure in the 90s systolically at this time. 4. Anxiety and depression. The patient will continue on her usual home medication regimen. 5. The patient will be discharged home from the emergency room to follow up with both Dr. Brar and Dr. Ayers. TIME SPENT: Sixty-five minutes was spent on this consultation. [id number]/CPS #: [id number] [place]
[2018-10-30 16:30] LABS: Ferritin 10.6 ng/mL (11-307)
[2018-10-30 16:35] LABS: Folate 9.28 ng/mL (>3.99)
[2018-10-30 16:47] LABS: % Iron Saturation 9 % (15-55); Iron 41 ug/dL (50-212); Total Iron Binding Capacity 448 mcg/dL (250-450); Transferrin 320 mg/dL (203-362)
== END 2018-10-29 15:11 | disposition home or self-care (01) ==
LOC: ED 10:19
DX: R07.89 Other chest pain (principal); M79.10 Myalgia, unspecified site; R60.0 Localized edema; R10.13 Epigastric pain; R51 Headache; R19.7 Diarrhea, unspecified; I10 Essential (primary) hypertension; J45.909 Unspecified asthma, uncomplicated; K21.9 Gastro-esophageal reflux disease without esophagitis; F41.9 Anxiety disorder, unspecified; F32.9 Major depressive disorder, single episode, unspecified; Z95.1 Presence of aortocoronary bypass graft; Z90.49 Acquired absence of other specified parts of digestive tract; Z82.49 Family history of ischemic heart disease and other diseases of the circulatory system; Z83.3 Family history of diabetes mellitus; Z82.3 Family history of stroke; Z80.0 Family history of malignant neoplasm of digestive organs; Z87.891 Personal history of nicotine dependence
CPT/HCPCS: 36415; 80053; 82607; 82728; 82746; 83540; 83550; 83605; 83690; 84484; 85025; 86141; 93005; 96361; 96365; 96375; 99283; J0696; J2270; J2405

== ENCOUNTER 2018-11-06 06:36 | Emergency (ER) | payer OTHER ==
--- OUTSIDE RECORDS SUMMARY | 2018-11-06 06:45 | XMS REPORT | Continuity of Care Document ---
:1970 External Reference #:[id number] Author Name Annmarie Jacques MD (transmitted by agent of provider Rachelle Kahn) Address [address] [place] [address] Care Team Providers Name Role Phone Enmanuel Brar MD - Internal Care Team Information [employer] Engineer [phone] Medicine Problems Active Problems Provider Date Knee joint effusion Annmarie Jacques MD Onset: 09/08/2018 Sprain of knee and leg Annmarie Jacques MD Onset: 09/08/2018 Social History Type Date Description Comments Sex Unknown ETOH Use Denies alcohol use Tobacco Use Start: Unknown End: Patient is a former quit 4 months ago Unknown smoker Recreational Drug Use Denies Drug Use Smoking Status Reviewed: 10/31/18 Patient is a former quit 4 months ago smoker Exercise Type/Frequency Exercises regularly walking daily Allergies, Adverse Reactions, Alerts Description No Known Drug Allergies Medications Active Medications SIG Qnty Indications Ordering Provider Date Fexofenadine HCL 1 by mouth every Unknown 180mg day Tablets Pantoprazole Sodium 1 by mouth every Unknown day 40mg Tablets Gabapentin 1 by mouth three Unknown 300mg times a day Capsules Aspir-Low 1 by mouth every 90tabs Rodger D. Brand, 81mg Tablets day M.D. Atorvastatin Calcium 1 by mouth every Unknown day 80mg Tablets Brilinta 1 tab by mouth Unknown 90mg Tablets twice a day Fluoxetine HCL 1 by mouth every Unknown 60mg day Tablets Metoprolol Succinate 1 by mouth every Unknown ER day 50mg Tablets ER 24HR Isosorbide 1 by mouth every Unknown Mononitrate ER day 60mg Tablets ER 24HR Alprazolam one by mouth at Unknown 1mg Tablets bedtime Tramadol HCL Take One Tablet Unknown 50mg By Mouth Every 6 Tablets Hours as Needed For Moderate Pain Maximum Daily Dose Of 4 Per Day Medications Administered in Office Medication SIG Qnty Indications Ordering Provider Date Triamcinolone (Kenalog) Jacquelynmarcos SiddiquiGIOVANI fall 10/06/2018 Injection Inj, Regadenoson, 0.1 MG Rodger Dover M.D. 09/22/2018 Injection Technetium TC 99M TetrofosminRodger M.D. 09/22/2018 Per Unit Dose Up To 40 Millicuries Injection Technetium TC 99M TetrofosminRodger M.D. 09/22/2018 Per Unit Dose Up To 40 Millicuries Injection Immunizations Description No Information Available Vital Signs Date Vital Result Comment 10/31/2018 10:50am Height 65 inches 5'5" Weight 230.00 lb Heart Rate 85 /min BP Systolic 142 mmHg BP Diastolic 88 mmHg Body Temperature 97.8 F Pain Level 10 BMI (Body Mass Index) 38.3 kg/m2 10/30/2018 2:37pm Height 65 inches 5'5" Weight 230.00 lb Heart Rate 72 /min BP Systolic Sitting 104 mmHg BP Diastolic Sitting 60 mmHg Respiratory Rate 14 /min Body Temperature 97.7 F BMI (Body Mass Index) 38.3 kg/m2 Results Description No Information Available Procedures Date Code Description Status 10/06/2018 52738 Inject/Drain Joint/Bursa Major W/O US Completed 09/22/2018 68139 Stress Test Completed 09/22/2018 40276 Myocardial Perfusion Imaging Tomographic (Spect) Multiple Completed Studies 08/02/2018 23684 EKG Tracing & Interpretation Completed 07/04/2018 99493 EKG, Interpretation Only Completed Medical Devices Description No Information Available Encounters Type Date Location Provider Dx Diagnosis Office Visit 10/06/2018 Orthopedic Annmarie Jacques MD M25.461 Effusion, right 8:30a [facility] knee M17.11 Unilateral primary osteoarthritis, right knee Office Visit 10/04/2018 8:15a [facility] Rodger Wilkes 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 (Nstemi) Hospitalists myocardial infarction E78.5 Hyperlipidemia, unspecified I10 Essential (primary) hypertension Office Visit 07/03/2018 [facility] Flor R07.9 Chest pain, 9:53a Assoc,blaze Garcia, PROSTHETICS ASSISTANT unspecified Hospitalists E78.5 Hyperlipidemia, unspecified K21.9 Gastro-esophageal reflux disease without esophagitis J45.909 Unspecified asthma, uncomplicated F41.9 Anxiety disorder, unspecified Z87.891 Personal history of nicotine dependence Office Visit 07/03/2018 2:14p [facility] Rodger Wilkes I21.4 Non-St elevation Of Jurgen Dover M.D. (Nstemi) myocardial infarction I25.10 Athscl heart disease of [place] coronary artery w/o ang pctrs Assessments Date Code Description Provider 10/31/2018 M25.562 Pain in left knee Annmarie Jacques MD 10/31/2018 M25.462 Effusion, left knee Annmarie Jacques MD 10/30/2018 M25.562 Pain in left knee Norm Holloway M.D. 10/30/2018 D64.9 Anemia, unspecified Norm Holloway M.D. 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 [place] coronary artery without angina pectoris 09/08/2018 M25.461 Effusion, right knee Annmarie Jacques MD 09/08/2018 S83.91xA Sprain of unspecified site of right Annmarie Jacques MD knee, initial encounter 09/08/2018 M25.562 Pain in left knee Annmarie Jacques MD 09/08/2018 M25.462 Effusion, left knee Annmarie Jacques MD 08/02/2018 I10 Essential (primary) hypertension Rodger Dover M.D. 08/02/2018 I25.10 Atherosclerotic heart disease of Rodger Dover M.D. [place] coronary artery with 08/02/2018 Z98.61 Coronary angioplasty status Rodger Dover M.D. 07/04/2018 R07.9 Chest pain, unspecified Julian Dash M.D. 07/04/2018 I21.4 Non-St elevation ([facility]stemi) myocardial Vesta Simons, N.P. infarction 07/04/2018 E78.5 Hyperlipidemia, unspecified Vesta Simons, N.P. 07/04/2018 I10 Essential (primary) hypertension Vesta Simons, N.P. 07/03/2018 R07.9 Chest pain, unspecified Flor Garcia, PROSTHETICS ASSISTANT 07/03/2018 I21.4 Non-St elevation (Nstemi) myocardial Rodger Dover M.D. infarction 07/03/2018 E78.5 Hyperlipidemia, unspecified Flor Garcia, PROSTHETICS ASSISTANT 07/03/2018 I25.10 Atherosclerotic heart disease of Rodger Dover M.D. [place] coronary artery with 07/03/2018 K21.9 Gastro-esophageal reflux disease Flor Garcia PROSTHETICS ASSISTANT without esophagitis 07/03/2018 J45.909 Unspecified asthma, uncomplicated Flor Garcia, PROSTHETICS ASSISTANT 07/03/2018 F41.9 Anxiety disorder, unspecified Flor Garcia, PROSTHETICS ASSISTANT 07/03/2018 Z87.891 Personal history of nicotine Flor Garcia, JANENE dependence Plan of Treatment Future Appointment(s):11/06/2018 2:00 pm - Norm Holloway M.D. at [facility] Dpgjeyvs39/10/2019 - Annmarie Jacques, MDM25.562 Pain in left kneeNew Xrays:Knee Left 4+ VWS, Ordered: 10/31/18M25.462 Effusion, left kneeNew Labs:Body Fluid Cell Count, Ordered: 10/31/18Body Fluid C&S, Ordered: Fungal Cult Other Sources, Ordered: 10/31/18Body Fluid Crystals, Ordered: 12/09Mycobacterial Culture,Blood, Ordered: 10/31/18Anaerobic Culture, Ordered: 10/31/18Lyme Disease PCR Tissue/Fluid, Ordered: 10/31/18Follow up:Follow up: will call with results Functional Status Description No Information Available Mental Status Description No Information Available Referrals Refer to Reason for Referral Status Appt Date Hieu Mendoza MD 47 year old woman 3 weeks left knee pain, Sent warmth, effusion ?aspiration for cell counts, cultures, crystals, Lyme PCR [address] [place] [address] [place] [address] [phone]
--- OUTSIDE RECORDS SUMMARY | 2018-11-06 06:45 | XMS REPORT | Continuity of Care Document ---
:1970 External Reference #:[id number] Author Name Norm Holloway M.D. (transmitted by agent of provider Maria C Pierce ) Address [address] [place] [id number] Care Team Providers Name Role Phone Enmanuel Brar MD - Internal Care Team Information Compounder Helper Medicine Problems Active Problems Provider Date Knee joint effusion Annmarie Jacques MD Onset: 09/08/2018 Sprain of knee and leg Annmarie Jacques MD Onset: 09/08/2018 Social History Type Date Description Comments Sex Unknown ETOH Use Denies alcohol use Tobacco Use Start: Unknown End: Patient is a former quit 4 months ago Unknown smoker Recreational Drug Use Denies Drug Use Smoking Status Reviewed: 10/30/18 Patient is a former quit 4 months [...] 90tabs Rodger D. Brand, 81mg Tablets day M.DJarvis ARCE Atorvastatin Calcium 1 by mouth every Unknown [...] Qnty Indications Ordering Provider Date Triamcinolone (Kenalog) GIOVANI Isbell 10/06/2018 Injection Inj, Regadenoson, 0.1 MG Rodger Dover M.D. 09/22/2018 Injection Technetium TC 99M Tetrofosmin, Rodger Dover M.D. 09/22/2018 Per Unit Dose Up To 40 Millicuries Injection Technetium TC 99M TetrofosminRodger M.D. 09/22/2018 Per Unit Dose Up To 40 Millicuries Injection Immunizations Description No Information Available Vital Signs Date Vital Result Comment 10/30/2018 2:37pm Height 65 inches 5'5" Weight 230.00 lb Heart Rate 72 /min BP Systolic Sitting 104 mmHg BP Diastolic Sitting 60 mmHg Respiratory Rate 14 /min Body Temperature 97.7 F BMI (Body Mass Index) 38.3 kg/m2 10/06/2018 8:14am Height 65 inches 5'5" Weight 242.00 lb BP Systolic 124 mmHg BP Diastolic 78 mmHg Respiratory Rate 18 /min Pain Level 10 BMI (Body Mass Index) 40.3 kg/m2 Results Description No Information Available Procedures Date Code Description Status 10/06/2018 58507 Inject/Drain Joint/Bursa Major W/O US Completed 09/22/2018 87764 Stress Test Completed 09/22/2018 91994 Myocardial Perfusion Imaging Tomographic (Spect) Multiple Completed Studies 08/02/2018 30790 EKG Tracing & Interpretation Completed 07/04/2018 25829 EKG, Interpretation Only Completed Medical Devices Description No Information Available Encounters Type Date Location Provider Dx Diagnosis Office Visit 10/06/2018 Orthopedic Annmarie Jacques MD M25.461 Effusion, right 8:30a [facility] knee M17.11 Unilateral primary osteoarthritis, right knee Office Visit 10/04/2018 8:15a [facility] Rodger Wilkes 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 (Nstemi) Hospitalists myocardial infarction E78.5 Hyperlipidemia, unspecified I10 Essential (primary) hypertension Office Visit 07/03/2018 [facility] Flor R07.9 Chest pain, 9:53a Assoc,blaze Garcia, INTERNATIONAL FREIGHT FORWARDER unspecified Hospitalists E78.5 Hyperlipidemia, unspecified K21.9 Gastro-esophageal reflux disease without esophagitis J45.909 Unspecified asthma, uncomplicated F41.9 Anxiety disorder, unspecified Z87.891 Personal history of nicotine dependence Office Visit 07/03/2018 2:14p [facility] Rodger Wilkes I21.4 Non-St elevation Of Jurgen Dover M.D. (Nstemi) myocardial infarction I25.10 Athscl heart disease of [place] coronary artery w/o ang pctrs Assessments Date Code Description Provider 10/30/2018 M25.562 Pain in left knee Norm Holloway M.D. 10/30/2018 D64.9 Anemia, unspecified Norm Holloway M.D. 10/06/2018 M17.11 Unilateral primary osteoarthritis, GIOVANI Isbell right knee 10/06/2018 M25.461 Effusion, right knee Annmarie Jacques MD 10/06/2018 M17.11 Unilateral primary osteoarthritis, Annmarie Jacques MD right knee 10/04/2018 I25.10 Atherosclerotic heart disease of Rodger Dover M.D. [place] coronary artery without angina pectoris 09/22/2018 I25.10 Atherosclerotic heart disease of Rodger Dover M.D. [place] coronary artery without angina pectoris 09/08/2018 M25.461 Effusion, right knee Annmarie Jacques MD 09/08/2018 S83.91xA Sprain of unspecified site of right Annmarie Jacques MD knee, initial encounter 09/08/2018 M25.562 Pain in left knee Annmarie Jacques MD 09/08/2018 M25.462 Effusion, left knee Annmarie Jacques MD 08/02/2018 I10 Essential (primary) hypertension Rodger Dover M.D. 08/02/2018 I25.10 Atherosclerotic heart disease of Rodger Dover M.D. [place] coronary artery with 08/02/2018 Z98.61 Coronary angioplasty status Rodger Dover M.D. 07/04/2018 R07.9 Chest pain, unspecified Julian Dash M.D. 07/04/2018 I21.4 Non-St elevation (Nstemi) myocardial Vesta Simons, N.P. infarction 07/04/2018 E78.5 Hyperlipidemia, unspecified Vesta Simons, N.P. 07/04/2018 I10 Essential (primary) hypertension Vesta Simons, N.P. 07/03/2018 R07.9 Chest pain, unspecified Flor Garcia, INTERNATIONAL FREIGHT FORWARDER 07/03/2018 I21.4 Non-St elevation (Nstemi) myocardial Rodger Dover M.D. infarction 07/03/2018 E78.5 Hyperlipidemia, unspecified Flor Radha, INTERNATIONAL FREIGHT FORWARDER 07/03/2018 I25.10 Atherosclerotic heart disease of Rodger Dover M.D. [place] coronary artery with 07/03/2018 K21.9 Gastro-esophageal reflux disease Flor Garcia NP without esophagitis 07/03/2018 J45.909 Unspecified asthma, uncomplicated Flor Garcia, INTERNATIONAL FREIGHT FORWARDER 07/03/2018 F41.9 Anxiety disorder, unspecified Flor Radha, INTERNATIONAL FREIGHT FORWARDER 07/03/2018 Z87.891 Personal history of nicotine Flor Garcia NP dependence Plan of Treatment Future Appointment(s):11/06/2018 2:00 pm - Norm Holloway M.D. at [facility] Pnriljjo41/09/2019 - Norm Holloway M.D.M25.562 Pain in left kneeReferral:Hieu Mendoza MD, Surgery,OrthopedicFollow up:next weekD64.9 Anemia, unspecified Functional Status Description No Information Available Mental Status Description No Information Available Referrals Refer to Dr Reason for Referral Status Appt Date Hieu Mendoza MD 47 year old woman 3 weeks left knee pain, Created / warmth, effusion ?aspiration for cell counts, cultures, crystals, Lyme PCR [address] [place] [address] [phone]
[2018-11-06] MEDS ORDERED: HYDROcodone/ACETAMIN 5-325 MG* 1 TAB PO ONE (06:57)
--- NOTE | 2018-11-06 07:10 | ED ---
Lower Extremity - HPI Summary HPI Summary: 47-year-old female presents with left knee pain for the past couple weeks. States she just had a knee tap done a couple days to test for Lyme. States she was diagnosed with lyme three weeks ago. She completed the course of Bactrim. States that today the pain has gotten worse. She states Tylenol has not been touching the pain. She states that denies any down her calf and into her ankle. She states that her leg is more swollen than normal. No fevers or chills. States it is very difficult to ambulate on the joint. she had cortisone injection in right knee a while ago which helped with this pain. has follow up with dr. diaz today. - History of Current Complaint Chief Complaint: EDExtremityLower Stated Complaint: KNEE PAIN PER PT Time Seen by Provider: 11/06/18 06:46 Hx Last Menstrual Period: 10/22/17 Pain Intensity: 10 - Allergies/Home Medications Allergies/Adverse Reactions: Allergies Allergy/AdvReac Type Severity Reaction Status Date / Time No Known Allergies Allergy Verified 11/06/18 06:39 PMH/Surg Hx/FS Hx/Imm Hx Endocrine/Hematology History: Denies: Hx Anticoagulant Therapy, Hx Diabetes, Hx Thyroid Disease Cardiovascular History: Reports: Hx Angina - 12/2013- STATES WAS ANXIETY RELATED , Hx Coronary Artery Disease, Hx Hypertension, Other Cardiovascular Problems/ Disorders - CABG Denies: Hx Hypercholesterolemia, Hx Myocardial Infarction, Hx Pacemaker/ICD, Hx Valvular Heart Disease Respiratory History: Reports: Hx Asthma - PRN PROAIR, Other Respiratory Problems /Disorders - VOCAL CORD POLYPS Denies: Hx Chronic Obstructive Pulmonary Disease (COPD) GI History: Reports: Hx Gastroesophageal Reflux Disease - ROUTINE MEDICATION FOR Denies: Hx Ulcer History: Denies: Hx Renal Disease Sensory History: Reports: Hx Contacts or Glasses - GLASSES Denies: Hx Hearing Aid Opthamlomology History: Reports: Hx Contacts or Glasses - GLASSES Neurological History: Denies: Hx Dementia, Hx Seizures, Hx Spinal Cord Injury, Hx Transient Ischemic Attacks (TIA) Psychiatric History: Reports: Hx Anxiety - MEDICATION FOR, Hx Depression - MEDICATION FOR Denies: Hx Panic Disorder, Hx Substance Abuse - Surgical History Surgery Procedure, Year, and Place[place] [place] 16 [place] [facility] [place] [place] [place] CABG- QUADRUPLE BYPASS [place] Hx Anesthesia Reactions: Yes - NAUSEA AND VOMITING - Immunization History Immunizations Up to Date: Yes Infectious Disease History: No Infectious Disease History: Denies: Hx Clostridium Difficile, Hx Hepatitis, Hx Human Immunodeficiency Virus (HIV), History Other Infectious Disease, Traveled Outside the [place] in Last 30 Days - Family History Known Family History: Positive: Hypertension, Diabetes, Non-Contributory - Social History Alcohol Use: Occasionally Hx Substance Use: No Substance Use Type: Reports: None Hx Tobacco Use: Yes Smoking Status (MU): Former Smoker Type: Cigarettes Amount Used/How Often: 1/4-1/ ppd X 20 YEARS Have You Smoked in the Last Year: Yes Review of Systems Negative: Fever Negative: Chest Pain Negative: Shortness Of Breath Positive: Myalgia - left knee pain All Other Systems Reviewed And Are Negative: Yes Physical Exam Triage Information Reviewed: Yes Vital Signs On Initial Exam: Initial Vitals Temp Pulse Resp BP Pulse Ox 97.5 F 70 15 104/63 96 11/06/18 06:37 11/06/18 06:37 11/06/18 06:37 11/06/18 06:37 11/06/18 06:37 Vital Signs Reviewed: Yes Appearance: Positive: Well-Appearing Skin: Positive: Warm, Dry Head/Face: Positive: Normal Head/Face Inspection Eyes: Positive: Normal, Conjunctiva Clear ENT: Positive: Pharynx normal Respiratory/Lung Sounds: Positive: Clear to Auscultation, Breath Sounds Present Cardiovascular: Positive: Normal, RRR Musculoskeletal: Positive: Strength/ROM Intact - left knee with pain, Other - good pulses, no erythema, tenderness left calf, ankle, and knee, Neurological: Positive: Normal Psychiatric: Positive: Normal Diagnostics - Vital Signs Vital Signs Temp Pulse Resp BP Pulse Ox 11/06/18 06:37 97.5 F 70 15 104/63 96 - Laboratory Result Diagrams: 11/06/18 07:03 Lab Statement: Any lab studies that have been ordered have been reviewed, and results considered in the medical decision making process. - Ultrasound No standard instances Ultrasound Interpretation Completed By: Radiologist Summary of Ultrasound Findings: IMPRESSION: NO LEFT LOWER EXTREMITY DEEP VEIN THROMBOSIS Re-Evaluation - Re-Evaluation First Eval Re-Evaluation Time: 08:19 Change: Unchanged Comment: pain same Second Eval Re-Evaluation Time: 09:00 Comment: patient requesting call dr do to see if can get steriod injection today in ED. Lower Extremity Course/Dx - Course Course Of Treatment: 47-year-old female presents with left knee pain for the past couple weeks. States she just had a knee tap done a couple days to test for Lyme. States she was diagnosed with lyme three weeks ago. She completed the course of Bactrim. States that today the pain has gotten worse. She states Tylenol has not been touching the pain. She states that denies any down her calf and into her ankle. She states that her leg is more swollen than normal. No fevers or chills. States it is very difficult to ambulate on the joint. On exam has edema noted to lower leg. Full range of motion with pain. Tenderness over left knee and calf. wbc normal. crp 9 which is similiar to previous. joint does not appear like septic joint. u/s shows no dvt. attempted to get a hold of jason per dr silveira but unable to do so in timely fashion so will have follow up with ortho. patient understand and agrees with plan. - Diagnoses Differential Diagnosis/HQI/PQRI: Positive: DVT, Gout, Septic Arthritis, Sprain Provider Diagnoses: Left knee pain Discharge ED - Sign-Out/Discharge Documenting (check all that apply): Patient Departure Patient Received Moderate/Deep Sedation with Procedure: No - Discharge Plan Condition: Good Disposition: HOME Prescriptions: HYDROcodone/ACETAMIN 5-325 MG* [Norden 5-325 TAB*] 1 tab PO Q6H PRN #8 tab MDD 4 PRN Reason: Pain - Severe Patient Education Materials: Knee Pain (ED) Referrals: Enmanuel Brar MD [Primary Care Provider] - Annmarie Do MD [Medical Doctor] - Additional Instructions: follow up with ortho ice, elevate take tyenlol or ibuprofen every 6 hours as needed for pain, take norco for break through pain every 6 hours Return to ED if develop any new or worsening symptoms - Billing Disposition and Condition Condition: GOOD Disposition: Home
[2018-11-06 07:14] LABS: ABS Eosinophils 0.2 10^3/ul (0-0.6); ABS Monocytes 0.3 10^3/ul (0-0.8); ABS Neutrophils 3.4 10^3/ul (1.5-7.7); Eosinophil % 3.2 %; Hematocrit 31 % (35-47); Hemoglobin 10.1 g/dL (12.0-16.0); Lymphocyte % 20.5 %; Mean Corpuscular HGB Conc 32 g/dL (31-36); Mean Corpuscular Hemoglobin 24 pg (27-31); Mean Corpuscular Volume 74 fL (80-97); Mean Platelet Volume 7.4 fL (7.4-10.4); Nucleated Red Blood Cells % 0.1; Platelet Count 361 10^3/uL (150-450); Red Blood Count 4.19 10^6 /uL (3.70-4.87); Red Cell Distribution Width 17 % (10-15)
[2018-11-06 08:54] LABS: Erythrocyte Sed Rate 26 mm/Hr (0-19)
[2018-11-06 10:04] VITALS: BP 105/49
== END 2018-11-06 10:08 | disposition home or self-care (01) ==
LOC: ED 06:36
DX: M25.562 Pain in left knee (principal); M79.662 Pain in left lower leg; I10 Essential (primary) hypertension; J45.909 Unspecified asthma, uncomplicated; K21.9 Gastro-esophageal reflux disease without esophagitis; F41.9 Anxiety disorder, unspecified; F32.9 Major depressive disorder, single episode, unspecified; Z95.1 Presence of aortocoronary bypass graft; Z87.891 Personal history of nicotine dependence
CPT/HCPCS: 36415; 85025; 85652; 86140; 99282